=== PATIENT | female | born 1975 | race Caucasian/White ===

== ENCOUNTER 2021-11-27 10:02 | Outpatient (REF) | payer MEDICAID, SELFPAY ==
[2021-11-27 10:46] LABS: Binax Internal Control QC Valid; Binax Lot number: 9864; Binax Now Covid-19 Ag Negative (Negative)
== END 2021-11-27 10:03 | disposition home or self-care (01) ==
LOC: HO.LAB 10:02
PROVIDERS: Visit Provider Internal Medicine
DX: Z20.822 Contact with and (suspected) exposure to COVID-19 (principal)
CPT/HCPCS: C9803

== ENCOUNTER 2022-04-19 11:27 | Outpatient (REF) | payer MEDICAID, SELFPAY ==
[2022-04-19 12:17] LABS: COVID-19 Test Negative (Negative)
== END 2022-04-19 11:28 | disposition home or self-care (01) ==
LOC: HO.LAB 11:27
PROVIDERS: Visit Provider Internal Medicine
DX: Z20.822 Contact with and (suspected) exposure to COVID-19 (principal)
CPT/HCPCS: 87635; C9803

== ENCOUNTER → 2022-08-12 22:33 | Outpatient (REF) | payer MEDICAID, SELFPAY | LOC: HO.SL 22:33 | PROVIDERS: Visit Provider Nurse Practitioner Primary Care | DX: G47.33 Obstructive sleep apnea (adult) (pediatric) (principal) | CPT/HCPCS: 95810 ==

== ENCOUNTER 2023-05-07 08:15 | Outpatient (REF) | payer MEDICAID, SELFPAY ==
--- NOTE | ~2023-05-07 | MM_ITS ---
EXAMINATION: MM SCREENING DIGITAL BREAST TOMOSYNTHESIS, BILATERAL CLINICAL INFORMATION: Screening. Asymptomatic. Age 47. No prior mammography. No known family history breast cancer. The lifetime risk of breast cancer based on the Tyrer-Cuzick Model is 7%. COMPARISON: None (current study represents initial baseline exam). TECHNIQUE: Digital breast tomosynthesis is performed in both the craniocaudal and mediolateral oblique views along with computer-aided detection (CAD). Synthesized 2D images are generated from the tomosynthesis. Additional bilateral CC and additional bilateral MLO views are provided. FINDINGS: There are scattered areas of fibroglandular density (ACR BI-RADS breast composition Category b). Breast tissue composition borders on predominantly fatty. Background stromal markings are normal. No architectural abnormality. There are no significant masses, abnormal calcifications, or other abnormalities. The axilla and skin contours are unremarkable. MM/MM tomosynthesis screening BI IMPRESSION: No mammographic evidence of malignancy. ASSESSMENT: BI-RADS 1: Negative RECOMMENDATION: Routine annual mammography screening. This patient's information was entered into a reminder system with a target due date for their next mammogram.
== END 2023-05-07 08:16 | disposition home or self-care (01) ==
LOC: HO.MAMMO 08:15
PROVIDERS: PCP Nurse Practitioner Primary Care; Visit Provider Nurse Practitioner Primary Care
DX: Z12.31 Encounter for screening mammogram for malignant neoplasm of breast (principal)
CPT/HCPCS: 77063; 77067

== ENCOUNTER 2024-02-16 15:33 | Outpatient (REF) | payer MEDICAID, SELFPAY ==
[2024-02-19 07:48] LABS: TS Negative Control Passed; TS Panel A 0; TS Panel B 0; TS Positive Control Passed; TSpotTB Negative (Negative)
== END 2024-02-16 15:34 | disposition home or self-care (01) ==
LOC: HO.HHCL 15:33
PROVIDERS: Visit Provider Nurse Practitioner Primary Care
DX: Z11.1 Encounter for screening for respiratory tuberculosis (principal)
CPT/HCPCS: 36415; 86481

== ENCOUNTER 2024-03-01 15:28 | Emergency (ER) | payer MEDICAID, SELFPAY ==
--- NOTE | ~2024-03-01 | CT_ITS ---
EXAMINATION: CT ABDOMEN AND PELVIS WITHOUT CONTRAST CLINICAL INFORMATION: Right-sided flank pain COMPARISON: CT abdomen pelvis 06/30/2011 TECHNIQUE: Multidetector volumetric imaging was performed from the superior aspect of the liver through the pubic symphysis. Sagittal and coronal reformatted images were obtained on the technologist's workstation. This CT examination was performed using dose optimization techniques as appropriate, variously including the following: *Automated exposure control *Adjustment of mA and/or kV according to patient size (this includes techniques or standardized protocols for targeted exams where dose is matched to indication/reason for exam; i.e. extremities or head) *Use of iterative reconstruction technique DLP: 986 mGy-cm FINDINGS: LUNG BASES: The visualized lung bases are unremarkable. LIVER, GALLBLADDER, AND BILIARY TREE: The liver is enlarged measuring 21.2 cm in cephalocaudad dimension with decreased attenuation consistent with hepatic steatosis. No focal hepatic lesion or biliary ductal dilatation is present. The gallbladder is unremarkable with no evidence of radiopaque gallstones, gallbladder wall thickening, or obvious pericholecystic inflammatory changes. PANCREAS: Unremarkable. SPLEEN: Spleen is enlarged at 13 cm in size. ADRENAL GLANDS: Unremarkable. KIDNEYS AND URETERS: The kidneys are normal in size, shape, and attenuation. No hydronephrosis, hydroureter, or calculi seen. No perinephric stranding. BLADDER: Unremarkable. GASTROINTESTINAL TRACT: The small and large bowel are unremarkable. The appendix is unremarkable. ABDOMINAL WALL: No significant hernia is appreciated. LYMPH NODES: No retroperitoneal lymphadenopathy VASCULAR: Unremarkable. PELVIC VISCERA: An anteverted uterus is present with a lobulation on the right consistent with a fibroid. This should be confirmed with pelvic ultrasound. OSSEOUS STRUCTURES: Mild degenerative changes are present throughout the spine. No bony destructive lesions CT/CT abdomen pelvis wo IV con IMPRESSION: 1. A cause for the patient's right-sided flank pain has not been found. 2. Incidental note made of an enlarged fatty liver, mild splenomegaly and probable uterine fibroid. Pelvic ultrasound is recommended for further evaluation. Fleischner guidelines were followed.
[2024-03-01 15:49] VITALS: BP 172/100; PULSE 95; RESP 18; TEMP 36.6; O2SAT 97; BMI 48.7
--- NOTE | 2024-03-01 15:49 | ED_ITS ---
HPI - General Adult General Chief complaint: Abdominal Pain Stated complaint: lower rt abd pain Time Seen by Provider: 03/01/24 20:34 Source: patient, RN notes reviewed and old records reviewed Mode of arrival: ambulatory Limitations: no limitations History of Present Illness HPI narrative: 48-year-old female presents for evaluation of right lower abdominal pain. She reports her symptoms started mild 3 days ago and got worse a few hours prior to arrival. She reports her pain radiates to right flank and down her right leg. The pain is worse with movement or palpation. Denies any nausea vomiting, diarrhea. Denies any burning with urination or urinary frequency. She has no fevers or chills She describes the pain as 10/10, stabbing in nature Reports a history of section but no other abdominal surgeries Related Data Previous Rx's ?Medication ?Instructions ?Recorded cefuroxime axetil 250 mg tablet 250 mg PO BID #10 tabs 03/01/24 Allergies Allergy/AdvReac Type Severity Reaction Status Date / Time No Known Allergies Allergy Verified 03/01/24 15:50 Review of Systems 2 Constitutional: Constitutional: Denies chills, Denies fever(s) and Denies frequent falls Eyes: Eyes: Denies blurry vision ENT: Denies sore throat Cardiovascular: Cardiovascular: Denies chest pain and Denies dyspnea Respiratory: Respiratory: Denies cough and Denies dyspnea Gastrointestinal: Gastrointestinal: Reports abdominal pain, Denies nausea and Denies vomiting Musculoskeletal: Musculoskeletal: Reports back pain, Denies arthralgias, Denies joint swelling and Reports radiating pain into limb Integumentary/Breasts: Skin/Breast: Denies rash Neurologic: Denies frequent falls PMFSH Social History Social History Advance Directives: No Advance Directives Information Provided: Yes Physical Exam ED Vital Signs: Vital Signs - 24 hr 03/01/24 15:49 03/01/24 20:04 Temperature 98 F 97.8 F Pulse Rate 95 82 Respiratory Rate 18 17 Blood Pressure 172/100 H 176/92 H Pulse Oximetry 97 97 Oxygen Delivery Method Room Air Room Air BMI result Body Mass Index 48.7 Const General: healthy appearing, comfortable, no acute distress, alert and awake Nutritional Appearance: well nourished Orientation/consciousness: patient oriented x3 HENMT Head: Yes normocephalic and Yes atraumatic Eyes Eyelids: Yes eyelids normal Conjunctivae: conjunctivae normal Sclerae: sclerae normal Corneas: corneas normal Pupils: Equal, round and reactive pupils present EOM: EOMs intact bilaterally Neck Neck: Yes full ROM Resp Effort & Inspection: normal respiratory effort, able to speak in complete sentences, no audible wheezes and not labored Auscultation: clear to auscultation bilaterally GI Inspection: No distended Palpation (GI): Soft to palpation, not firm, Tenderness to palpation present (GI) in the RLQ, Guarding due to palpation present (GI) in the RLQ and not rigid General: Yes CVA tenderness on the right Back/Spine/Pelvis Other: Tenderness in the right lumbar paraspinous muscle region. Positive straight leg raise on right Back: CVA tenderness Skin General skin exam: elasticity normal Neuro General: patient oriented x3 Cranial nerves: Yes Equal, round and reactive pupils present and Yes Bilaterally intact EOM present Cognition (Neuro): normal cognition Extrem Other: Moving all extremities well without any obvious deformities Course Course Course Narrative: This is an RME: Additional HPI, ROS, PE not included below will be deferred to primary provider. 48 yo f presents w/ 2 days of RUQ pain, diarrhea and nausea . Not improving. Ibuprofen helps only slightly. Tells me its not my hip Plan- labs, UA Medications Administered Generic Name Dose Route Start Last Admin Trade Name Freq PRN Reason Stop Dose Admin Sodium Chloride 1,000 mls @ 999 mls/hr 03/01/24 21:30 03/01/24 21:46 Ns IV 03/01/24 22:30 999 mls/hr .Q1H1M ZOHRA Administration Discontinued Medications Generic Name Dose Route Start Last Admin Trade Name Freq PRN Reason Stop Dose Admin Morphine Sulfate 4 mg 03/01/24 21:21 03/01/24 21:46 Morphine Sulfate 4 Mg/Ml Cartridge IVPUSH 03/01/24 21:22 4 mg ONCE ONE Administration Protocol Ondansetron HCl 4 mg 03/01/24 21:21 03/01/24 21:46 Ondansetron Hcl 4 Mg/2 Ml Vial IVPUSH 03/01/24 21:22 4 mg ONCE ONE Administration Medical Decision Making Medical Decision Making MDM Narrative: [age] old female presents for evaluation of severe abdominal pain. She reports her symptoms became dull a few days ago on worse today. Patient's hematology to see showed no abnormalities. Her chemistry show elevated glucose with no evidence of DKA. She has a mild transaminitis which she has had in the past. Patient's urine has 3+ bacteria as well as calcium oxalate crystals. Concern for obstructive uropathy. Patient is tender in the right lower abdomen but also in the right flank and right lower back. We had a CT scan of the abdomen pelvis to evaluate for obstructive uropathy. I have a lower suspicion for acute appendicitis as there is no white count, no fever. The patient has no GI symptoms. Differential Diagnosis Differential Diagnoses: The differential diagnosis associated with the presentation includes Obstructive uropathy Right flank pain UTI Uterine fibroids Ovarian cyst Muscle strain Lab Data MDM Lab Attestation statement: I reviewed the patient's lab results. See above 03/01/24 16:03 03/01/24 16:03 Labs: Lab Results 03/01/24 03/01/24 Range/Units 16:03 20:25 WBC 9.4 (4.8-10.8) X10*3/uL RBC 5.05 (4.20-5.50) X10*6/uL Hgb 14.6 (12.0-16.0) g/dl Hct 42.7 (37.0-47.0) % MCV 84.6 (80.0-98.0) fL MCH 28.9 (27.0-33.0) pg MCHC 34.2 (31.0-35.0) g/dl RDW 12.3 (11.0-16.0) % Plt Count 259 (160-400) X10*3/uL MPV 10.1 (9.4-12.3) fL Immature Gran % (Auto) 0.3 (0.0-0.4) % Neut % (Auto) 59.6 (45-73) % Lymph % (Auto) 31.7 (20-40) % [place] % (Auto) 5.0 (2-11) % Eos % (Auto) 2.4 (0-4) % Baso % (Auto) 1.0 (0-2) % Lymph # (Auto) 3.0 (1.2-4.9) X10*3/uL [place] # (Auto) 0.5 (0.1-1.2) X10*3/uL Eos # (Auto) 0.2 (0.0-0.4) X10*3/uL Baso # (Auto) 0.1 (0.0-0.2) X10*3/uL Abs Immat Gran (auto) 0.03 (0.00-0.03) X10*3/uL Absolute Neuts (auto) 5.6 (2.0-8.3) x10*3/uL Absolute Nucleated RBC 0.000 (0.0-0.012) X10*3/uL Nucleated RBC % (auto) 0.0 (0.0-0.2) /100WBC Sodium 138 (135-145) mmol/L Potassium 3.9 (3.3-5.1) mmol/L Chloride 101 (96-108) mmol/L Carbon Dioxide 26 (22-29) mmol/L Anion Gap 15 (12-20) BUN 11 (9-16) mg/dL Creatinine 0.83 (0.5-1.4) mg/dL Estim Creat Clear Calc 104.0 Estimated GFR > 60 Random Glucose 354 H* (60-115) mg/dL Calcium 9.7 (8.4-10.2) mg/dL Magnesium 1.8 (1.6-2.6) mg/dL Total Bilirubin 0.3 (0.0-1.0) mg/dL AST 44 H (5-31) U/L ALT 71 H (0-31) U/L Alkaline Phosphatase 158 H (39-117) U/L Total Protein 7.6 (6.5-8.0) g/dL Albumin 4.3 (3.5-5.0) g/dL Urine Color Dark Yellow Urine Appearance Cloudy Urine pH 5.5 (5.0-9.0) Ur Specific [place] >= 1.030 H (1.005-1.025) Urine Protein 30 (1+) H (Neg-Trace) mg/dL Urine Glucose (UA) >=1000 H (Negative) mg/dL Urine Ketones 15 (Negative) mg/dL Urine Blood Negative (Negative) Urine Nitrite Negative (Negative) Ur Leukocyte Esterase Negative (Negative) Urine RBC 0-2 (0-2) /HPF Urine WBC 11-20 (0-5) /HPF Ur Squamous Epith Cells >20 (0-2) /HPF Calcium Oxalate Crystal Present Urine Bacteria 3+ (None Seen) Hyaline Casts 3-5 (0-2) /LPF Urine Yeast Present Independent Interpretation I performed an independent interpretation of an: CT Scan Interpretation: Agree with Radiology interpretation, no obvious cause of the patient's pain, no significant constipation. No obvious inflammatory changes Radiology Impression Discussion of test interpretation with radiology: I have reviewed the radiologist's reading. Radiologist Impression: IMPRESSION: 1. A cause for the patient's right-sided flank pain has not been found. 2. Incidental note made of an enlarged fatty liver, mild splenomegaly and probable uterine fibroid. Pelvic ultrasound is recommended for further evaluation. Discharge Plan Discharge Clinical Impression: Abdominal pain, Urinary tract infection, Acute hyperglycemia Patient Disposition: Home, Self-Care Instructions: Urinary Tract Infection in Women (ED) Additional Instructions: Your workup in the ER today was reassuring. Use ibuprofen or Tylenol as needed for pain. Use cefuroxime twice daily for 5 days to treat UTI Your CT scan did not show any concerning findings, your blood work showed elevated glucose Prescriptions: New cefuroxime axetil 250 mg tablet 250 mg PO BID Qty: 10 0RF Stand Alone Forms: Work/School Release Print Language: Hungarian
[2024-03-01 16:08] LABS: MANUAL DIFF FLAG NO
[2024-03-01 16:11] LABS: Basophils Absolute Auto 0.1 X10*3/uL (0.0-0.2); Eosinophils Absolute Auto 0.2 X10*3/uL (0.0-0.4); Eosinophils Percent Auto 2.4 % (0-4); Hematocrit 42.7 % (37.0-47.0); Hemoglobin 14.6 g/dl (12.0-16.0); Imm Gran Abs Auto 0.03 X10*3/uL (0.00-0.03); Imm Gran Pct Auto 0.3 % (0.0-0.4); Lymphocytes Percent Auto 31.7 % (20-40); Mean Corpuscular HGB Conc 34.2 g/dl (31.0-35.0); Mean Corpuscular Hemoglobin 28.9 pg (27.0-33.0); Mean Corpuscular Volume 84.6 fL (80.0-98.0); Mean Platelet Volume 10.1 fL (9.4-12.3); Monocytes Absolute Auto 0.5 X10*3/uL (0.1-1.2); Neutrophils Absolute Auto 5.6 x10*3/uL (2.0-8.3); Neutrophils Percent Auto 59.6 % (45-73); Platelet Count 259 X10*3/uL (160-400); Red Blood Count 5.05 X10*6/uL (4.20-5.50); Red Cell Distribution Width 12.3 % (11.0-16.0); White Blood Count 9.4 X10*3/uL (4.8-10.8)
[2024-03-01 16:32] LABS: Alanine Aminotransferase 71 U/L (0-31); Albumin Level 4.3 g/dL (3.5-5.0); Alkaline Phosphatase 158 U/L (39-117); Anion Gap 15 (12-20); Aspartate Amino Transferase 44 U/L (5-31); Bilirubin Total 0.3 mg/dL (0.0-1.0); Blood Urea Nitrogen 11 mg/dL (9-16); Calcium 9.7 mg/dL (8.4-10.2); Carbon Dioxide 26 mmol/L (22-29); Chloride 101 mmol/L (96-108); Estimated Glomerular Filt Rate > 60; Glucose Random 354 mg/dL (60-115); Magnesium 1.8 mg/dL (1.6-2.6); Potassium 3.9 mmol/L (3.3-5.1); Sodium 138 mmol/L (135-145); Total Protein 7.6 g/dL (6.5-8.0)
[2024-03-01 20:04] VITALS: BP 176/92; PULSE 82; RESP 17; TEMP 36.6; O2SAT 97
[2024-03-01 20:34] LABS: Appearance Urine Cloudy; Color Urine Dark Yellow; Glucose Urine UA >=1000 mg/dL (Negative); Leukocyte Esterase Urine Negative (Negative); Nitrite Urine Negative (Negative); PH 5.5 (5.0-9.0); Specific Gravity - Urine >= 1.030 (1.005-1.025); UMIC TRIGGER UACC YES; Urine Blood Negative (Negative); Urine Ketones 15 mg/dL (Negative); Urine Protein 30 (1+) mg/dL (Neg-Trace)
[2024-03-01 20:56] LABS: Bacteria Urine 3+ (None Seen); Calcium Oxalate Crystals Urine Present; RBC Urine 0-2 /HPF (0-2); Squamous Epithelial Cell Urine >20 /HPF (0-2)
[2024-03-01 20:58] LABS: UACC Culture Trigger YES
[2024-03-01] MEDS: Morphine Sulfate 4 MG/ML CARTRIDGE IVPUSH (21:46)
[2024-03-01] MEDS: 0.9 % Sodium Chloride 1,000 ML 999 ML IV (21:46)
[2024-03-01] MEDS: ondansetron HCL 4 MG/2 ML VIAL IVPUSH (21:46)
[2024-03-01 22:33] VITALS: BP 116/64; PULSE 74; RESP 19; TEMP 36.5; O2SAT 93
[2024-03-01] MEDS: Acetaminophen 325 MG TABLET 650 MG PO (22:56)
[2024-03-01] MEDS: Ibuprofen 600 MG TABLET PO (22:56)
[2024-03-01] MEDS: cefuroxime axetiL 250 MG TABLET PO (22:59)
== END 2024-03-01 23:16 | disposition home or self-care (01) ==
PROVIDERS: Physician Assistant; Emergency Provider Emergency Medicine; PCP Nurse Practitioner Primary Care
DX: R10.31 Right lower quadrant pain (principal); N39.0 Urinary tract infection, site not specified; R73.9 Hyperglycemia, unspecified
CPT/HCPCS: 36415; 74176; 80053; 81001; 83735; 85025; 87086; 96374; 96375; 99283; 99284; J2270; J2405

== ENCOUNTER 2025-01-10 07:23 | Emergency (ER) | payer MEDICAID, SELFPAY ==
--- NOTE | 2025-01-10 | ECG_ITS ---
Test Reason : dizziness Blood Pressure : */* mmHG Vent. Rate : 84 BPM Atrial Rate : 84 BPM P-R Int : 130 ms QRS Dur : 84 ms QT Int : 380 ms P-R-T Axes : 37 6 48 degrees QTcB Int : 449 ms Normal sinus rhythm Normal ECG When compared with ECG of 20-Jul-2020 18:00, No significant change was found Referred By: Generic ED Physician Electronically Signed By: Taye Cruz
[2025-01-10 07:25] VITALS: BP 144/79; PULSE 82; RESP 16; TEMP 36.6; O2SAT 100; BMI 49.1
[2025-01-10 07:50] LABS: Glucose, Whole Blood 460 mg/dL (60-115)
[2025-01-10 07:50] LABS: MANUAL DIFF FLAG NO
[2025-01-10 07:52] LABS: Basophils Absolute Auto 0.1 X10*3/uL (0.0-0.2); Basophils Percent Auto 0.9 % (0-2); Eosinophils Absolute Auto 0.2 X10*3/uL (0.0-0.4); Hematocrit 41.2 % (37.0-47.0); Hemoglobin 13.7 g/dl (12.0-16.0); Imm Gran Abs Auto 0.01 X10*3/uL (0.00-0.03); Imm Gran Pct Auto 0.1 % (0.0-0.4); Lymphocytes Absolute Auto 1.6 X10*3/uL (1.2-4.9); Lymphocytes Percent Auto 24.3 % (20-40); Mean Corpuscular HGB Conc 33.3 g/dl (31.0-35.0); Mean Corpuscular Hemoglobin 28.1 pg (27.0-33.0); Mean Corpuscular Volume 84.6 fL (80.0-98.0); Mean Platelet Volume 9.9 fL (9.4-12.3); Monocytes Absolute Auto 0.4 X10*3/uL (0.1-1.2); Monocytes Percent Auto 5.5 % (2-11); Neutrophils Absolute Auto 4.4 x10*3/uL (2.0-8.3); Neutrophils Percent Auto 66.2 % (45-73); Platelet Count 250 X10*3/uL (160-400); Red Blood Count 4.87 X10*6/uL (4.20-5.50); Red Cell Distribution Width 12.8 % (11.0-16.0); White Blood Count 6.7 X10*3/uL (4.8-10.8)
--- NOTE | 2025-01-10 08:04 | ED.GENADULT ---
HPI - General Adult General Chief complaint: Dizziness Stated complaint: dizzy, vomiting Time Seen by Provider: 01/10/25 07:55 Source: patient Mode of arrival: ambulatory Limitations: no limitations History of Present Illness HPI narrative: This is 49 years old the patient with history of diabetes presented to the emergency department complaining of nausea vomiting body aches, she woke up this morning with nausea she vomited fell also dizzy described the dizziness as lightheadedness Onset (ago): hour(s) (3) Radiation: non-radiation Severity: moderate Relieving factors: none Exacerbating factors: none Related Data Previous Rx's ?Medication ?Instructions ?Recorded cefuroxime axetil 250 mg tablet 250 mg PO BID #10 tabs 03/01/24 Allergies Allergy/AdvReac Type Severity Reaction Status Date / Time No Known Allergies Allergy Verified 01/10/25 07:30 Review of Systems Cardiovascular: Cardiovascular: Reports no additional cardiovascular complaints Respiratory: Respiratory: Reports no additional respiratory complaints Gastrointestinal: Gastrointestinal: Reports nausea and Reports vomiting PMFSH Past Medical History [facility] Narrative: Type 2 diabetes, obesity Social History Social History Alcohol intake: current Alcohol intake frequency: holidays/special occasions only Smoked in Last 30 Days: No Use of substances other than those prescribed or required for medical reasons: No Advance Directives: No Advance Directives Information Provided: Yes Patient : No Physical Exam ED Vital Signs: Vital Signs - 24 hr 01/10/25 07:25 01/10/25 08:39 01/10/25 11:03 Temperature 97.8 F 97.7 F 97.6 F Pulse Rate 82 84 80 Respiratory Rate 16 16 18 Blood Pressure 144/79 H 148/73 H 127/72 Pulse Oximetry 100 95 95 Oxygen Delivery Method Room Air Room Air 01/10/25 13:30 Temperature 98.6 F Pulse Rate 77 Respiratory Rate 16 Blood Pressure 130/73 Pulse Oximetry 95 Oxygen Delivery Method Room Air BMI result Body Mass Index 49.1 Not acute distress looks well Const General: cooperative Nutritional Appearance: well nourished Orientation/consciousness: patient oriented x3 Limitations: no limitations HENMT Head: Yes normal to inspection General nose exam: Normal external nose present Face and sinus: Yes normal facial exam Mouth: Normal oral and palatal mucosa present Neck Neck: Yes normal visual inspection Chest Chest palpation & inspection: normal inspection of the chest Cardio Jugular venous distension: no JVD Rate: regular rate Rhythm: regular rhythm GI Inspection: Yes normal to inspection Palpation (GI): Soft to palpation, not firm, nontender and no guarding Auscultation: normal bowel sounds Skin General skin exam: no rashes or lesions noted and elasticity normal Rashes: no rashes Neuro General: patient oriented x3 and CN's II-XI intact bilaterally Course Reevaluation(s) Reevaluation #1: Patient was re-evaluated aided at this time she is doing much better blood sugar is down no evidence of DKA anion gap normal ,bicarb normal tolerating p.o. well. This point she can be safely discharged home. I consulted registered nurse hh case manager they will arrange follow-up with the primary care physician Time: 14:13 Medications Administered Discontinued Medications Generic Name Dose Route Start Last Admin Trade Name Freq PRN Reason Stop Dose Admin Sodium Chloride 1,000 mls @ 999 mls/hr 01/10/25 08:15 01/10/25 11:59 Ns IVCONT 01/10/25 09:15 Infused .Q1H1M ZOHRA Infusion Sodium Chloride 1,000 mls @ 999 mls/hr 01/10/25 08:15 01/10/25 12:00 Ns IVCONT 01/10/25 09:15 Infused .Q1H1M ZOHRA Infusion Insulin Human Lispro 10 unit 01/10/25 08:12 01/10/25 08:44 Insulin Lispro 100 Unit/Ml 3 Ml Vial SUBCUT 01/10/25 08:13 10 unit ONCE ONE Administration Insulin Human Lispro 10 unit 01/10/25 12:04 01/10/25 12:16 Insulin Lispro 100 Unit/Ml 3 Ml Vial SUBCUT 01/10/25 12:05 10 unit ONCE ONE Administration Ondansetron HCl 4 mg 01/10/25 08:03 01/10/25 08:42 Ondansetron Hcl 4 Mg/2 Ml Vial IVPUSH 01/10/25 08:04 4 mg ONCE ONE Administration Medical Decision Making Medical Decision Making [facility] Narrative: Patient presented with a complaint of nausea vomiting since if 5 a.m. she is hyperglycemic in the emergency department we will provide IV fluids we will check labs Differential Diagnosis Differential Diagnoses: The differential diagnosis associated with the presentation includes Viral syndrome/dehydration/DKA Admission/Observation Consideration of admission/observation: Escalation of care including admission/observation considered Lab Data MDM Lab Attestation statement: I reviewed the patient's lab results. 01/10/25 07:45 01/10/25 07:45 Labs: Lab Results 01/10/25 01/10/25 01/10/25 Range/Units 07:44 07:45 08:33 WBC 6.7 (4.8-10.8) X10*3/uL RBC 4.87 (4.20-5.50) X10*6/uL Hgb 13.7 (12.0-16.0) g/dl Hct 41.2 (37.0-47.0) % MCV 84.6 (80.0-98.0) fL MCH 28.1 (27.0-33.0) pg MCHC 33.3 (31.0-35.0) g/dl RDW 12.8 (11.0-16.0) % Plt Count 250 (160-400) X10*3/uL MPV 9.9 (9.4-12.3) fL Immature Gran % (Auto) 0.1 (0.0-0.4) % Neut % (Auto) 66.2 (45-73) % Lymph % (Auto) 24.3 (20-40) % [place] % (Auto) 5.5 (2-11) % Eos % (Auto) 3.0 (0-4) % Baso % (Auto) 0.9 (0-2) % Lymph # (Auto) 1.6 (1.2-4.9) X10*3/uL [place] # (Auto) 0.4 (0.1-1.2) X10*3/uL Eos # (Auto) 0.2 (0.0-0.4) X10*3/uL Baso # (Auto) 0.1 (0.0-0.2) X10*3/uL Abs Immat Gran (auto) 0.01 (0.00-0.03) X10*3/uL Absolute Neuts (auto) 4.4 (2.0-8.3) x10*3/uL Absolute Nucleated RBC 0.000 (0.0-0.012) X10*3/uL Nucleated RBC % (auto) 0.0 (0.0-0.2) /100WBC Sodium 136 (135-145) mmol/L Potassium 4.5 (3.3-5.1) mmol/L Chloride 100 (96-108) mmol/L Carbon Dioxide 29 (22-29) mmol/L Anion Gap 12 (12-20) BUN 12 (9-16) mg/dL Creatinine 0.86 (0.5-1.4) mg/dL Estim Creat Clear Calc 92.6 Estimated GFR > 60 POC Glucose 460 H* 458 H* (60-115) mg/dL Random Glucose 466 H* (60-115) mg/dL Calcium 9.4 (8.4-10.2) mg/dL Total Bilirubin 0.3 (0.0-1.0) mg/dL AST 52 H (5-31) U/L ALT 74 H (0-31) U/L Alkaline Phosphatase 123 H (39-117) U/L Total Protein 7.8 (6.5-8.0) g/dL Albumin 4.3 (3.5-5.0) g/dL Urine Color Urine Appearance Urine pH (5.0-9.0) Ur Specific [place] (1.005-1.025) Urine Protein (Neg-Trace) mg/dL Urine Glucose (UA) (Negative) mg/dL Urine Ketones (Negative) mg/dL Urine Blood (Negative) Urine Nitrite (Negative) Ur Leukocyte Esterase (Negative) Urine RBC (0-2) /HPF Urine WBC (0-5) /HPF Ur Squamous Epith Cells (0-2) /HPF Urine Bacteria (None Seen) Hyaline Casts (0-2) /LPF Influenza Type A (PCR) NEGATIVE (Negative) Influenza Type B (PCR) NEGATIVE (Negative) RSV RNA Qual (PCR) NEGATIVE (Negative) SARS-CoV-2 RNA (RT-PCR) NEGATIVE (Negative) 01/10/25 01/10/25 01/10/25 Range/Units 10:38 11:40 13:28 WBC (4.8-10.8) X10*3/uL RBC (4.20-5.50) X10*6/uL Hgb (12.0-16.0) g/dl Hct (37.0-47.0) % MCV (80.0-98.0) fL MCH (27.0-33.0) pg MCHC (31.0-35.0) g/dl RDW (11.0-16.0) % Plt Count (160-400) X10*3/uL MPV (9.4-12.3) fL Immature Gran % (Auto) (0.0-0.4) % Neut % (Auto) (45-73) % Lymph % (Auto) (20-40) % [place] % (Auto) (2-11) % Eos % (Auto) (0-4) % Baso % (Auto) (0-2) % Lymph # (Auto) (1.2-4.9) X10*3/uL [place] # (Auto) (0.1-1.2) X10*3/uL Eos # (Auto) (0.0-0.4) X10*3/uL Baso # (Auto) (0.0-0.2) X10*3/uL Abs Immat Gran (auto) (0.00-0.03) X10*3/uL Absolute Neuts (auto) (2.0-8.3) x10*3/uL Absolute Nucleated RBC (0.0-0.012) X10*3/uL Nucleated RBC % (auto) (0.0-0.2) /100WBC Sodium (135-145) mmol/L Potassium (3.3-5.1) mmol/L Chloride (96-108) mmol/L Carbon Dioxide (22-29) mmol/L Anion Gap (12-20) BUN (9-16) mg/dL Creatinine (0.5-1.4) mg/dL Estim Creat Clear Calc Estimated GFR POC Glucose 422 H* 348 H 254 H (60-115) mg/dL Random Glucose (60-115) mg/dL Calcium (8.4-10.2) mg/dL Total Bilirubin (0.0-1.0) mg/dL AST (5-31) U/L ALT (0-31) U/L Alkaline Phosphatase (39-117) U/L Total Protein (6.5-8.0) g/dL Albumin (3.5-5.0) g/dL Urine Color Urine Appearance Urine pH (5.0-9.0) Ur Specific [place] (1.005-1.025) Urine Protein (Neg-Trace) mg/dL Urine Glucose (UA) (Negative) mg/dL Urine Ketones (Negative) mg/dL Urine Blood (Negative) Urine Nitrite (Negative) Ur Leukocyte Esterase (Negative) Urine RBC (0-2) /HPF Urine WBC (0-5) /HPF Ur Squamous Epith Cells (0-2) /HPF Urine Bacteria (None Seen) Hyaline Casts (0-2) /LPF Influenza Type A (PCR) (Negative) Influenza Type B (PCR) (Negative) RSV RNA Qual (PCR) (Negative) SARS-CoV-2 RNA (RT-PCR) (Negative) 01/10/25 Range/Units 13:33 WBC (4.8-10.8) X10*3/uL RBC (4.20-5.50) X10*6/uL Hgb (12.0-16.0) g/dl Hct (37.0-47.0) % MCV (80.0-98.0) fL MCH (27.0-33.0) pg MCHC (31.0-35.0) g/dl RDW (11.0-16.0) % Plt Count (160-400) X10*3/uL MPV (9.4-12.3) fL Immature Gran % (Auto) (0.0-0.4) % Neut % (Auto) (45-73) % Lymph % (Auto) (20-40) % [place] % (Auto) (2-11) % Eos % (Auto) (0-4) % Baso % (Auto) (0-2) % Lymph # (Auto) (1.2-4.9) X10*3/uL [place] # (Auto) (0.1-1.2) X10*3/uL Eos # (Auto) (0.0-0.4) X10*3/uL Baso # (Auto) (0.0-0.2) X10*3/uL Abs Immat Gran (auto) (0.00-0.03) X10*3/uL Absolute Neuts (auto) (2.0-8.3) x10*3/uL Absolute Nucleated RBC (0.0-0.012) X10*3/uL Nucleated RBC % (auto) (0.0-0.2) /100WBC Sodium (135-145) mmol/L Potassium (3.3-5.1) mmol/L Chloride (96-108) mmol/L Carbon Dioxide (22-29) mmol/L Anion Gap (12-20) BUN (9-16) mg/dL Creatinine (0.5-1.4) mg/dL Estim Creat Clear Calc Estimated GFR POC Glucose (60-115) mg/dL Random Glucose (60-115) mg/dL Calcium (8.4-10.2) mg/dL Total Bilirubin (0.0-1.0) mg/dL AST (5-31) U/L ALT (0-31) U/L Alkaline Phosphatase (39-117) U/L Total Protein (6.5-8.0) g/dL Albumin (3.5-5.0) g/dL Urine Color Yellow Urine Appearance Clear Urine pH >= 9.0 (5.0-9.0) Ur Specific [place] >= 1.030 H (1.005-1.025) Urine Protein 30 (1+) H (Neg-Trace) mg/dL Urine Glucose (UA) 500 H (Negative) mg/dL Urine Ketones Negative (Negative) mg/dL Urine Blood Negative (Negative) Urine Nitrite Negative (Negative) Ur Leukocyte Esterase Negative (Negative) Urine RBC 0-2 (0-2) /HPF Urine WBC 6-10 H (0-5) /HPF Ur Squamous Epith Cells 6-10 (0-2) /HPF Urine Bacteria Trace (None Seen) Hyaline Casts 0-2 (0-2) /LPF Influenza Type A (PCR) (Negative) Influenza Type B (PCR) (Negative) RSV RNA Qual (PCR) (Negative) SARS-CoV-2 RNA (RT-PCR) (Negative) External Record Review External record reviewed: Inpatient record Discharge Plan Discharge Clinical Impression: Hyperglycemia Patient Disposition: Home, Self-Care Instructions: Diabetic Hyperglycemia (ED) Additional Instructions: Follow-up with your primary care physician, call today and make an appointment unit to see him probably tomorrow of the latest on Tuesday. Return to emergency room if you worse Prescriptions: No Action cefuroxime axetil 250 mg tablet 250 mg PO BID Qty: 10 0RF Referrals: Sharmin Issa NP [Primary Care Provider] - 1 day Print Language: Nauruan
[2025-01-10 08:13] LABS: Alanine Aminotransferase 74 U/L (0-31); Albumin Level 4.3 g/dL (3.5-5.0); Alkaline Phosphatase 123 U/L (39-117); Anion Gap 12 (12-20); Aspartate Amino Transferase 52 U/L (5-31); Bilirubin Total 0.3 mg/dL (0.0-1.0); Blood Urea Nitrogen 12 mg/dL (9-16); Calcium 9.4 mg/dL (8.4-10.2); Carbon Dioxide 29 mmol/L (22-29); Chloride 100 mmol/L (96-108); Creatinine Clr Calc Pharmacy 92.6; Estimated Glomerular Filt Rate > 60; Glucose Random 466 mg/dL (60-115); Potassium 4.5 mmol/L (3.3-5.1); Sodium 136 mmol/L (135-145); Total Protein 7.8 g/dL (6.5-8.0)
[2025-01-10] MEDS: 0.9 % Sodium Chloride 1,000 ML 999 ML IVCONT ×2 (08:34)
[2025-01-10 08:39] VITALS: BP 148/73; PULSE 84; RESP 16; TEMP 36.5; O2SAT 95
[2025-01-10 08:39] LABS: Glucose, Whole Blood 458 mg/dL (60-115)
[2025-01-10] MEDS: ondansetron HCL 4 MG/2 ML VIAL IVPUSH (08:42)
[2025-01-10] MEDS: Insulin Lispro 100 UNIT/ML 3 ML VIAL 10 UNIT SUBCUT ×2 (08:44→12:16)
--- OUTSIDE RECORDS SUMMARY | 2025-01-10 08:48 | XMS_ITS | Encounter Summary ---
Author Organization [employer] Address [address] 7[address] [place] [address] Care Team Providers Care Environmental Services Floor Tech Name Role Phone Sharmin Issa Primary Care Provider [phone] Reason for Visit * Reason Onset Date Comments Appointment Request 10/12/2023 Encounter Details Date Type Department Care Team ([facility] st Contact Info) Description 10/12/2023 Telephone [facility] MEDICINE [address] [place] [address] Sharmin Issa ANP [address] [place] [address] Appointment Request Social History Tobacco Use Types Packs/Day Years Used Date Smoking Tobacco: Never Smokeless Tobacco: Never Alcohol Use Standard Drinks/Week Comments Not Currently 0 (1 standard drink = 0.6 oz pur e alcohol) Housing Stability Answer Date Recorded What is your housing situation today? I have merced morales 09/12/[address] you li ve. Do you have problems with any of the following? None of the above 09/12/2023 Food Insecurity Answer Date Recorded Within the past 12 months, y ou worried that your food would run out before you got money to buy more: Never True 09/12/2023 Within the past 12 months,th e food you bought just didn't last and you didn't have enough money to get more: Never True Transportation Answer Date Recorded In the past 12 months, has l ack of transportation kept you from medical appts, meetings, work or from getting things needed for daily living? No 09/12/2023 Utilities Answer Date Recorded In the past 12 months, has t he electric, gas, oil or water company threatened to shut off services in your home? No 09/12/2023 Depression Answer Date Recorded Patient Health Questionnaire-2 Score 0 03/25/2023 Comments Unknown Sex and Gender Information Value Date Recorded Sex Assigned at Female 05/31/2024 6:28 PM EDT Legal Sex Female 6:04 PM EDT Gender Identity Female 05/31/2024 6:28 PM EDT Sexual Orientation Choose not to disclose 2023 6:28 PM EDT documented as of this encounter Miscellaneous Notes * Telephone Encounter - Xenia Smith - 10/12/2023 2:31 PM EST Tc from pt requesting a f/u appt with PCP, senior mortgage underwriter ask pt if any concerns at the moment pt states no. documented in this encounter Plan of Treatment Not on file documented as of this encounter Visit Diagnoses Not on filedocumented in this encounter Care Teams Environmental Services Floor Tech Relationship Specialty Start Date End Date Sharmin Issa ANP [address] [place] [id number] PCP - General Family Medicine 07/03/21 documented as of this encounter
--- OUTSIDE RECORDS SUMMARY | 2025-01-10 08:48 | XMS_ITS | Encounter Summary ---
Author Organization [employer] Address [address] [facility] [address] 7t [place] [address] Care Team Providers Care Administrator Of Home Health Name Role Phone Sharmin Issa Primary Care Provider [phone] Reason for Referral * Consultation (Routine) - Closed Specialty Diagnoses / Procedures Referred By Contgissel t Referred To Contact Optometry Diagnoses Routine eye exam Type 2 diabetes mellitus with hyperlipidemia ([facility]/HCC) ([facility]) Essential hypertension Sharmin Issa ANP [address] [place] [address] Phone: tel: fax: [facility] OPTOMETRY [address] [place] [phone] Phone: tel: fax: Referral ID Status Reason Start Date Expiration Date V isits Requested Visits Authorized [id number] Closed Consult and Treat 01/26/2024 01/25/2025 1 1 Reason for Visit * Reason Onset Date Comments Referral 01/26/2024 Encounter Details Date Type Department Care Team ([facility] st Contact Info) Description 01/26/2024 Telephone [facility] MEDICINE [address] [place] [address] Sharmin Issa ANP [address] [place] [address] Referral Social History Tobacco Use Types Packs/Day Years [...] Patient Health Questionnaire-2 Score 0 03/25/2023 Comments No Sex and Gender Information Value Date Recorded Sex Assigned at Female 05/31/2024 6:28 PM EDT Legal Sex Female 6:04 PM EDT Gender Identity Female 05/31/2024 6:28 PM EDT Sexual Orientation Choose not to disclose 2023 6:28 PM EDT documented as of this encounter Miscellaneous Notes * Telephone Encounter - Xenia Smith - 01/26/2024 10:45 AM EDT Tc from pt requesting a referral for [facility], stated was a recommendation from Dr Issa documented in this encounter Plan of Treatment Scheduled Referrals Name Type Priority Associated Diagnoses Orde r Schedule Referral to [facility] Eye Care Outpatient Referral Routine Routine eye exam Type 2 diabetes mellitus with hyperlipidemia (CMS/HCC) Essential hypertension Expected: 01/26/2024 (Approximate), Expires: 01/25/2025 documented as of this encounter Visit Diagnoses Diagnosis Routine eye exam Examination of eyes and vision Type 2 diabetes mellitus with hyperlipidemia (CMS/HCC) ([facility]) Essential hypertension Unspecified essential hypertension documented in this encounter Care Teams Administrator Of Home Health Relationship Specialty Start Date End Date Sharmin Issa ANP [address] [place] [address] PCP - General Family Medicine 07/03/21 documented as of this encounter
--- OUTSIDE RECORDS SUMMARY | 2025-01-10 08:48 | XMS_ITS | Encounter Summary ---
Author Organization [employer] Address [address] 7[address] [place] [address] Care Team Providers Care Stationary Engineer Name Role Phone Sharmin Issa Primary Care Provider [phone] Reason for Visit * Reason Onset Date Comments Med Refill 07/04/2024 Encounter Details Date Type Department Care Team ([facility] st Contact Info) Description 07/04/2024 Telephone [facility] MEDICINE [address] [place] [address] Sharmin Issa ANP [address] [place], [place] [phone] Med Refill Social History Tobacco Use Types Packs/Day Years Used Date Smoking Tobacco: Never Smokeless Tobacco: Never Alcohol Use Standard Drinks/Week Comments Not Currently 0 (1 standard drink = 0.6 oz pur e alcohol) Depression Answer Date Recorded Patient Health Questionnaire-9 Score 6 04/05/2024 Patient Health Questionnaire-9 Score 6 04/05/2024 Last PHQ-9: Questionnaire Data Not on file 0 04/05/2024 Housing Stability Answer Date Recorded What is your housing situation today? I have merced morales 05/31/[address] you li ve. Do you have problems with any of the following? None of the above 05/31/2024 Food Insecurity Answer Date Recorded Within the past 12 months, y ou worried that your food would run out before you got money to buy more: Never True 05/31/2024 Within the past 12 months,th e food you bought just didn't last and you didn't have enough money to get more: Never True Transportation Answer Date Recorded In the past 12 months, has l ack of transportation kept you from medical appts, meetings, work or from getting things needed for daily living? No 05/31/2024 Utilities Answer Date Recorded In the past 12 months, has t he electric, gas, oil or water company threatened to shut off services in your home? No 05/31/2024 Depression Answer Date Recorded Patient Health Questionnaire-2 Score 0 04/05/2024 Comments No Sex and Gender Information Value Date Recorded Sex Assigned at Female 05/31/2024 6:28 PM EDT Legal Sex Female 6:04 PM EDT Gender Identity Female 05/31/2024 6:28 PM EDT Sexual Orientation Choose not to disclose 2023 6:28 PM EDT documented as of this encounter Miscellaneous Notes * Telephone Encounter - Marichuy Ellsworth LPN - 07/04/2024 2:22 PM EDT Medication was sent to [facility] # [id number] on 05/30/24 90 day supply. * Telephone Encounter - Raffy Tripp - 07/04/2024 2:05 PM EDT TC from pt requesting medication refill. Medications needing refill: metFORMIN (Glucophage) 1000 MG tablet To be sent to: [facility] #[id number] documented in this encounter Plan of Treatment Not on file documented as of this encounter Visit Diagnoses Not on filedocumented in this encounter Additional Health Concerns Assessment Noted Time PHQ-9 Depression Total Score: 6 04/05/20 24 1:07 PM EDT documented as of this encounter Care Teams Stationary Engineer Relationship Specialty Start Date End Date Sharmin Issa ANP [address] [place] [phone] PCP - General Family Medicine 07/03/21 documented as of this encounter
--- OUTSIDE RECORDS SUMMARY | 2025-01-10 08:48 | XMS_ITS | Encounter Summary ---
Author Organization [employer] Address [address] 7[address] [place] [address] Care Team Providers Care Supervisor Type Photography Name Role Phone Sharmin Issa Primary Care Provider [phone] Reason for Visit * Reason Comments Med Refill Encounter Details Date Type Department Care Team ([facility] st Contact Info) Description 07/04/2024 Refill [facility] CHC MED & PEDS [address] [place] [address] Sharmin Issa ANP [address] [place] [address] Hypertension associated with diabetes (CMS/HCC) (CMS/HCC) Social History Tobacco Use Types Packs/Day Years [...] PM EDT documented as of this encounter Plan of Treatment Not on file documented as of this encounter Visit Diagnoses Diagnosis Hypertension associated with diabetes (CMS/HCC) (CMS/HCC) Unspecified essential hypertension documented in this encounter Additional Health Concerns Assessment Noted Time PHQ-9 Depression Total Score: 6 04/05/20 24 1:07 PM EDT documented as of this encounter Care Teams Supervisor Type Photography Relationship Specialty Start Date End Date Sharmin Issa ANP [address] [place] [id number] PCP - General Family Medicine 07/03/21 documented as of this encounter
--- OUTSIDE RECORDS SUMMARY | 2025-01-10 08:48 | XMS_ITS | Encounter Summary ---
Author Organization [employer] Address [address] [facility] [address] [place] [address] Care Team Providers Care Adhesive Bonding Machine Operator Name Role Phone Sharmin Issa Primary Care Provider [phone] Reason for Visit * Reason Comments Med Refill Encounter Details Date Type Department Care Team ([facility] st Contact Info) Description 10/12/2023 Refill [facility] CH[facility] MED & PEDS [address] [place] [address] Sharmin Issa ANP [address] [facility] [place] [address] Social History Tobacco Use Types Packs/Day Years [...] on filedocumented in this encounter Care Teams Adhesive Bonding Machine Operator Relationship Specialty Start Date End Date Sharmin Issa ANP [address] [place] [id number] PCP - General Family Medicine 07/03/21 documented as of this encounter
--- OUTSIDE RECORDS SUMMARY | 2025-01-10 08:48 | XMS_ITS | Encounter Summary ---
Author Organization [employer] Address [address] [place] [address] Care Team Providers Care Piggery Worker Name Role Phone Sharmin Issa MALKA Primary Care Provider [phone] Reason for Visit * Reason Comments Med Refill Encounter Details Date Type Department Care Team ([facility] st Contact Info) Description 07/04/2024 Refill [facility] CHC MED & PEDS [address] [place] [address] Akua Benoit MD [address] [place] [address] Hypertension associated with diabetes (CMS/HCC) ([facility]/HCC) Social History Tobacco Use Types Packs/Day Years [...] documented as of this encounter Care Teams Piggery Worker Relationship Specialty Start Date End Date Sharmin Issa ANP [address] [place] [address] PCP - General Family Medicine 07/03/21 documented as of this encounter
--- OUTSIDE RECORDS SUMMARY | 2025-01-10 08:49 | XMS_ITS | Encounter Summary ---
Author Organization [employer] Address [address] [place] [address] Care Team Providers Care Manager Income Tax Name Role Phone Sharmin Issa Primary Care Provider [phone] Reason for Visit * Reason Comments Med Refill Encounter Details Date Type Department Care Team ([facility] st Contact Info) Description 12/19/2024 Refill [facility] CHC MED & PEDS [address] [place] [address] Sharmin Issa ANP [address] [facility] [place] [address] Uncomplicated asthma, unspecified asthma severity, unspecified whether persistent Social History Tobacco Use Types Packs/Day Years [...] as of this encounter Visit Diagnoses Diagnosis Uncomplicated asthma, unspecified asthma severity, unspecified whether persistent documented in this encounter Additional Health Concerns Assessment Noted Time PHQ-9 Depression Total Score: 6 04/05/20 24 1:07 PM EDT documented as of this encounter Care Teams Manager Income Tax Relationship Specialty Start Date End Date Sharmin Issa ANP [address] [place] [id number] PCP - General Family Medicine 07/03/21 documented as of this encounter
--- OUTSIDE RECORDS SUMMARY | 2025-01-10 08:49 | XMS_ITS | Encounter Summary ---
Author Organization [employer] Address [address] [place] [address] Care Team Providers Care Reed Maker Name Role Phone Sharmin Issa Primary Care Provider [phone] Reason for Visit * Reason Comments Med Refill Encounter Details Date Type Department Care Team ([facility] st Contact Info) Description 12/31/2024 Refill [facility] MEDICINE [address] [place] [address] Sharmin Issa ANP [address] [place] [address] Hypertension associated with diabetes (CMS/HCC) (CMS/HCC) Social [...] Diagnoses Diagnosis Hypertension associated with diabetes (CMS/HCC) ([facility]) Unspecified essential hypertension documented in this encounter Additional Health Concerns Assessment Noted Time PHQ-9 Depression Total Score: 6 04/05/20 24 1:07 PM EDT documented as of this encounter Care Teams Reed Maker Relationship Specialty Start Date End Date Sharmin Issa ANP [address] [place] [id number] PCP - General Family Medicine 07/03/21 documented as of this encounter
--- OUTSIDE RECORDS SUMMARY | 2025-01-10 08:49 | XMS_ITS | Clinical Summary ---
Author Organization [employer] Address [address] [place] [address] Care Team Providers Care Milling Machine Operator Gear Name Role Phone Tennille Crespo MALKA Primary Care Provider [phone] Allergies No known active allergies Medications glucose-vitamin C 4-6 GM-MG oral gel Take 4 tablets by oral route if blood glucose is under 60. Wait 15 min, recheck blood glucose, if under 70 take 4 tabs again. 021 Active Continuous Blood Gluc Sap Fico Architect (FreeStyle Rohini 2 Andrews) deviceIndications :Type 2 diabetes mellitus with hyperlipidemia (CMS/HCC) ([facility]) 1 each 5 (five) times a day. 1 each 024 Active Continuous Blood Gluc Sensor (FreeStyle Rohini 2 Sensor) miscIndications:T ype 2 diabetes mellitus with hyperlipidemia (CMS/HCC) (CMS/[facility]) 1 each every 14 (fourteen) days. 6 each 3 024 Active Additional Information Patient not taking.Reported on 04/05/2024 atorvastatin (Lipitor) 10 MG tablet TAKE 1 TABLET BY MOUTH EVERY DAY 90 tablet 024 Active Ventolin HFA 108 (90 Base) MCG/ACT inhalerIndication s:Moderate persistent asthma without complication INHALE 2 PUFFS BY MOUTH EVERY 4 HOURS 36 g 2 024 Active Advair Diskus 500-50 MCG/ACT aerosol powder INHALE 1 PUFF BY MOUTH EVERY 12 HOURS 60 each 1 024 Active cetirizine (ZyrTEC) 10 MG tabletIndications :Nasal congestion TAKE 1 TABLET BY MOUTH ONCE EVERY MORNING NEEDED FOR ALLERGIES 90 tablet 1 024 Active lisinopril-hydroC HLOROthiazide 20-12.5 MG tabletIndications :Essential hypertension TAKE 1 TABLET BY MOUTH EVERY MORNING 90 tablet 1 024 Active semaglutide (Rybelsus) 14 MG tabletIndications :Type 2 diabetes mellitus with hyperlipidemia (CMS/HCC) ([facility]/HCC) Take 1 tablet (14 mg) by mouth before breakfast. 90 tablet 3 024 2024 Active montelukast (Singulair) 10 MG tabletIndications :Uncomplicated asthma, unspecified asthma severity, unspecified whether persistent TAKE 1 TABLET BY MOUTH EVERY EVENING 90 tablet 1 025 Active cholecalciferol VITAMIN D (Vitamin D-3) 50 MCG (1999 UT) capsule TAKE 1 CAPSULE(50 MCG) BY MOUTH IN THE MORNING 90 capsule 1 025 Active amLODIPine (Norvasc) 10 MG tablet TAKE 1 TABLET(10 MG) BY MOUTH IN THE MORNING 90 tablet 1 025 Active metFORMIN (Glucophage) 1000 MG tabletIndications :Hypertension associated with diabetes (CMS/HCC) ([facility]) TAKE 1 TABLET BY MOUTH TWICE DAILY WITH THE MORNING AND EVENING MEAL 180 tablet 1 025 Active cholecalciferol VITAMIN D (Vitamin D-3) 50 MCG (1999 UT) capsule TAKE 1 CAPSULE(50 MCG) BY MOUTH IN THE MORNING 90 capsule 1 024 2024 Discontinued montelukast (Singulair) 10 MG tabletIndications :Uncomplicated asthma, unspecified asthma severity, unspecified whether persistent TAKE 1 TABLET BY MOUTH EVERY EVENING 90 tablet 1 024 2024 Discontinued amLODIPine (Norvasc) 10 MG tablet TAKE 1 TABLET(10 MG) BY MOUTH IN THE MORNING 90 tablet 1 024 2024 Discontinued metFORMIN (Glucophage) 1000 MG tabletIndications :Hypertension associated with diabetes (CMS/HCC) ([facility]) TAKE 1 TABLET BY MOUTH TWICE DAILY WITH THE MORNING AND EVENING MEAL 180 tablet 1 024 2024 Discontinued Active Problems Problem Noted Date Diagnosed Date Screening for colorectal cancer 04/06/2024 Assessment & Plan (04/06/2024 1:16 PM EDT): Send cologaurd again. I gave pt information of [employer] to call and set up for delivery Screening mammogram for breast cancer 04/06/2024 Encounter for preventive health examination 03/15 Assessment & Plan (04/06/2024 1:16 PM EDT): Discussed with patient re increase fresh fruit and vegetable intake. Counseled re moderate exercise as tolerated, up to 20min/d Patient feels safe at home. PAP smear up to date, next one due 2025 Mammogram up to date, next one due 2023 Eye exam overdue, refer to [facility] clinic CRC screen order cologaurd again, pt will call them and set up w/ delivery instructions Labs up to date, fu w/ PCP Vaccinations agreed to have PCV20, declined covid booster. At advised to have covid booster at earliest convenience Dental visit overdue, I gave her information about local dental clinics to make an appointment JAYLEN Tinea pedis of both feet 04/06/2024 Assessment & Plan (04/06/2024 1:20 PM EDT): Keep area clean and dry, advised about tight control of DM Use clotrimazole cream on affected areas Reconsult PRN Essential hypertension 02/13/2023 Moderate persistent asthma without complication 02/13/2023 Type 2 diabetes mellitus with hyperlipidemia (CM S/HCC) 02/13/2023 Overview (04/05/2024): Metformin 1000g BID Rybelsus 14mg Statin: Atorvastatin CEM/ARB: lisinopril-hydrochlorothiazide ASA: no Assessment & Plan (04/06/2024 1:17 PM EDT): Seen yesterday by PCP, fu POC Resolved Problems Problem Noted Date Diagnosed Date Resolved Date Obstructive sleep apnea syndrome 02/13/2023 03/25/2023 Encounters Date Type Department Care Team Description 12/31/2024 Refill [facility] [address] [place] [address] Tennille Crespo ANP Hypertension associated with diabetes ([facility]) ([facility]) 12/19/2024 Refill [facility] [address] [address] Tennille Crespo ANP Uncomplicated asthma, unspecified asthma severity, unspecified whether persistent from Last 3 Months Immunizations Name Administration Dates Next Due Influenza injectable quadriv alent IIV4 with preservative 09/27/2019 Influenza injectable quadrivalent preservative f ree 09/18/2021 Pneumococcal Conjugate PCV 20 04/06/2024 Pneumococcal Polysaccharide PPSV23 09/27/2019, Tdap 09/27/2019 Social History Tobacco Use Types Packs/Day Years Used Date Smoking Tobacco: Never Smokeless Tobacco: Never Tobacco Cessation:Counseling Given: Not Answered Alcohol Use Standard Drinks/Week Comments Not Currently 0 (1 standard drink = 0.6 oz pur e alcohol) Depression Answer Date Recorded Patient Health Questionnaire-9 Score 6 04/05/2024 Patient Health Questionnaire-9 Score 6 04/05/2024 Last PHQ-9: Questionnaire Data Not on file 0 04/05/2024 Housing Stability Answer Date Recorded What is your housing situation today? I have [employer] [place] 05/31/[address] you [...] not to disclose 2023 6:28 PM EDT Last Filed Vital Signs Vital Sign Reading Time Taken Comments Blood Pressure 132/75 04/06/2024 9:39 AM EDT Pulse 79 04/06/2024 9:39 AM EDT Temperature 36.6 ??C (97.9 ??F) 04/06/2024 9:39 AM ED T Respiratory Rate 18 04/05/2024 1:06 PM EDT Oxygen Saturation 96% 04/06/2024 9:39 AM EDT Inhaled Oxygen Concentration - - Weight 121 kg (267 lb) 04/06/2024 9:39 AM EDT Height 157.5 cm (5' 2 ) 04/06/2024 9:39 AM EDT Body Mass Index 48.83 04/06/2024 9:39 AM EDT Plan of Treatment Health Maintenance Due Date Last Done Comments CT Colonography 1973 Colonoscopy 1973 Colorectal Cancer Screening 1975 FIT DNA/Cologuard 1973 FIT 1973 FOBT 1973 Sigmoidoscopy 1973 Alcohol/Substance Use Screening 1985 Family Planning (PISQ) 1988 Hepatitis B Vaccines (1 of 3 - 19+ 3-dose series) 1992 Diabetes: Urine Protein Screening 01/18/2023 01/18/2022, 01/28/2021 Zoster Vaccines (1 of 2) 2023 Lipid Panel 02/19/2024 02/18/2023, 02/12, 01/28/2021 Diabetes: Hemoglobin A1C 07/06/2024 024, 01/05/2024, 11/24/2023, Additional history exists COVID-19 Vaccine ( season) 2024 07/01/2022, 01/14/2022, 12/24/2021 Influenza Vaccine (#1) 2024 09/18/2021, 2018 Pap Smear 09/18/2024 09/18/2021 SDOH Screening 03/29/2025 03/29/2024 Depression Screening 04/05/2025 04/05/2024, 04/05/20 Diabetes: Foot Exam 04/06/2025 04/06/2024, 04/06/2024, 04/06/2024, Additional history exists Mammogram 05/07/2025 05/07/2023 Tobacco Screening 08/24/2025 08/24/2024 Eye Exam 08/16/2026 08/16/2024, 01/2024, 08/16/2024, Additional history exists Cervical Cancer Screening 09/18/2026 HPV/Cotest 09/18/2026 09/18/2021 DTaP/Tdap/Td Vaccines (2 - Td or Tdap) 09/27/2029 09/27/2019 RSV Patients and Patients Aged 60 years or older (1 - 1-dose 75+ series) 2048 HIV Screening Completed 02/18/2023, 01/18/2022 Hepatitis C Screening Completed 02/18/2023 , 01/18/2022, 01/28/2021 Pneumococcal Vaccine: 50+ Years Completed 04/06/2024, 09/27/2019, 02/25/2017 HIB Vaccines Aged Out No longer eligi ble based on patient's age to complete this topic HPV Vaccines Aged Out No longer eligi ble based on patient's age to complete this topic Hepatitis A Vaccines Aged Out No long er eligible based on patient's age to complete this topic IPV Vaccines Aged Out No longer eligi ble based on patient's age to complete this topic Meningococcal Vaccine Aged Out No anders sudheer eligible based on patient's age to complete this topic RSV under 20 months Aged Out No longe r eligible based on patient's age to complete this topic Rotavirus Vaccines Aged Out No longer eligible based on patient's age to complete this topic Procedures Procedure Name Priority Date/Time Associated Diagnosis Comments GLUCOSE, WHOLE BLOOD Routine 01/10/2025 8:33 AM EST COMPREHENSIVE METABOLIC PANEL Routine 01/10/2025 7:45 AM EST CBC WITH AUTO DIFFERENTIAL Routine 01/10/2025 7:45 AM EST GLUCOSE, WHOLE BLOOD Routine 01/10/2025 7:44 AM EST POCT GLYCATED HEMOGLOBIN, TOTAL Routine 04/05/2024 1:22 PM EDT Type 2 diabetes mellitus with hyperlipidemia (CMS/HCC) (CMS/HCC) BI MAMMOGRAM SCREENING TOMOSYNTHESIS BILATERAL Routine 05/07/2023 8:37 AM EDT HEPATITIS C AB W/REFL TO HCV RNA, QN, PCR Routine 02/18/2023 8:22 AM EDT Routine screening for STI (sexually transmitted infection) HIV 1/2 ANTIGEN/ANTIBODY, FOURTH GENERATION W/RFL Routine 02/18/2023 8:22 AM EDT Routine screening for STI (sexually transmitted infection) LIPID PANEL, STANDARD Routine 02/18/2023 8:22 AM EDT Healthcare maintenance Hypertension associated with diabetes (CMS/HCC) ALBUMIN, RANDOM URINE W/CREATININE Routine 01/18/2022 9:17 AM EST HPV MRNA E6/E7 Routine 09/18/2021 12:00 AM EDT THINPREP PAP Routine 09/18/2021 12:00 AM EDT from Last 3 Months or Most Recently Relevant to Health Maintenance Results * (ABNORMAL) Glucose, Whole Blood (01/10/2025 8:33 AM EST) Only the most recent of2 resultswithin the time period is included. Glucose, Whole Blood 458(HH) 60 - 115 mg/dL [facility] Comment:METER #: [id number] 01/10/2025 8:33 AM EST 01/10/2025 8:39 AM EST us Generic External Data Provider LAB BLOOD ORDERAB LES Final Result [facility] [address] [place] [phone] * CBC auto differential (01/10/2025 7:45 AM EST) White Blood Count 6.7 4.8 - 10.8 X10*3/uL [facility] Red Blood Count 4.87 4.20 - 5.50 X10*6/uL [facility] Hemoglobin 13.7 12.0 - 16.0 g/dl [facility] Hematocrit 41.2 37.0 - 47.0 % [facility] Mean Corpuscular Volume 84.6 80.0 - 98.0 fL [facility] Mean Corpuscular Hemoglobin 28.1 27.0 - 33.0 pg [facility] Mean Corpuscular HGB Conc 33.3 31.0 - 35.0 g/dl [facility] Red Cell Distribution Width 12.8 11.0 - 16.0 % [facility] Platelet Count 250 160 - 400 X10*3/uL [facility] Mean Platelet Volume 9.9 9.4 - 12.3 fL [facility] Neutrophils Percent Auto 66.2 45 - 73 % [facility] Imm Gran Pct Auto 0.1 0.0 - 0.4 % [facility] Lymphocytes Percent Auto 24.3 20 - 40 % [facility] Monocytes Percent Auto 5.5 2 - 11 % [facility] Eosinophils Percent Auto 3.0 0 - 4 % [facility] Basophils Percent Auto 0.9 0 - 2 % [facility] NRBC Pct Auto 0.0 0.0 - 0.2 /100WBC [facility] Neutrophils Absolute Auto 4.4 2.0 - 8.3 x10*3/uL [facility] Imm Gran Abs Auto 0.01 0.00 - 0.03 X10*3/uL [facility] Lymphocytes Absolute Auto 1.6 1.2 - 4.9 X10*3/uL [facility] Monocytes Absolute Auto 0.4 0.1 - 1.2 X10*3/uL [facility] Eosinophils Absolute Auto 0.2 0.0 - 0.4 X10*3/uL [facility] Basophils Absolute Auto 0.1 0.0 - 0.2 X10*3/uL [facility] NRBC Abs Auto 0.000 0.0 - 0.012 X10*3/uL [facility] 01/10/2025 7:45 AM EST 01/10/2025 7:49 AM EST us Generic External Data Provider LAB BLOOD ORDERAB LES Final Result [facility] [address] [place] [phone] * (ABNORMAL) Comprehensive Metabolic Panel (01/10/2025 7:45 AM EST) Sodium 136 135 - 145 mmol/L [facility] Potassium 4.5 3.3 - 5.1 mmol/L [facility] Chloride 100 96 - 108 mmol/L [facility] Carbon Dioxide 29 22 - 29 mmol/L [facility] Anion Gap 12 12 - 20 [facility] Urea Nitrogen (BUN) 12 9 - 16 mg/dL [facility] Creatinine, Serum 0.86 0.5 - 1.4 mg/dL [facility] Creatinine Clr Calc Pharmacy 92.6 [facility] Comment:Provided height and weight: 154.94 cm,117.8 kg.eGFR (calculated from the MDRD study equation) and eCrCl(calculated from the Cockcroft-Gault equation) are based ondifferent parameters and may not yield comparable results.If eCrCl result is absurd, please check patient'sheight/weight. Estimated Glomerular Filt Rate >60 [facility] Comment:Chronic Kidney Disea se: Estimated GFR < 60 mL/min/1.74z3Xnoizn Kidney Disease: Estimated GFR < 15 mL/min/1.73m2 Glucose 466(HH) 60 - 115 mg/dL [facility] Comment:Critical value for G LUCOSE Results called to and read backby: KIA Person calling: NATALIA Date: 01/10/25Time:0812 Calcium 9.4 8.4 - 10.2 mg/dL [facility] Bilirubin, Total 0.3 0.0 - 1.0 mg/dL [facility] Aspartate Amino Transferase 52(H) 5 - 31 U/L [facility] Alanine Aminotransferase 74(H) 0 - 31 U/L [facility] Total Protein 7.8 6.5 - 8.0 g/dL [facility] Albumin Level 4.3 3.5 - 5.0 g/dL [facility] Alkaline Phosphatase 123(H) 39 - 117 U/L [facility] 01/10/2025 7:45 AM EST 01/10/2025 7:49 AM EST Generic External Data Provider LAB BLOOD ORDERAB LES Final Result Performing Organization Address City/State/[facility] Co de Phone Number [facility] [address] [place] [phone] * (ABNORMAL) POCT HGB A1C (04/05/2024 1:22 PM EDT) Hemoglobin A1C 12.4(A) 4.0 - 6.0 % QC Media Lot # [id number] Lot# Expiration Date Blood 04/05/2024 1:22 PM EDT us Tennille Crespo ANP POINT OF CARE TEST ENTER/EDIT OR DERABLES Final Result * BI Mammogram Screening Tomosynthesis Bilateral (05/07/2023 8:37 AM EDT) Anatomical Region Laterality Modality Breast Bilateral Mammography 05/07/2023 8:37 AM EDT Narrative 05/09/2023 12:12 PM EDT ? [facility] ? [address] ?[place] [address] ? Mammography Report ? Signed ? Patient: Haseeb,Mónica Aysha ?MR#: [id number] ?? [id number] ? : 1975 ?Acct:[id number] ? Age/Sex: 47 / F ?ADM Date: /24/23 ? Loc: HO.MAMMO ? Attending Dr: Tennille Crespo OIL PROSPECTING OBSERVER ? Ordering Physician: TENNILLE CRESPO NP ?Results: 1Negative ? Date of Service: 05/07/23 ?Follow Up: 1 Year From Orig ?? inal Mammogram ? Procedure(s): MM tomosynthesis screening BI ?? Accession Number(s): [id number] ? cc: TENNILLE CRESPO NP ? EXAMINATION: ?? MM SCREENING DIGITAL BREAST TOMOSYNTHESIS, BILATERAL ? CLINICAL INFORMATION: ? Screening. Asymptomatic. Age 47. No prior mammography. ? No known family history breast cancer. ??The lifetime risk of breast ?? cancer based on the Tyrer-Cuzick Model is 7%. ? COMPARISON: ?? None (current study represents initial baseline exam). ? TECHNIQUE: ?? Digital breast tomosynthesis is performed in both the craniocaudal and ?? mediolateral oblique views along with computer-aided detection (CAD). ?? Synthesized 2D images are generated from the tomosynthesis. ??Additional ?? bilateral CC and additional bilateral MLO views are provided. ? FINDINGS: ?? There are scattered areas of fibroglandular density (ACR BI-RADS breast ?? composition Category b). ? Breast tissue composition borders on predominantly fatty. Background ?? stromal markings are normal. No architectural abnormality. There are no ?? significant masses, abnormal calcifications, or other abnormalities. ? The axilla and skin contours are unremarkable. ? MM/MM tomosynthesis screening BI ?? IMPRESSION: ?? No mammographic evidence of malignancy. ? ASSESSMENT: ? BI-RADS 1: Negative ? RECOMMENDATION: ?? Routine annual mammography screening. ? This patient's information was entered into a reminder system with a ?? target due date for their next mammogram. ? Dictated By: ?Dawson Martin MD ? Signed By: ?<Electronically signed by Dawson Martin MD in OV> ?05/09/ 1209 ? DD/ 0837 ? TD/TT: ? Attendant Arcade: DURAN ? Procedure Note Donotuseinterpreter, Image - [facility] [address] [place] [address] Mammography Report Signed Patient: Mónica MembrenoMR#: [id number] : 1975Acct:[id number] Age/Sex: 47 / FADM Date: 05/07/23 Loc: HO.MAMMO Attending Dr: Tennille Crespo NP Ordering Physician: TENNILLE CRESPOesults: 1Negative Date of Service: 05/07/23Follow Up: 1 Year From Orig inal Mammogram Procedure(s): MM tomosynthesis screening BI Accession Number(s): [id number] cc: TENNILLE CRESPO NP EXAMINATION: MM SCREENING DIGITAL BREAST TOMOSYNTHESIS, BILATERAL CLINICAL INFORMATION: Screening. Asymptomatic. Age 47. No prior mammography. No known family history breast cancer. The lifetime risk of breast cancer based on the Tyrer-Cuzick Model is 7%. COMPARISON: None (current study represents initial baseline exam). TECHNIQUE: Digital breast tomosynthesis is performed in both the craniocaudal and mediolateral oblique views along with computer-aided detection (CAD). Synthesized 2D images are generated from the tomosynthesis. Additional bilateral CC and additional bilateral MLO views are provided. FINDINGS: There are scattered areas of fibroglandular density (ACR BI-RADS breast composition Category b). Breast tissue composition borders on predominantly fatty. Background stromal markings are normal. No architectural abnormality. There are no significant masses, abnormal calcifications, or other abnormalities. The axilla and skin contours are unremarkable. MM/MM tomosynthesis screening BI IMPRESSION: No mammographic evidence of malignancy. ASSESSMENT: BI-RADS 1: Negative RECOMMENDATION: Routine annual mammography screening. This patient's information was entered into a reminder system with a target due date for their next mammogram. Dictated By: Dawson Martin MD Signed By: <Electronically signed by Dawson Martin MD in OV> 05/09/23 1209 DD/ 0837 TD/TT: Attendant Arcade: [facility] External Provider IMG BI PROCEDURES Edited Result - Final * Hepatitis C Antibody with Reflex to HCV, RNA, Quantitative, Real-Time PCR (02/18/2023 8:22 AM EDT) Hepatitis C Antibody NON-REACT CECI NON-REACT CECI [facility] Index 0.04 <1.00 [facility] Comment: HCV antibody was non-reactive. There is no laboratory evidence of HCV infection. In most cases, no further action is required. However, if recent HCV exposure is suspected, a test for HCV RNA (test code 69372) is suggested. For additional information please refer to http://education.[employer]/faq/MJZ08v5 (This link is being provided for informational/ educational purposes only.) Blood Venous blood specimen / Unknown 02/18/2023 8:22 AM EDT 02/18/2023 8:23 AM EDT Narrative [facility] - 02/21/2023 10:16 AM EDT FASTING:YES FASTING: YES [facility] LAB BLOOD ORDERABLES Final Resul t [facility] [address] [facility], [place] [address] [facility] [address] [place] [phone] * HIV-1/2 Antigen and Antibodies, Fourth Generation, with Reflexes (02/18/2023 8:22 AM EDT) HIV Antigen/Antibody, 4th Generation NON-REAC TIVE NON-REAC TIVE [facility] Comment: HIV-1 antigen and HIV-1/HIV-2 antibodies were not detected. There is no laboratory evidence of HIV infection. PLEASE NOTE: This information has been disclosed to you from records whose confidentiality may be protected by state law. ??If your state requires such protection, then the state law prohibits you from making any further disclosure of the information without the specific written consent of the person to whom it pertains, or as otherwise permitted by law. A general authorization for the release of medical or other information is NOT sufficient for this purpose. ?? For additional information please refer to http://education.[employer]/faq/UOO083 (This link is being provided for informational/ educational purposes only.) The performance of this assay has not been clinically validated in patients less than 2 years old. Blood Venous blood specimen / Unknown 02/18/2023 8:22 AM EDT 02/18/2023 8:23 AM EDT Narrative [facility] - 02/21/2023 10:16 AM EDT FASTING:YES FASTING: YES [facility] LAB BLOOD ORDERABLES Final Resul t [facility] [address], [place] [address] [facility] [address] [place] [phone] * (ABNORMAL) Lipid Panel, Standard (02/18/2023 8:22 AM EDT) Pathologist [facility] Cholesterol, Total 173 <200 mg/dL [facility] HDL Cholesterol 41(L) > OR = 50 mg/dL [facility] Triglycerides 204(H) <150 mg/dL [facility] Comment: If a non-fasting specimen was collected, consider repeat triglyceride testing on a fasting specimen if clinically indicated. Neal et al. J. of Clin. Lipidol. 2015;9:129-169. LDL Cholesterol 100(H) mg/dL (calc) [facility] Comment: Reference range: <100 Desirable range <100 mg/dL for primary prevention; ?? <70 mg/dL for patients with CHD or diabetic patients with > or = 2 CHD risk factors. LDL-C is now calculated using the Clark calculation, which is a validated novel method providing better accuracy than the Friedewald equation in the estimation of LDL-C. Abilio SS et al. KHUSHI. 2013;310(19): 2498-0361 (http://education.[employer]/faq/RGO187) Chol/HDLC Ratio 4.2 <5.0 (calc) [facility]azz Non-HDL Cholesterol 132(H) <130 mg/dL (calc) [facility] Comment: For patients with diabetes plus 1 major ASCVD risk factor, treating to a non-HDL-C goal of <100 mg/dL (LDL-C of <70 mg/dL) is considered a therapeutic option. Blood Venous blood specimen / Unknown 02/18/2023 8:22 AM EDT 02/18/2023 8:23 AM EDT Narrative [facility] - 02/21/2023 10:16 AM EDT FASTING:YES FASTING: YES Tennille Crespo [facility] LAB BLOOD ORDERABLES Final Resul t [facility] [address], [place] [address] [facility] [address] [place] [address] * (ABNORMAL) ALBUMIN, RANDOM URINE W/CREATININE (01/18/2022 9:17 AM EST) Microalbumin Urine 3.9 See Note: mg/dL [facility] Comment: Reference Range: ?? Reference Range Not established Microalb/Creat Ratio 46(H) <30 mcg/mg [facility] Comment: ?? The ADA defines abnormalities in albumin excretion as follows: ?? Albuminuria Category ?Result (mcg/mg creatinine) ?? Normal to Mildly increased ?? <30 Moderately increased ? 30-299 ?? Severely increased ? > OR = 300 ?? The ADA recommends that at least two of three specimens collected within a 3-6 month period be abnormal before considering a patient to be within a diagnostic category. Creatinine, Urine 85 20 - 275 mg/dL [facility] 01/18/2022 9:17 AM EST us Tennille Crespo ANP LAB URINE ORDERABLES Final Resul t Performing Organization Address [facility] de Phone Number [facility] [address] [place] [address], * THINPREP PAP (09/18/2021 12:00 AM EDT) Clinical Information: None given [facility] COMMENT SEE COMMENT [facility] Comment: EXPLANATORY NOTE: ? The Pap is a screening test for cervical cancer. It is ?? not a diagnostic test and is subject to false negative ?? and false positive results. It is most reliable when a ?? satisfactory sample, regularly obtained, is submitted ?? with relevant clinical findings and history, and when ?? the Pap result is evaluated along with historic and ?? current clinical information. ?? Stagecraft Professor : SEE COMMENT [facility] Comment: TRACY NOLAND(ASCP) CT screening location: [address] ??[id number] Infection Shift in vaginal rolando suggestive of bacterial vaginosis. [facility] Interpretation/R esult: Negative for intraepithelial lesion or malignancy. [facility] LMP: NONE GIVEN [facility] Prev. BX: NONE [facility]IVEN [facility] Prev. PAP: NONE [facility]IVEN [facility] SOURCE: None given [facility] Statement Of Adequacy: SEE COMMENT [facility] Comment: Satisfactory for evaluation. Endocervical/transformation zone component absent. Age and/or menstrual status not provided 09/18/2021 us Tennille Crespo ANP LAB PATHOLOGY ORDERABLES Final R esult Performing Organization Address [facility] Co de Phone Number [facility] [address] [place], [place] [address] * HPV mRNA E6/E7 (09/18/2021 12:00 AM EDT) HPV nRNA E6/E7 Not Detected Not Detected [facility] Comment: Methodology: Brim Plater-Mediated Amplification This assay detects E6/E7 viral messenger RNA (mRNA) from 14 high-risk HPV types (16,18,31,33,35,39,45,51,52,56,58,59,66,68). ? The analytical performance characteristics of this assay have been determined by [employer]. The modifications have not been cleared or approved by the FDA. This assay has been validated pursuant to the CLIA regulations and is used for clinical purposes. ?? For additional information, please refer to http://education.[employer]/faq/UQF200a6 (This link if provided for information/ educational purposes only.) 09/18/2021 [facility] LAB BLOOD ORDERABLES Final Resul t [facility] [address] from Last 3 Months or Most Recently Relevant to Health Maintenance Insurance [facility] C3 HSN FULL Care Teams Milling Machine Operator Gear Relationship Specialty Start Date End Date Tennille Crespo ANP [address] [place] [id number] PCP - General Family Medicine 07/03/21
--- OUTSIDE RECORDS SUMMARY | 2025-01-10 08:49 | XMS_ITS | Encounter Summary ---
Author Organization [employer] Address [address] [place] [address] Care Team Providers Care Hatchery Attendant Name Role Phone Luis Manuel Sharmin ACE Primary Care Provider [phone] Reason for Visit * Reason Comments Med Refill Encounter Details Date Type Department Care Team ([facility] st Contact Info) Description 04/11/2023 Refill [facility] [address] [place] [address] [facility] [address] [place] [address] Social History Tobacco Use Types Packs/Day Years Used Date Smoking Tobacco: Never Smokeless Tobacco: Never Alcohol Use Standard Drinks/Week Comments Not Currently 0 (1 standard drink = 0.6 oz pur e alcohol) Depression Answer Date Recorded Patient Health Questionnaire-2 Score 0 03/25/2023 Comments Unknown Sex and Gender Information Value Date Recorded Sex Assigned at Female 05/31/2024 6:28 PM EDT Legal Sex Female 6:04 PM EDT Gender Identity Female 05/31/2024 6:28 PM EDT Sexual Orientation Choose not to disclose 2023 6:28 PM EDT COVID-19 Exposure Response Date Recorded In the last 10 days, have yo u been in contact with someone who was confirmed or suspected to have Coronavirus/COVID-19? No / Unsure 03/25/2023 9:08 AM EDT documented as of this encounter Plan of Treatment Not on file documented as of this encounter Visit Diagnoses Not on filedocumented in this encounter Care Teams Hatchery Attendant Relationship Specialty Start Date End Date Sharmin Issa ANP [address] [place] [id number] PCP - General Family Medicine 07/03/21 documented as of this encounter
[2025-01-10 09:13] LABS: Influenza A PCR NEGATIVE (Negative); Influenza B PCR NEGATIVE (Negative); Resp Syncy Virus RNA Qual PCR NEGATIVE (Negative); SARS COV2 PCR INHOUSE NEGATIVE (Negative)
[2025-01-10 10:42] LABS: Glucose, Whole Blood 422 mg/dL (60-115)
[2025-01-10 11:03] VITALS: BP 127/72; PULSE 80; RESP 18; TEMP 36.4; O2SAT 95
[2025-01-10 11:46] LABS: Glucose, Whole Blood 348 mg/dL (60-115)
[2025-01-10 13:30] VITALS: BP 130/73; PULSE 77; RESP 16; TEMP 37; O2SAT 95
[2025-01-10 13:32] LABS: Glucose, Whole Blood 254 mg/dL (60-115)
[2025-01-10 13:42] LABS: Appearance Urine Clear; Color Urine Yellow; Glucose Urine UA 500 mg/dL (Negative); Leukocyte Esterase Urine Negative (Negative); Nitrite Urine Negative (Negative); PH >= 9.0 (5.0-9.0); Specific Gravity - Urine >= 1.030 (1.005-1.025); UMIC TRIGGER UACC YES; Urine Blood Negative (Negative); Urine Ketones Negative (Negative); Urine Protein 30 (1+) mg/dL (Neg-Trace)
[2025-01-10 13:48] LABS: Bacteria Urine Trace (None Seen); Hyaline Casts Urine 0-2 /LPF (0-2); RBC Urine 0-2 /HPF (0-2); UACC Culture Trigger YES
--- NOTE | 2025-01-10 14:13 | MHC.CM.PN ---
CM consult: MD would like pt to have a follow up with PCP due to uncontrolled blood sugar. 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 This CM met with pt to discuss, she has spoken to her MD's office, they are arranging an appointment for her and will call her back with the details.
[2025-01-10 14:24] VITALS: BP 130/73; PULSE 77; RESP 16; TEMP 37; O2SAT 95
== END 2025-01-10 14:26 | disposition home or self-care (01) ==
PROVIDERS: Emergency Provider Emergency Medicine; PCP Nurse Practitioner Primary Care
DX: E11.65 Type 2 diabetes mellitus with hyperglycemia (principal); R42 Dizziness and giddiness; R11.2 Nausea with vomiting, unspecified; Z03.818 Encounter for observation for suspected exposure to other biological agents ruled out
CPT/HCPCS: 0241U; 80053; 81001; 82947; 85025; 87086; 93005; 96361; 96374; 99285; J2405

== ENCOUNTER → 2025-01-10 07:35 | Outpatient (BNV) | payer MEDICAID, SELFPAY | PROVIDERS: Emergency Provider Emergency Medicine; PCP Nurse Practitioner Primary Care; Visit Provider Internal Medicine Cardiovascular Disease | DX: R42 Dizziness and giddiness (principal) | CPT/HCPCS: 93010 ==

== ENCOUNTER 2025-06-28 14:44 | Outpatient (REF) | payer OTHER, SELFPAY ==
--- NOTE | ~2025-06-28 | MM_ITS ---
EXAMINATION: MM SCREENING DIGITAL BREAST TOMOSYNTHESIS, BILATERAL CLINICAL INFORMATION: Screening. Asymptomatic. COMPARISON: May 07, 2023 TECHNIQUE: Digital breast tomosynthesis is performed in both the craniocaudal and mediolateral oblique views along with computer-aided detection (CAD). FINDINGS: BREAST COMPOSITION: There are scattered areas of fibroglandular density (ACR BI-RADS breast composition Category b). BILATERAL BREASTS: No significant masses, suspicious calcifications or other abnormalities are seen in either breast. MM/MM tomosynthesis screening BI IMPRESSION: BILATERAL BREASTS: Negative, no mammographic evidence of malignancy. Normal interval follow-up is recommended in 12 months. ASSESSMENT: BI-RADS 1 - Negative RECOMMENDATION: Routine annual mammography screening. FOLLOW-UP: 1 year F/U This examination should not preclude the clinical evaluation of a suspicious palpable abnormality. This patient's information was entered into a reminder system with a target due date for their next mammogram. Electronically signed by: Blas Mancera MD 07/02/2025 03:41 PM EDT
--- OUTSIDE RECORDS SUMMARY | 2025-06-28 14:46 | XMS_ITS | Encounter Summary ---
Author Organization [employer] Address [address] [place] [address] Care Team Providers Care Wood Finisher Apprentice Name Role Phone Sharmin Issa MALKA Primary Care Provider [phone] Edwige Garcia RN Unavailable [phone] Reason for Visit * Reason Onset Date Comments error in waitlist 02/25/2025 Encounter Details Date Type Department Care Team ([facility] st Contact Info) Description 02/25/2025 Telephone [facility] [address] [place], [place] [phone] Viktor Urban DDS [address] [place], [place] [phone] error in waitlist Social History Tobacco Use Types Packs/Day Years [...] encounter Miscellaneous Notes * Telephone Encounter - Jie Oliva - 02/25/2025 11:01 AM EDT Patient was on wait list from 01/2024. Mistakenly deleted waitlist when scheduling emergency appt. Wait listed her again from 02/05/2024 date however it will show as waitlist added today. assistant front desk manager informed. documented in this encounter Plan of Treatment Upcoming Encounters Date Type Department Care Team (Late st Contact Info) Description 08/02/2025 2:15 PM EDT Office Visit [facility] [address] [place] [address] Sharmin Issa ANP [address] [place] [address] documented as of this encounter Visit Diagnoses Not on filedocumented in this encounter Additional Health Concerns Assessment Noted Time PHQ-9 Depression Total Score: 6 04/05/20 24 1:07 PM EDT documented as of this encounter Care Teams Wood Finisher Apprentice Relationship Specialty Start Date End Date Sharmin Issa ANP [address] [place] [address] PCP - General Family Medicine 07/03/21 Edwige Garcia RN [address] [place] [address] Outside Plant Supervisor Family Medicine 03/12/25 documented as of this encounter
--- OUTSIDE RECORDS SUMMARY | 2025-06-28 14:46 | XMS_ITS | Clinical Summary ---
Author Organization [facility] Address [address] [facility] [address] [place] [phone] Phone Care Team Providers Care Document Management Analyst Name Role Phone Myra Gonzalez MD Primary Care Provider [phone] Allergies No known active allergies Medications LISINOPRIL ORAL Acti ve amLODIPine (NORVASC) 5 MG tablet Take 1 tablet (5 mg total) by mouth daily. 30 tablet 07/30/2018 Active Social History Tobacco Use Types Packs/Day Years Used Date Smoking Tobacco: Never Smokeless Tobacco: Never Alcohol Use Standard Drinks/Week Comments No 0 (1 standard drink = 0.6 oz pur e alcohol) Education Answer Date Recorded Are you interested in more education? Not on vy e 03/11/2023 Are you concerned about learning? Not on file 03/11/2023 No 03/11/2023 No 03/11/2023 Digital Access Answer Date Recorded No 04/09/2023 No 04/09/2023 No 04/09/2023 Reliable internet access at home? Not on file 04/09/2023 Device with a working camera? Not on file Comments Unknown Sex and Gender Information Value Date Recorded Sex Assigned at Female 07/30/2018 8:18 AM EDT Legal Sex Female 8:06 AM EDT Gender Identity Female 07/30/2018 8:18 AM EDT Sexual Orientation Straight 07/30/2018 8: 18 AM EDT Last Filed Vital Signs Vital Sign Reading Time Taken Comments Blood Pressure 167/95 12/21/2018 4:28 PM EST Pulse 82 12/21/2018 4:28 PM EST Temperature 37.2 C (98.9 F) 12/21/2018 4:28 PM EST Respiratory Rate 20 12/21/2018 4:28 PM EST Oxygen Saturation 98% 12/21/2018 4:28 PM EST Inhaled Oxygen Concentration - - Weight 124.7 kg (275 lb) 12/21/2018 4:28 PM EST Height 160 cm (5' 3 ) 07/30/2018 8:19 AM EDT Body Mass Index 48.71 07/30/2018 8:19 AM EDT Plan of Treatment Health Maintenance Due Date Last Done Comments LIPID PANEL 1973 DEPRESSION SCREENING 1985 HEPATITIS C SCREENING 1991 HIV ONE-TIME SCREENING (18-6 5 YEARS) 1991 PAP SMEAR 1994 SMOKING STATUS SCREENING (On ce After 26 Yrs) 1999 MAMMOGRAM 2013 COLOGUARD 2018 COLONOSCOPY 2018 COLORECTAL CANCER SCREENING 2018 FIT TEST 2018 FOBT 2018 SIGMOIDOSCOPY 2018 VIRTUAL COLONOSCOPY 2018 CREATININE LEVEL 07/30/2019 07/30/2018 POTASSIUM LEVEL 07/30/2019 07/30/2018 PNEUMOCOCCAL VACCINES (50+ years) (2 of 2 - PCV) 2023 09/27/2019, 02/25/2017 ZOSTER VACCINES (1 of 2) 2023 COVID-19 VACCINE (3 - 2023-2 5 season) 2024 01/14/2022, 12/24/2021 Adult Td,Tdap Booster 09/27/2029 09/27/2019 HEPATITIS A VACCINES Aged Out No long er eligible based on patient's age to complete this topic HIB VACCINES Aged Out No longer eligi ble based on patient's age to complete this topic MENINGOCOCCAL VACCINES (ACWY) Aged Out No longer eligible based on patient's age to complete this topic MENINGOCOCCAL VACCINES (B) Aged Out N o longer eligible based on patient's age to complete this topic Medical Devices Not on file Procedures Procedure Name Priority Date/Time Associated Diagnosis Comments BASIC METABOLIC PANEL STAT 07/30/2018 8:38 AM EDT from Last 3 Months or Most Recently Relevant to Health Maintenance Results * (ABNORMAL) Basic metabolic panel (07/30/2018 8:38 AM EDT) SODIUM 138 133 - 146 mmol/L [facility] CHLORIDE 96 96 - 108 mmol/L [facility] POTASSIUM 3.6 3.3 - 5.1 mmol/L [facility] CO2 29 21 - 35 mmol/L [facility] BUN 7 6 - 19 mg/dL [facility] CREATININE 0.60 0.5 - 1.5 mg/dL [facility] GLUCOSE 275(H) 70 - 99 mg/dL [facility] CALCIUM 8.7 8.4 - 10.3 mg/dL [facility] EGFR 111 >59 mL/min/1.7 3m2 [facility] Comment:If patient is black, multiply result by 1.159. Estimated glomerular filtration rate calculated using the CKD-EPI equation. ANION GAP 17 10 - 20 mmol/L [facility] Blood 07/30/2018 8:38 AM EDT 07/30/2018 8:45 AM EDT us Chrissy Dalton PA-C LAB BLOOD ORDERABLES Shira patel Result [facility] [address] [place] [address] from Last 3 Months or Most Recently Relevant to Health Maintenance [facility] [place] [facility] Care Teams Document Management Analyst Relationship Specialty Start Date End Date Myra Gonzalez MD [address] [place] [address] PCP - General Internal Medicine 07/30/18 Additional Source Comments The information contained in this document represents components of the legal health record. It is not the complete legal health record.[facility]
== END 2025-06-28 14:45 | disposition home or self-care (01) ==
LOC: HO.MAMMO 14:44
PROVIDERS: PCP Nurse Practitioner Primary Care; Visit Provider Nurse Practitioner Primary Care
DX: Z12.31 Encounter for screening mammogram for malignant neoplasm of breast (principal)
CPT/HCPCS: 77063; 77067

== ENCOUNTER → 2025-06-28 15:15 | Outpatient (BNV) | payer OTHER, SELFPAY | PROVIDERS: PCP Nurse Practitioner Primary Care; Visit Provider Radiology Body Imaging | DX: Z12.31 Encounter for screening mammogram for malignant neoplasm of breast (principal) | CPT/HCPCS: 77063; 77067 ==

== ENCOUNTER 2025-11-04 16:24 | Observation (INO) | payer OTHER, SELFPAY ==
--- OUTSIDE RECORDS SUMMARY | 2025-10-31 14:00 | XMS_ITS | Encounter Summary ---
Author Organization [facility] Address [address] [place] [address] [address] [address] Care Team Providers Care Blow Mold Operator Name Role Phone Sharmin Issa Primary Care Provider [phone] Edwige Garcia RN Unavailable Reason for Referral * Consultation (Routine) - Authorized Specialty Diagnoses / Procedures Referred By Rhea hernandez Referred To Contact Pharmacy Diagnoses Uncontrolled type 2 diabetes mellitus with hyperglycemia (HCC) Sharmin Issa ANP [address] [place] [address] Phone: tel: fax: Referral ID Status Reason Start Date Expiration Date Visits Requested Visits Authorized [id number] Authorized Consult and Treat 10/31/2025 10/31/2026 6 6 * Medications - Closed Specialty Diagnoses / Procedures Referred By Rhea hernandez Referred To Contact Diagnoses Uncontrolled type 2 diabetes mellitus with hyperglycemia (HCC) Sharmin Issa ANP [address] [place] [address] Phone: tel: fax: Referral ID Status Reason Start Date Expiration Date Visits Re quested Visits Authorized [id number] Closed 1 1 * Medications - Closed Specialty Diagnoses / Procedures Referred By Rhea hernandez Referred To Contact Diagnoses Uncontrolled type 2 diabetes mellitus with hyperglycemia (HCC) Sharmin Issa ANP [address] [place] [address] Phone: tel: fax: Referral ID Status Reason Start Date Expiration Date Visits Re quested Visits Authorized [id number] Closed 1 1 * Imaging (Routine) - Authorized Specialty Diagnoses / Procedures Referred By Contac t Referred To Contact Radiology Diagnoses Uterine leiomyoma, unspecified location Procedures US Pelvis Transvaginal Sharmin Issa ANP [address] [place] [address] Phone: tel: fax: [address] [address] Phone: tel: fax: Referral ID Status Reason Start Date Expiration Date V isits Requested Visits Authorized [id number] Authorized 10/31/2025 10/31/2026 1 1 * Imaging (Routine) - Authorized Specialty Diagnoses / Procedures Referred By Contac t Referred To Contact Radiology Diagnoses Uterine leiomyoma, unspecified location Procedures Us Pelvis complete Sharmin Issa ANP [address] [place] [address] Phone: tel: fax: [address] [phone] Phone: tel: fax: Referral ID Status Reason Start Date Expiration Date V isits Requested Visits Authorized [id number] Authorized 10/31/2025 10/31/2026 1 1 Encounter Details Date Type Department Care Team (Latest Contact Info) Description 10/31/2025 2:00 PM EST Office Visit [facility] [address] [place] [address] Sharmin Issa ANP [address] [place] [address] Uncontrolled type 2 diabetes mellitus with hyperglycemia (HCC) (Primary Dx); Essential hypertension; Type 2 diabetes mellitus with hyperlipidemia (HCC); Obstructive sleep apnea syndrome; Uterine leiomyoma, unspecified location Social History Tobacco Use Types Packs/Day Years Used Date Smoking Tobacco: Never Smokeless Tobacco: Never Alcohol Use Standard Drinks/Week Comments Not Currently 0 (1 standard drink = 0.6 oz pur e alcohol) Depression Answer Date Recorded Patient Health Questionnaire-9 Score 0 05/10/2025 Patient Health Questionnaire-9 Score 0 05/10/2025 Last PHQ-9: Questionnaire Data Not on file 0 05/10/2025 Housing Stability Answer Date Recorded What is your housing situation today? I have merced morales 05/10/[address] you li ve. Do you have problems with any of the following? None of the above 05/10/2025 Food Insecurity Answer Date Recorded Within the past 12 months, y ou worried that your food would run out before you got money to buy more: Never True 05/10/2025 Within the past 12 months,th e food you bought just didn't last and you didn't have enough money to get more: Never True Transportation Answer Date Recorded In the past 12 months, has l ack of transportation kept you from medical appts, meetings, work or from getting things needed for daily living? No 05/10/2025 Utilities Answer Date Recorded In the past 12 months, has t he electric, gas, oil or water company threatened to shut off services in your home? No 05/10/2025 Depression Answer Date Recorded Patient Health Questionnaire-2 Score 0 05/10/2025 Internet Access Answer Date Recorded Internet Access Q1 Yes 05/10/2025 Internet Access Q2 Not on file 05/10/2025 Comments No Sex and Gender Information Value Date Recorded Sex Assigned at Female 05/31/2024 6:28 PM EDT Legal Sex Female 6:04 PM EDT Gender Identity Female 05/31/2024 6:28 PM EDT Sexual Orientation Choose not to disclose 2023 6:28 PM EDT documented as of this encounter Last Filed Vital Signs Vital Sign Reading Time Taken Comments Blood Pressure 158/84 10/31/2025 1:57 PM EST Pulse 80 10/31/2025 1:57 PM EST Temperature 36.5 C (97.7 F) 10/31/2025 1:57 PM EST Respiratory Rate 20 10/31/2025 1:57 PM EST Oxygen Saturation 96% 10/31/2025 1:57 PM EST Inhaled Oxygen Concentration - - Weight 128 kg (282 lb) 10/31/2025 1:57 PM EST Height 157.5 cm (5' 2 ) 10/31/2025 1:57 PM EST Body Mass Index 51.58 10/31/2025 1:57 PM EST documented in this encounter Progress Notes * MALKA Brewer - 10/31/2025 2:00 PM EST SUBJECTIVE: Mónica Moran is a 49 y.o. year old female who presents for chronic disease management. Denies recent illness, injury, or hospitalization. PMH has a past medical history of Asthma, Diabetes mellitus (HCC), Fatty (change of) liver, not elsewhere classified, Fatty (change of) liver, not elsewhere classified, Hypertension, Obstructive sleep apnea syndrome (02/13/2023), and Swollen ankles. Acute Concerns: Hypertension BP above goal here (goal < 120/80) A1c remains elevated despite taking ozempic 1mg weekly as recommended, metformin, and tresiba. Has not refilled CGM. Medication fill history suggests non-adherence to amlodipine. Amlodipine 10 mg Tresiba Metformin 1000 mg CGM filled 03/2025 Lisinopril HCTZ up-to-date Ozempic appears up-to-date Diabetes Mellitus - Reports high stress impacting diabetes management - Gap in medication refills between June and September 2025 due to insurance changes and prescription delays - Under-dosed Tresiba during periods without insurance and while awaiting prior authorization - Describes weird sensation all over body when under-dosing or missing doses - Prefers fewer injections, dislikes daily injections - States compliance with Ozempic weekly and Tresiba daily when available - Had continuous glucose monitor previously, reports device occasionally falling off before scheduled replacement - Expresses preference for continuous glucose monitor over finger sticks Menopause and Hormonal Symptoms - No menstrual period for over one year - Reports longstanding facial hair growth - History of irregular periods - Family history of irregular periods - Inquires about hormone testing and possible PCOS - did have abdominal and pelvic CT 02/2024 that showed probable uterine fibroid - Reports being told of urine crystals, concerned about possible kidney stones - No kidney stones found on CT at that time. Will check TV and pelvic US. Misc - Recent increased stress due to multiple deaths among people cared for and family members Non-smoker Lab Results Component Value Date HGBA1C 8.2 (A) 10/31/2025 HGBA1C 8.0 (A) 08/02/2025 HGBA1C 7.7 (A) 05/10/2025 HGBA1C 11.4 (A) 01/16/2025 Social History Social History Narrative Not on file Problem List[1] Surgical History[2] Family History[3] Review of Systems Constitutional: Negative for chills and fever. HENT: Negative for sore throat. Respiratory: Negative for cough and shortness of breath. Cardiovascular: Negative for chest pain. Gastrointestinal: Negative for constipation and diarrhea. Endocrine: Negative for polydipsia, polyphagia and polyuria. Genitourinary: Negative for dysuria. Skin: Negative for rash. Psychiatric/Behavioral: Stress OBJECTIVE: Vitals: 10/31/25 1357 BP: (!) 158/84 BP Location: Right arm Patient Position: Sitting BP Cuff Size: Large adult Pulse: 80 Resp: 20 Temp: 97.7 ??F (36.5 ??C) TempSrc: Temporal SpO2: 96% Weight: 282 lb (128 kg) Height: 5' 2 (1.575 m) Physical Exam Constitutional: General: She is not in acute distress. Appearance: Normal appearance. She is obese. She is not ill-appearing. HENT: Head: Normocephalic and atraumatic. Eyes: General: No scleral icterus. Extraocular Movements: Extraocular movements intact. Pupils: Pupils are equal, round, and reactive to light. Cardiovascular: Rate and Rhythm: Normal rate and regular rhythm. Pulmonary: Effort: Pulmonary effort is normal. No accessory muscle usage or respiratory distress. Neurological: Mental Status: She is alert and oriented to person, place, and time. Psychiatric: Mood and Affect: Mood normal. Behavior: Behavior normal. ASSESSMENT/PLAN Diagnoses and all orders for this visit: Uncontrolled type 2 diabetes mellitus with hyperglycemia (HCC) (Primary) A1c remains above goal < 7 despite reported med compliance. Recommend regimen intensification with switch from semaglutide to tirzepatide. Pt also has h/o JANICE and would benefit from additional wt loss should this occur. She would cont to benefit from CGM. Recommended to refill. Cont metformin 1g BID Tresiba 14 units daily START Mounjaro 5mg CDTM referral Foot exam at follow-up - Continuous Glucose Sensor (FreeStyle Rohini 3 Plus Sensor) misc; 1 each every 15 days. Apply 1 every 15 days as directed for CGM - Tirzepatide 5 MG/0.5ML solution auto-injector; Inject 5 mg under the skin 1 (one) time per week. Essential hypertension BP above goal </= 120/80. Re-start amlodipine 10mg. Cont lisinopril-HCTZ as Rx'd Continue to encourage low salt diet, regular exercise, home BP monitoring, compliance with medications. Call clinic if BP is frequently >150/90 Go to ED/call 911 if > 170/100 and having sx such as JEWELL, visual changes, chest pain, SOB Last renal function: Lab Results Component Value Date GLUCOSE 254 (H) 01/10/2025 NA 136 01/10/2025 K 4.5 01/10/2025 CO2 29 01/10/2025 CL 100 01/10/2025 BUN 12 01/10/2025 CREATININE 0.86 01/10/2025 EGFR >60 01/10/2025 Lab Results Component Value Date MICROALBCREA 46 (H) 01/18/2022 No results found for: MICROALBCREU - amLODIPine (Norvasc) 10 MG tablet; Take 1 tablet (10 mg) by mouth in the morning. Type 2 diabetes mellitus with hyperlipidemia (HCC) - POCT Glucose - POCT Hgb A1c Obstructive sleep apnea syndrome As above Uterine leiomyoma, unspecified location Evaluation with US - Us Pelvis complete; Future - US Pelvis Transvaginal; Future This note was drafted using Ambient (AI) technology. The patient/patient's guardian has been informed and has consented to the use of this technology: Yes Based on our discussion, I have outlined the following instructions for you: - Try to get insurance approval for Mounjaro and switch to it if approved. If it is not approved, will recommend max out semaglutide however this pt would benefit from more potent agent. - Refill your Tresiba prescription. - Refill your continuous glucose monitor and use adhesive stickers to help it stay on better. - Use the pharmacy at the clinic for all your prescriptions. - Refill your amlodipine prescription at your current dose. - Check your blood pressure at home regularly. - Meet with pharmacist Alvina for help with your diabetes and medications. - A pelvic and transvaginal ultrasound will be ordered for you for further evaluation. Next appointment(s): - Appointment with Alvina clinical pharmacist (room across the garcia) - Hospital to schedule abdominal and transvaginal ultrasound Follow Up: 3 mo, sooner w/ CDTM Medications Ordered Prior to Encounter[4] Namibian Translation: Patient is bilingual and declines translation services [1] Patient Active Problem List Diagnosis Essential hypertension Moderate persistent asthma without complication Type 2 diabetes mellitus with hyperlipidemia (HCC) Screening for colorectal cancer Screening mammogram for breast cancer Encounter for preventive health examination Tinea pedis of both feet Uncontrolled type 2 diabetes mellitus with hyperglycemia (HCC) [2] History reviewed. No pertinent surgical history. [3] No family history on file. [4] Current Outpatient Medications on File Prior to Visit Medication Sig Dispense Refill atorvastatin (Lipitor) 10 MG tablet TAKE 1 TABLET BY MOUTH at bedtime 90 tablet 3 Blood Glucose Monitoring Suppl (Blood Glucose Monitor System) w/Device kit 1 each 3 times daily. 1 kit 0 cetirizine (ZyrTEC) 10 MG tablet TAKE 1 TABLET BY MOUTH ONCE EVERY MORNING NEEDED FOR ALLERGIES 90 tablet 1 cholecalciferol VITAMIN D (Vitamin D-3) 50 MCG (2000 UT) capsule TAKE 1 CAPSULE(50 MCG) BY MOUTH INTHE MORNING 90 capsule 1 Continuous Glucose Rope Laying Machine Operator (FreeStyle Rohini 3 [place]) device 1 each Once per day. Use as directed for CGM 1 each 0 Fluticasone-Salmeterol (Advair Diskus) 500-50 MCG/ACT aerosol powder Inhale 1 Inhalation 2 times daily. 180 each 3 glucose blood (FreeStyle Precision Laith Test) test strip Use to test blood sugar 4 times daily in case of CGM failure or extremes of BG 100 each 11 glucose blood test strip Use as needed TID 100 each 12 glucose-vitamin C 4-6 GM-MG oral gel Take 4 tablets by oral route if blood glucose is under 60. Wait 15 min, recheck blood glucose, if under 70 take 4 tabs again. Lancet Devices (Lancing Device) misc Use with lancets 1 each 0 Lancets Ultra Thin 30G misc Use 1 each TID and more as needed 100 each 11 lisinopril-hydroCHLOROthiazide 20-12.5 MG tablet TAKE 1 TABLET BY MOUTH EVERY MORNING 90 tablet 1 metFORMIN (Glucophage) 1000 MG tablet TAKE 1 TABLET BY MOUTH TWICE DAILY WITH THE MORNING AND EVENING MEAL 180 tablet 1 montelukast (Singulair) 10 MG tablet TAKE 1 TABLET BY MOUTH EVERY EVENING 90 tablet 1 pen needle 33G x 4 mm misc Use as instructed 100 each 12 Tresiba FlexTouch 100 UNIT/ML injection INJECT 14 UNITS SUBCUTANEOUSLY DAILY 15 mL 11 Ventolin HFA 108 (90 Base) MCG/ACT inhaler INHALE 2 PUFFS BY MOUTH EVERY 6 HOURS NEEDED FOR WHEEZING 18 g 1 [DISCONTINUED] amLODIPine (Norvasc) 10 MG tablet TAKE 1 TABLET(10 MG) BY MOUTH IN THE MORNING 90 tablet 1 [DISCONTINUED] Continuous Glucose Sensor (FreeStyle Rohini 3 Plus Sensor) misc 1 each every 15 days.Apply 1 every 15 days as directed for CGM 2 each 11 [DISCONTINUED] semaglutide (Ozempic) 2 MG/1.5ML solution pen-injector Inject 1 mg under the skin 1 (one) time per week. 2 each 12 No current facility-administered medications on file prior to visit. documented in this encounter Plan of Treatment Upcoming Encounters Date Type Department Care Team (Late st Contact Info) Description 11/22/2025 4:00 PM EST Medication Management [facility] [address] [place] [phone] Alvina Pickard, PharmD [address] [place] [phone] 01/28/2026 1:15 PM EDT Office Visit [facility] [address] [place] [phone] Sharmin Issa ANP [address] [place] [phone] Scheduled Orders Name Type Priority Associated Diagnoses Orde r Schedule Us Pelvis complete Imaging Routine Uterine leiomyoma, unspecified location Expected: 10/31/2025, Expires: 10/31/2026 US Pelvis Transvaginal Imaging Routine Uterine leiomyoma, unspecified location Expected: 10/31/2025, Expires: 10/31/2026 Scheduled Referrals Name Type Priority Associated Diagnoses Orde r Schedule Referral to Pharmacy CDTM Outpatient Referral Routine Uncontrolled type 2 diabetes mellitus with hyperglycemia (HCC) Ordered: 10/31/2025 documented as of this encounter Goals Goal Patient Goal Type Associated Problems Recent Progress Patient-Stated? Author Help patients manage their type 2 diabetes Care Plan Help patients manage their type 2 diabetes No Khalida Dawkins Weekly blood pressure task Care Plan Weekly blood pressure task No Khalida Dawkins Help patients manage their type 2 diabetes Care Plan Help patients manage their type 2 diabetes No Khalida Dawkins Patient has chronic kidney disease Care Plan Patient has chronic kidney disease No Khalida Dawkins Weekly blood pressure task Care Plan Weekly blood pressure task No Khalida Dawkins Patient has chronic kidney disease Care Plan Patient has chronic kidney disease No Khalida Dawkins Weekly blood pressure task Care Plan Weekly blood pressure task No Rajani Horner MA Weekly blood pressure task Care Plan Weekly blood pressure task No Rajani Horner [place] Patient has chronic kidney disease Care Plan Patient has chronic kidney disease No Rajani Horner [place] Patient has chronic kidney disease Care Plan Patient has chronic kidney disease No Rajani Horner MA Weekly blood pressure task Care Plan Weekly blood pressure task No Rajani Horner MA Weekly blood pressure task Care Plan Weekly blood pressure task No HornerRajani [place] Patient has chronic kidney disease Care Plan Patient has chronic kidney disease No Rajani Horner [place] Patient has chronic kidney disease Care Plan Patient has chronic kidney disease No Rajani Horner MA documented as of this encounter Procedures Procedure Name Priority Date/Time Associated Diagnosis Comments POCT GLYCATED HEMOGLOBIN, TOTAL Routine 10/31/2025 2:00 PM EST Type 2 diabetes mellitus with hyperlipidemia (HCC) POCT GLUCOSE ([id number]) Routine 10/31/2025 1:58 PM EST Type 2 diabetes mellitus with hyperlipidemia (HCC) documented in this encounter Results * (ABNORMAL) POCT Hgb A1c (10/31/2025 2:00 PM EST) Hemoglobin A1C 8.2(A) 4.0 - 5.7 % QC Media Lot # [id number] Lot# Expiration Date Blood 10/31/2025 2:00 PM EST Result Carlotta ACE POINT OF CARE TEST ENTER/EDIT OR DERABLES Final Result * POCT Glucose (10/31/2025 1:58 PM EST) Glucose Blood, POC 108 60 - 200 mg/dL QC Media Lot # [id number] Lot# Expiration Date Blood Capillary blood specimen / Unknown 10/31/2025 1:58 PM EST Result Carlotta ACE POINT OF CARE TEST ENTER/EDIT OR DERABLES Final Result documented in this encounter Visit Diagnoses Diagnosis Uncontrolled type 2 diabetes mellitus with hyperglycemia (HCC)- Primary Essential hypertension Unspecified essential hypertension Type 2 diabetes mellitus with hyperlipidemia (HCC) Obstructive sleep apnea syndrome Obstructive sleep apnea (adult) (pediatric) Uterine leiomyoma, unspecified location documented in this encounter Additional Health Concerns Active Problems Noted Date Diagnosed Date Help patients manage their type 2 diabetes 10/18 Weekly blood pressure task 10/18/2025 Help patients manage their type 2 diabetes 10/18 Patient has chronic kidney disease 10/18/2025 Weekly blood pressure task 10/18/2025 Patient has chronic kidney disease 10/18/2025 Weekly blood pressure task 10/29/2025 Weekly blood pressure task 10/29/2025 Patient has chronic kidney disease 10/29/2025 Patient has chronic kidney disease 10/29/2025 Weekly blood pressure task 10/29/2025 Weekly blood pressure task 10/29/2025 Patient has chronic kidney disease 10/29/2025 Patient has chronic kidney disease 10/29/2025 Assessment Noted Time PHQ-9 Depression Total Score: 0 05/10/20 25 4:10 PM EDT documented as of this encounter Care Teams Blow Mold Operator Relationship Specialty Start Date End Date Sharmin Issa ANP [address] [place] [phone] PCP - General Family Medicine 07/03/21 Edwige Garcia RN [address] [place] [address] Triple Valve Tester Family Medicine 03/12/25 documented as of this encounter
--- NOTE | ~2025-11-04 | MR_ITS ---
EXAMINATION: MR BRAIN WITHOUT CONTRAST CLINICAL INFORMATION: Diplopia COMPARISON: CT brain 11/04/2025 TECHNIQUE: MRI of the brain was obtained using routine sequences without contrast. FINDINGS: There is no restricted diffusion seen to suspect any acute ischemia. No magnetic susceptibility artifact visualized to suspect acute or chronic hemorrhagic products. Several punctate focal T2 FLAIR signal abnormalities seen in the deep white matter of bilateral frontal lobes without mass effect or edema. There best visualized on the sagittal T2 FLAIR sequences. No abnormality seen in the occipital lobes. The lateral ventricles are symmetrical in size and configuration without enlargement. There is normal flow-void signal in major cerebral vasculature. The cervical-medullary junction appears normal. The cervical medullary junction is normal. No abnormality seen in the posterior fossa. Is mild mucoperiosteal thickening and bilateral maxillary sinuses. The ethmoid, frontal and sphenoid sinuses and mastoid air cells are well-aerated. The calvarial bone marrow signal and the scalp soft tissues are normal. Bilateral optic globes, optic nerve and the periorbital soft tissues are normal. MR/MR head/brain wo con IMPRESSION: Bilateral chronic maxillary sinus inflammatory changes otherwise unremarkable MRI brain without contrast. Electronically signed by: Yovani Kumar MD 11/05/2025 11:31 AM EST
--- NOTE | ~2025-11-04 | CT_ITS ---
EXAMINATION: CTA NECK WITH CONTRAST (STROKE) CTA BRAIN WITH CONTRAST (STROKE) CLINICAL INFORMATION: Diplopia, TIA workup, recent hypertensive headache COMPARISON: CT head from yesterday and MRI brain from one hour ago TECHNIQUE: CTA of the head and neck was performed in the axial plane from the mediastinum to the skull vertex using 70 mL Omnipaque 350 intravenous contrast. Additional reformatted multiplanar images including maximum intensity projection MIP images are generated on the CT workstation. This CT examination was performed using dose optimization techniques as appropriate, variously including the following: *Automated exposure control *Adjustment of mA and/or kV according to patient size (this includes techniques or standardized protocols for targeted exams where dose is matched to indication/reason for exam; i.e. extremities or head) *Use of iterative reconstruction technique FINDINGS: NECK CTA: -AORTIC ARCH: Normal in caliber. Three-vessel branching pattern. -GREAT VESSEL ORIGINS: Widely patent. No stenosis. -RIGHT COMMON CAROTID ARTERY: Normal in course and caliber to the level of the bifurcation. -CERVICAL RIGHT INTERNAL CAROTID ARTERY: Normal opacification without focal stenosis or occlusion. -LEFT COMMON CAROTID ARTERY: Normal in course and caliber to the level of the bifurcation. -CERVICAL LEFT INTERNAL CAROTID ARTERY: Mild calcific atherosclerotic disease of the carotid bulb and proximal internal carotid artery without significant stenosis. -CERVICAL RIGHT VERTEBRAL ARTERY: Dominant. Normal in course and caliber into the skull base. -CERVICAL LEFT VERTEBRAL ARTERY: Small. Normal in course into the skull base. OTHER, SOFT TISSUES: -No lymphadenopathy or mass. No abnormal fluid collection or soft tissue swelling. -Normal thyroid. -Imaged superior mediastinal structures normal. -Imaged lung apices clear. CTA OF THE BRAIN: -INTRACRANIAL INTERNAL CAROTID ARTERIES: No focal stenosis or occlusion. Mild atherosclerotic desiccation in the carotid siphon. -RIGHT ANTERIOR CEREBRAL ARTERY: Normal A1 segment.. Normal arborization of the distal segments. -LEFT ANTERIOR CEREBRAL ARTERY: Normal A1 segment.. Normal arborization of the distal segments. -ANTERIOR COMMUNICATING ARTERY: Normal. -RIGHT MIDDLE CEREBRAL ARTERY: Normal M1 segment of the MCA without focal stenosis or occlusion. Normal bifurcation. Normal arborization of the distal segments. -LEFT MIDDLE CEREBRAL ARTERY: Normal M1 segment of the MCA without focal stenosis or occlusion. Normal bifurcation. Normal arborization of the distal segments. -RIGHT VERTEBRAL ARTERY V4: Normal in course and caliber. Normal PICA branch. -LEFT VERTEBRAL ARTERY V4: Small and very tapered distally. -BASILAR ARTERY: Normal without focal stenosis or occlusion. Normal appearance of the proximal superior cerebellar arteries. Normal basilar tip. -RIGHT POSTERIOR CEREBRAL ARTERY: Normal P1 segment. Normal opacification of the distal MIDDLE SCHOOL VOLLEYBALL [employer]ACH segments. -LEFT POSTERIOR CEREBRAL ARTERY: Normal P1 segment. Normal opacification of the distal MIDDLE SCHOOL V[employer]LEY[employer]ACH segments. -POSTERIOR COMMUNICATING ARTERIES: Not well demonstrated. Normal opacification of the superior sagittal, straight, transverse, and sigmoid sinuses. No venous thrombosis. No space-occupying hemorrhage or definite evolving infarct. CT/CT angio head neck STROKE IMPRESSION: CTA NECK: No hemodynamically significant stenosis CTA HEAD: No hemodynamically significant stenosis Electronically signed by: Jann Fang MD 11/05/2025 12:11 PM EST
--- NOTE | ~2025-11-04 | CT_ITS ---
CLINICAL HISTORY: htn headche CT head without contrast Comparison: None provided Findings: No intra-axial mass, midline shift, hydrocephalus, or acute hemorrhage. No significant atrophy-like change or white matter disease. There is no sinus or mastoid fluid. The orbits are unremarkable. There is no acute fracture. IMPRESSION: 1. No acute intracranial findings. This document has been electronically signed by: Trae Jolly MD on 11/04/2025 19:07:15
--- NOTE | ~2025-11-04 | US_ITS ---
CLINICAL HISTORY: Renal artery stenosis r o given HTN urgency US Renal with Doppler Comparison: None provided Findings: Right kidney normal size and echotexture, 13 cm length. No hydronephrosis. Normal color Doppler. Peak systolic velocity of 115 cm/sec in the upper pole, 50.6 cm/sec in the midpole, and 69.3 cm/sec in the lower pole. The renal vein is patent. The renal artery peak systolic velocity: 150 cm/sec proximally 190 cm/sec in the midportion (elevated and indicates <60% stenosis) 114 cm/sec in the distal portion. Left kidney normal size and echotexture, 12.7 cm length. No hydronephrosis. Normal color Doppler. Peak systolic velocity of 45.9 cm/sec in the upper pole, 41.0 cm/sec in the midpole, and 31.8 cm/sec in the lower pole. The renal vein is patent. The renal artery peak systolic velocity: 124 cm/sec in the proximal portion 126 cm/sec in the midportion 130 cm/sec distally. IMPRESSION: Minimally elevated peak systolic velocity of the mid right renal artery suggests less than 60% stenosis. The remainder of the peak systolic velocities are within normal limits. The resistive indices are within normal limits. This document has been electronically signed by: Ana Rosa Ty MD on 11/05/2025 20:05:33
--- OUTSIDE RECORDS SUMMARY | 2025-11-04 15:00 | XMS_ITS | Encounter Summary ---
Author Organization [employer] Address [address] [facility] [address] [place] [address] Care Team Providers Care Rn First Assistant Name Role Phone Sharmin Issa Primary Care Provider [phone] Edwige Garcia RN Unavailable [phone] Encounter Details Date Type Department Care Team (Latest Contact Info) Description 11/04/2025 3:00 PM EST Office Visit [facility] [address], [place] [id number] Negar Porter MD [address] [place], [place] [phone] Hypertension, unspecified type (Primary Dx); Uncontrolled type 2 diabetes mellitus with hyperglycemia (HCC); Diplopia Social History Tobacco Use Types Packs/Day Years [...] Sign Reading Time Taken Comments Blood Pressure 160/90 11/04/2025 3:16 PM EST Pulse 88 11/04/2025 3:16 PM EST Temperature 36 C (96.8 F) 11/04/2025 3:16 PM EST Respiratory Rate 22 11/04/2025 3:16 PM EST Oxygen Saturation 99% 11/04/2025 3:16 PM EST Inhaled Oxygen Concentration - - Weight 128 kg (282 lb) 11/04/2025 3:16 PM EST Height 157.5 cm (5' 2 ) 11/04/2025 3:16 PM EST Body Mass Index 51.58 11/04/2025 3:16 PM EST documented in this encounter Progress Notes * Negar Porter MD - 11/04/2025 3:00 PM EST Subjective Mónica Moran is a 49 y.o. female who has diabetes mellitus type 2, hypertension, obesity, and asthma, and patient presents for sick visit. Background: Problem List[1] Seen by PCP last week, on 10/31/2025. A1C 8.2%. BP 158/84. Plan to switch Semaglutide to Tirzepatide once she completes current semaglutide supply. Continue Tresiba at 14 units daily and metformin 1 g bid. 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 Continue current antihypertensives, lisinopril-hctz 20-12.5 mg daily and amlodipine 10 mg daily. Today: Triage note is documented as following: [facility] c/o headaches, dizziness, blurry and double vision. Bilateral hand edema Symptoms have been present for days. Symptoms are constant. Denies any chest pain or SOB. VS as follows (if applicable): Temp 97.1 by forehead thermometer HR 89 regular rate and rhythm Resp 18 none BP 182/100 left Arm; Device: Manual Cuff 180/88 right arm, Manual cuff Size: large O2 sat 98 % on room air Pain level: 0, Lung sounds (if applicable) Clear to auscultation bilaterally, Location: throughout During the visit: Reports experiencing dizziness, headaches, and blurry vision over the weekend, with symptoms persisting into the morning of this encounter. Noted that blood pressure was elevated during her scheduledappointment with PCP last week and remains high today. Has been experiencing intermittent headachesand dizziness, which have been accompanied by blurry vision. Last visited an eye doctor approximately a year ago. Mentions that she has not checked her blood sugar recently and does not have a glucometer or blood pressure machine at home. Reported that after a blood draw last week, she experienced pain, numbness, and inflammation at the site, which was unusual for her. Denies feeling swollen. Has recently changed her medication from Ozempic to Mounjaro and is currently using 14 units of Tresiba. Expressed concern about her symptoms, particularly the combination of headache, dizziness, and double vision, and noted that her diet has changed, with a reduction in salty foods. Denies chest pain. Review of Systems Constitutional: Positive for activity change. Negative for appetite change and fever. Eyes: Positive for visual disturbance. Respiratory: Negative for shortness of breath. Cardiovascular: Negative for chest pain and palpitations. Neurological: Positive for dizziness and headaches. Objective Vitals: 11/04/25 1516 BP: (!) 160/90 Pulse: 88 Resp: 22 Temp: 96.8 ??F (36 ??C) TempSrc: Temporal SpO2: 99% Weight: 282 lb (128 kg) Height: 5' 2 (1.575 m) Physical Exam Constitutional: General: She is not in acute distress. Appearance: Normal appearance. She is not ill-appearing. HENT: Head: Normocephalic and atraumatic. Mouth/Throat: Mouth: Mucous membranes are moist. Eyes: Extraocular Movements: Extraocular movements intact. Pupils: Pupils are equal, round, and reactive to light. Cardiovascular: Rate and Rhythm: Normal rate and regular rhythm. Heart sounds: No murmur heard. Pulmonary: Effort: Pulmonary effort is normal. No respiratory distress. Breath sounds: Normal breath sounds. No wheezing or rhonchi. Skin: General: Skin is warm. Neurological: Mental Status: She is alert. Mental status is at baseline. Cranial Nerves: No cranial nerve deficit. Motor: No weakness. Gait: Gait normal. Psychiatric: Mood and Affect: Mood normal. Results: Lab Results Component Value Date NA 136 01/10/2025 K 4.5 01/10/2025 CL 100 01/10/2025 CO2 29 01/10/2025 BUN 12 01/10/2025 CREATININE 0.86 01/10/2025 CRCLCALCPH 92.6 01/10/2025 EGFR >60 01/10/2025 GLUCOSE 100 11/04/2025 TOTALBILIRUB 0.3 01/10/2025 AST 52 (H) 01/10/2025 ALT 74 (H) 01/10/2025 TOTPROTEIN 7.8 01/10/2025 ALB 4.3 01/10/2025 ALP 123 (H) 01/10/2025 Lab Results Component Value Date TRIG 204 (H) 02/18/2023 Lab Results Component Value Date HGBA1C 8.2 (A) 10/31/2025 MICROALBUR 3.9 01/18/2022 CREATUR 85 01/18/2022 Lab Results Component Value Date WBC 8.5 11/04/2025 HGB 14.1 11/04/2025 HCT 42.4 11/04/2025 PLT 282 11/04/2025 MCV 84.3 11/04/2025 The 10-year ASCVD risk score (Maddie GALLARDO, et al., 2019) is: 6.4% Values used to calculate the score: Age: 49 years Clinically relevant sex: Female Is Non- : No Diabetic: Yes Tobacco smoker: No Systolic Blood Pressure: 160 mmHg Is BP treated: Yes HDL Cholesterol: 41 mg/dL Total Cholesterol: 173 mg/dL FIB-4 Calculation: 1.23 at 01/10/2025 7:45 AM Calculated from: SGOT/AST: 52 U/L at 01/10/2025 7:45 AM SGPT/ALT: 74 U/L at 01/10/2025 7:45 AM Platelets: 250 X10*3/uL at 01/10/2025 7:45 AM Hypertension, unspecified type: - Hypertension is currently not well controlled, with a blood pressure reading of 160/84. - Consider increasing lisinopril dosage from 1 tablet to 2 tablets daily. We discussed about getting her lab done prior to increasing her medication dose. However, patient was sent to emergency department for further evaluation due to hypertension and associated symptoms. Uncontrolled type 2 diabetes mellitus with hyperglycemia: - Diabetes is uncontrolled, with recent A1c of 8.2%. Normoglycemic today. - Continue current diabetes management with Tresiba, metformin, and Mounjaro (starting soon). Monitor blood glucose levels closely. Patient sent to emergency department for further evaluation due to associated symptoms. Headache, dizziness, and blurry vision: - Symptoms may be related to uncontrolled hypertension and diabetes. Differential diagnosis includes potential stroke. - Patient sent to emergency department for immediate evaluation to rule out stroke or other seriousconditions. Eye examination recommended due to blurry vision and diabetes. Assessment/Plan Problem List Items Addressed This Visit Uncontrolled type 2 diabetes mellitus with hyperglycemia (HCC) Other Visit Diagnoses Hypertension, unspecified type - Primary Diplopia Allergies[2] Current Outpatient Medications Medication Instructions amLODIPine (NORVASC) 10 mg, Oral, Every morning atorvastatin (Lipitor) 10 MG tablet TAKE 1 TABLET BY MOUTH at bedtime Blood Glucose Monitoring Suppl (Blood Glucose Monitor System) w/Device kit 1 each, Does not apply, 3 times daily cetirizine (ZyrTEC) 10 MG tablet TAKE 1 TABLET BY MOUTH ONCE EVERY MORNING NEEDED FOR ALLERGIES cholecalciferol VITAMIN D (Vitamin D-3) 50 MCG (2000 UT) capsule TAKE 1 CAPSULE(50 MCG) BY MOUTH INTHE MORNING Continuous Glucose Vp [employer] (FreeStyle Rohini 3 [place]) device 1 each, Does not apply, Daily, Use asdirected for CGM Continuous Glucose Sensor (FreeStyle Rohini 3 Plus Sensor) misc 1 each, Does not apply, Every 15 days, Apply 1 every 15 days as directed for CGM Fluticasone-Salmeterol (Advair Diskus) 500-50 MCG/ACT aerosol powder 1 Inhalation, Inhalation, 2 times daily glucose blood (FreeStyle Precision Laith Test) test strip Use to test blood sugar 4 times daily in case of CGM failure or extremes of BG glucose blood test strip Use as needed TID glucose-vitamin C 4-6 GM-MG oral gel Take 4 tablets by oral route if blood glucose is under 60. Wait 15 min, recheck blood glucose, if under 70 take 4 tabs again. Lancet Devices (Lancing Device) misc Use with lancets Lancets Ultra Thin 30G misc Use 1 each TID and more as needed lisinopril-hydroCHLOROthiazide 20-12.5 MG tablet 1 tablet, Oral, Every morning metFORMIN (Glucophage) 1000 MG tablet TAKE 1 TABLET BY MOUTH TWICE DAILY WITH THE MORNING AND EVENING MEAL montelukast (Singulair) 10 MG tablet TAKE 1 TABLET BY MOUTH EVERY EVENING pen needle 33G x 4 mm misc Use as instructed Tirzepatide 5 mg, Subcutaneous, Weekly Tresiba FlexTouch 100 UNIT/ML injection INJECT 14 UNITS SUBCUTANEOUSLY DAILY Ventolin HFA 108 (90 Base) MCG/ACT inhaler 2 puffs, Inhalation, Every 6 hours PRN Follow-up: with PCP or our pharmacist / RN in 2 weeks for BP check, or sooner if any problem arises. This note was drafted using Ambient (AI) technology. The patient/patient's guardian has been informed and has consented to the use of this technology [1] Patient Active Problem List Diagnosis Essential hypertension Moderate persistent asthma without complication Type 2 diabetes mellitus with hyperlipidemia (HCC) Screening for colorectal cancer Screening mammogram for breast cancer Encounter for preventive health examination Tinea pedis of both feet Uncontrolled type 2 diabetes mellitus with hyperglycemia (HCC) [2] No Known Allergies documented in this encounter Plan of Treatment Upcoming Encounters Date Type Department Care Team (Late st Contact Info) Description 11/22/2025 4:00 PM EST Medication Management [facility] [address] [place] [address] Alvina Pickard, PharmD [address] [place] [address] 01/28/2026 1:15 PM EDT Office Visit [facility] [address] [place] [address] Sharmin Issa ANP [address] [place] [address] documented as of this encounter Goals Goal [...] Care Plan Weekly blood pressure task No Naomi Hyatt Weekly blood pressure task Care Plan Weekly blood pressure task No Francisco Hyattlanda Patient has chronic kidney disease Care Plan Patient has chronic kidney disease No Francisco Hyattlanda Patient has chronic kidney disease Care Plan Patient has chronic kidney disease No Edmar Naomi Weekly blood pressure task Care Plan Weekly blood pressure task No Hyatt, Naomi Weekly blood pressure task Care Plan Weekly blood pressure task No Hyatt, Naomi Patient has chronic kidney disease Care Plan Patient has chronic kidney disease No Hyatt, Naomi Patient has chronic kidney disease Care Plan Patient has chronic kidney disease No Naomi Hyatt Weekly blood pressure task Care Plan Weekly blood pressure task No Marty Lang Weekly blood pressure task Care Plan Weekly blood pressure task No Marty Lang Patient has chronic kidney disease Care Plan Patient has chronic kidney disease No Rickey Marty Patient has chronic kidney disease Care Plan Patient has chronic kidney disease No Marty Lang Weekly blood pressure task Care Plan Weekly blood pressure task No Maddi Mendoza Weekly blood pressure task Care Plan Weekly blood pressure task No MendozaMaddi london Patient has chronic kidney disease Care Plan Patient has chronic kidney disease No Maddi Mendoza Patient has chronic kidney disease Care Plan Patient has chronic kidney disease No Maddi Mendoza Weekly blood pressure task Care Plan Weekly blood pressure task No Jennie Delarosa RN Weekly blood pressure task Care Plan Weekly blood pressure task No Jennie Delarosa RN Patient has chronic kidney disease Care Plan Patient has chronic kidney disease No Jennie Delarosa RN Patient has chronic kidney disease Care Plan Patient has chronic kidney disease No Jennie Delarosa RN Weekly blood pressure task Care Plan Weekly blood pressure task No Elsy Haque [place] Weekly blood pressure task Care Plan Weekly blood pressure task No Elsy Haque [place] Patient has chronic kidney disease Care Plan Patient has chronic kidney disease No Elsy Haque [place] Patient has chronic kidney disease Care Plan Patient has chronic kidney disease No Elsy Haque [place] documented as of this encounter Visit Diagnoses Diagnosis Hypertension, unspecified type- Primary Uncontrolled type 2 diabetes mellitus with hyperglycemia (HCC) Diplopia documented in this encounter Additional Health Concerns [...] kidney disease 10/29/2025 Weekly blood pressure task 11/01/2025 Weekly blood pressure task 11/01/2025 Patient has chronic kidney disease 11/01/2025 Patient has chronic kidney disease 11/01/2025 Weekly blood pressure task 11/01/2025 Weekly blood pressure task 11/01/2025 Patient has chronic kidney disease 11/01/2025 Patient has chronic kidney disease 11/01/2025 Weekly blood pressure task 11/04/2025 Weekly blood pressure task 11/04/2025 Patient has chronic kidney disease 11/04/2025 Patient has chronic kidney disease 11/04/2025 Weekly blood pressure task 11/04/2025 Weekly blood pressure task 11/04/2025 Patient has chronic kidney disease 11/04/2025 Patient has chronic kidney disease 11/04/2025 Weekly blood pressure task 11/04/2025 Weekly blood pressure task 11/04/2025 Patient has chronic kidney disease 11/04/2025 Patient has chronic kidney disease 11/04/2025 Weekly blood pressure task 11/04/2025 Weekly blood pressure task 11/04/2025 Patient has chronic kidney disease 11/04/2025 Patient has chronic kidney disease 11/04/2025 Assessment Noted Time PHQ-9 Depression Total Score: 0 05/10/20 4:10 PM EDT documented as of this encounter Care Teams Rn First Assistant Relationship Specialty Start Date End Date hSarmin Issa ANP [address] [place] [address] PCP - General Family Medicine 07/03/21 Edwige Garcia RN [address] [place] [address] Building Construction Superintendent Family Medicine 03/12/25 documented as of this encounter
[2025-11-04 16:28] VITALS: BP 237/113; PULSE 95; RESP 18; TEMP 36.6; O2SAT 98; BMI 49.9
--- NOTE | 2025-11-04 16:31 | ECG_ITS ---
Test Reason : HTN, dizziness, blurry vision Blood Pressure : */* mmHG Vent. Rate : 88 BPM Atrial Rate : 88 BPM P-R Int : 120 ms QRS Dur : 86 ms QT Int : 368 ms P-R-T Axes : 48 33 68 degrees QTcB Int : 445 ms Normal sinus rhythm Normal ECG When compared with ECG of 10-Jan-2025 07:35, No significant change was found Referred By: Jadiel Church Electronically Signed By: MARISELA HENSLEY MD
--- NOTE | 2025-11-04 16:32 | ED.GENADULT ---
HPI - General Adult General Chief complaint: Dizziness Stated complaint: Stroke symptoms Time Seen by Provider: 11/04/25 19:38 Source: patient, RN notes reviewed and old records reviewed Mode of arrival: ambulatory Limitations: no limitations History of Present Illness ED Provider: Davie HPI narrative: 49-year-old female with a past medical history significant for diabetes, hypertension, hyperlipidemia presents for evaluation of double vision. Patient reports that she has had a headache for at least the last 4 or 5 days. She reports having significantly elevated blood pressures last week when she saw her doctor She was ultimately started on amlodipine. She reports she has had a dull headache for 4 days that intensified yesterday afternoon. She reports since the headache worsened yesterday afternoon, over 24 hours ago she started to ?see double. ? She has some associated dizziness. Denies any trauma to the head or neck. She is not anticoagulated. She denies any weakness, difficulty with speech. She has not noticed any facial asymmetry Denies any previous history of stroke Related Data Home Medications ?Medication ?Instructions ?Recorded ?Confirmed albuterol sulfate 90 mcg/actuation 2 puff inhalation Q6H PRN 11/04/25 11/04/25 aerosol inhaler (Ventolin HFA) Shortness Of Breath Or Wheezing amlodipine 10 mg tablet 10 mg PO BEDTIME 11/04/25 11/04/25 atorvastatin 10 mg tablet 10 mg PO BEDTIME 11/04/25 11/04/25 cetirizine 10 mg tablet 10 mg PO BEDTIME allergies 11/04/25 11/04/25 cholecalciferol (vitamin D3) 25 25 mcg PO BEDTIME 11/04/25 11/04/25 mcg (1,000 unit) tablet (Vitamin D3) fluticasone 500 mcg-salmeterol 50 1 ea inhalation BID 11/04/25 11/04/25 mcg/dose blistr powdr for inhalation insulin degludec 100 unit/mL (3 14 unit subcut DAILY 11/04/25 11/04/25 mL) subcutaneous pen (Tresiba FlexTouch U-100 insulin) metformin 1,000 mg tablet 1,000 mg PO BID 11/04/25 11/04/25 montelukast 10 mg tablet 10 mg PO BEDTIME 11/04/25 11/04/25 semaglutide 1 mg/dose (4 mg/3 mL) 1 mg subcut TU@0900 11/04/25 11/04/25 subcutaneous pen injector (Ozempic) vitamin B complex 1 cap PO BEDTIME 11/04/25 11/04/25 Previous Rx's ?Medication ?Instructions ?Recorded hydrochlorothiazide 50 mg tablet 50 mg PO DAILY 60 days #60 tabs 11/06/25 lisinopril 20 mg tablet 20 mg PO DAILY 30 days #30 tabs 11/06/25 Allergies Allergy/AdvReac Type Severity Reaction Status Date / Time No Known Allergies Allergy Verified 11/04/25 16:31 Review of Systems Constitutional: Constitutional: Denies body ache(s), Denies chills, Denies fever(s), Denies frequent falls and Reports headache(s) Eyes: Eyes: Reports blurry vision, Reports diplopia and Denies eye pain ENT: Reports dizziness, Denies dry mouth and Reports headache(s) Cardiovascular: Cardiovascular: Denies chest pain and Denies dyspnea on exertion Respiratory: Respiratory: Denies cough and Denies dyspnea on exertion Gastrointestinal: Gastrointestinal: Denies abdominal pain and Denies nausea Musculoskeletal: Musculoskeletal: Denies back pain Integumentary/Breasts: Skin/Breast: Denies rash Neurologic: Reports dizziness, Denies frequent falls and Reports headache(s) Psychiatric: Psychiatric: Denies anxiety PMFSH Past Medical History Medical History Menopause Allergic rhinitis Asthma Fibroids Diabetes 1.5, managed as type 2 HLD (hyperlipidemia) HTN (hypertension) Obesity Social History Social History Household Members: Spouse Housing: House Do you presently have visiting nurse or other home services: No Alcohol intake: current Alcohol intake frequency: holidays/special occasions only Patient Tobacco Use Status: Former Tobacco user service: No Physical Exam ED Vital Signs: Vital Signs - 24 hr 11/04/25 16:28 11/04/25 16:45 11/04/25 19:43 Temperature 98 F 98.6 F 98.3 F Pulse Rate 95 91 89 Respiratory Rate 18 16 17 Blood Pressure 237/113 H 154/93 H 150/87 H Pulse Oximetry 98 96 94 Oxygen Delivery Method Room Air Room Air Room Air 11/04/25 20:00 Temperature Pulse Rate 84 Respiratory Rate 14 Blood Pressure 153/83 H Pulse Oximetry 96 Oxygen Delivery Method Room Air BMI result Body Mass Index 49.9 Const General: healthy appearing, comfortable, no acute distress, alert and awake Nutritional Appearance: well nourished Orientation/consciousness: patient oriented x3 HENMT Head: Yes normocephalic and Yes atraumatic Eyes Alignment and Position: alignment normal Periorbital: periorbital findings normal Eyelids: Yes eyelids normal Conjunctivae: conjunctivae normal Sclerae: sclerae normal Corneas: corneas normal Pupils: Equal, round and reactive pupils present EOM: EOMs intact bilaterally Direct Ophthalmoscopy: normal light reflex and no papilledema Neck Neck: Yes full ROM Resp Effort & Inspection: normal respiratory effort, able to speak in complete sentences and not labored Cardio Rate: regular rate Rhythm: regular rhythm GI Inspection: No distended Palpation (GI): Soft to palpation, not firm, nontender, no guarding and not rigid Skin General skin exam: no rashes or lesions noted and elasticity normal Neuro General: patient oriented x3 Cranial nerves: Yes CN's II-XII intact bilaterally, Yes Equal, round and reactive pupils present and Yes Bilaterally intact EOM present Cognition (Neuro): normal cognition Gait exam (Neuro): Normal gait present Extrem Other: Moving all extremities well without any obvious deformities NIH Stroke Scale Time: 20:48 Level of Consciousness: Alert Level of Consciousness Questions: Answers both questions correctly Level of Consciousness Commands: Performs both tasks correctly Best Gaze: Normal Visual: No visual loss Facial Palsy: Normal Motor Arm (Right): No drift Motor Arm (Left): No drift Motor Leg (Right): No drift Motor Leg (Left): No drift Limb Ataxia: Absent Sensory: Normal Best Language: No aphasia Dysarthia: Normal Extinction and Inattention: No abnormality Score: 0 Course Course Course Narrative: RME: 49 year female presents to ED for blurred double vision with headache worrisome today headache for 1 week complete BP agent since last night. Patient denies any slurred speech facial droop or paralysis of extremities. NIH score is 0. Patient is hypotensive. Patient brought back to the back Medications Administered Discontinued Medications Generic Name Dose Route Start Last Admin Trade Name Freq PRN Reason Stop Dose Admin Amlodipine Besylate 10 mg 11/05/25 00:15 11/05/25 21:52 Amlodipine Besylate 10 Mg Tablet PO 10 mg BEDTIME ZOHRA Administration Protocol Aspirin 325 mg 11/04/25 20:41 11/04/25 21:10 Aspirin 325 Mg Tablet PO 11/04/25 20:42 325 mg ONCE ONE Administration Atorvastatin Calcium 20 mg 11/05/25 21:00 11/05/25 21:52 Atorvastatin Calcium 20 Mg Tablet PO 20 mg BEDTIME ZOHRA Administration Enoxaparin Sodium 40 mg 11/05/25 09:00 11/06/25 08:14 Enoxaparin Sodium 40 Mg/0.4 Ml Syringe SUBCUT 40 mg Q24H ZOHRA Administration Fluticasone/Vilanterol 1 puff 11/05/25 09:00 11/06/25 08:02 Fluticasone/Vilanterol 200/25 Blst.W.Dev INHALE 1 puff DAILY ZOHRA Administration Hydrochlorothiazide 25 mg 11/05/25 09:00 11/05/25 09:23 Hydrochlorothiazide 25 Mg Tablet PO 25 mg DAILY ZOHRA Administration Protocol Hydrochlorothiazide 50 mg 11/06/25 09:00 11/06/25 08:13 Hydrochlorothiazide 50 Mg Tablet PO 50 mg DAILY ZOHRA Administration Protocol Insulin Glargine 10 unit 11/05/25 09:00 11/06/25 08:14 Insulin Glargine,Hum.Rec.Anlog 100 Unit/Ml 10 Ml Vial SUBCUT 10 unit DAILY ZOHRA Administration Insulin Human Lispro 0 unit 11/05/25 07:30 11/06/25 12:14 Insulin Lispro 100 Unit/Ml 3 Ml Vial SUBCUT 2 unit QIDACHS [facility] Administration Protocol Iohexol 100 ml 11/05/25 11:38 11/05/25 11:39 Iohexol 350 Mg/Ml 100 Ml Infus..Btl IV 11/05/25 11:39 70 ml ONCE ONE Administration Lisinopril 20 mg 11/05/25 09:00 11/06/25 08:13 Lisinopril 20 Mg Tablet PO 20 mg DAILY ZOHRA Administration Protocol Metformin HCl 1,000 mg 11/05/25 09:00 11/06/25 08:13 Metformin Hcl 1,000 Mg Tablet PO 1,000 mg BID ZOHRA Administration Montelukast Sodium 10 mg 11/05/25 21:00 11/05/25 21:52 Montelukast Sodium 10 Mg Tablet PO 10 mg BEDTIME ZOHRA Administration Multivitamins/Vitamin C 1 tab 11/05/25 21:00 11/05/25 21:53 Multivitamin Tablet PO 1 tab BEDTIME ZOHRA Administration Senna 17.2 mg 11/05/25 21:00 11/05/25 21:55 Sennosides 8.6 Mg Tablet PO Not Given BEDTIME ZOHRA Sodium Chloride 3 ml 11/05/25 00:00 11/06/25 08:26 0.9 % Sodium Chloride Flush 3 Ml Syringe IVFLUSH Not Given QSHIFT ZOHRA Vitamin D 25 mcg 11/05/25 21:00 11/05/25 21:53 Cholecalciferol (Vitamin D3) 25 Mcg Tablet PO 25 mcg BEDTIME ZOHRA Administration Medical Decision Making Medical Decision Making [facility] Narrative: 49-year-old female with a past medical history as above presents for evaluation of headache and diplopia. On exam she has an NIH stroke score of 0. However she has multiple risk factors for CVA in his complain of double vision currently. This seems to be primarily in his shoe with the left eye but I do not see any objective findings or abnormalities of the left eye. The patient had a CT scan ordered in triage that was unremarkable. She does not have any evidence of a large vessel occlusion. However I think she would benefit from an MRI. I ordered an MRI of the brain without contrast to evaluate for a CVA versus mass. Unfortunately MRIs unable to get the patient done tonight and therefore we will discuss with the hospitalist for admission and she can have an MRI tomorrow morning. I ordered a dose of aspirin for the patient Differential Diagnosis Differential Diagnoses: The differential diagnosis associated with the presentation includes CVA Diplopia Intracranial mass Acute headache Complex migraine Admission/Observation Consideration of admission/observation: Escalation of care including admission/observation considered Lab Data [facility] Lab Attestation statement: I reviewed the patient's lab results. No leukocytosis or anemia. Normal platelet count. No significant electrolyte abnormalities warranting intervention. 11/06/25 08:28 11/06/25 08:28 Labs: Lab Results 11/04/25 11/04/25 Range/Units 16:58 17:04 WBC 8.5 (4.8-10.8) X10*3/uL RBC 5.03 (4.20-5.50) X10*6/uL Hgb 14.1 (12.0-16.0) g/dl Hct 42.4 (37.0-47.0) % MCV 84.3 (80.0-98.0) fL MCH 28.0 (27.0-33.0) pg MCHC 33.3 (31.0-35.0) g/dl RDW 12.9 (11.0-16.0) % Plt Count 282 (160-400) X10*3/uL MPV 9.4 (9.4-12.3) fL Immature Gran % (Auto) 0.2 (0.0-0.4) % Neut % (Auto) 57.3 (45-73) % Lymph % (Auto) 32.7 (20-40) % Morrill % (Auto) 5.7 (2-11) % Eos % (Auto) 3.2 (0-4) % Baso % (Auto) 0.9 (0-2) % Lymph # (Auto) 2.8 (1.2-4.9) X10*3/uL Morrill # (Auto) 0.5 (0.1-1.2) X10*3/uL Eos # (Auto) 0.3 (0.0-0.4) X10*3/uL Baso # (Auto) 0.1 (0.0-0.2) X10*3/uL Abs Immat Gran (auto) 0.02 (0.00-0.03) X10*3/uL Absolute Neuts (auto) 4.9 (2.0-8.3) x10*3/uL Absolute Nucleated RBC 0.000 (0.0-0.012) X10*3/uL Nucleated RBC % (auto) 0.0 (0.0-0.2) /100WBC PT 12.4 (11.2-13.5) SEC INR 1.0 (0.9-1.1) APTT 29.7 (26.7-34.1) SEC Sodium 142 (135-145) mmol/L Potassium 4.0 (3.3-5.1) mmol/L Chloride 104 (96-108) mmol/L Carbon Dioxide 28 (22-29) mmol/L Anion Gap 14 (12-20) BUN 8 L (9-16) mg/dL Creatinine 0.64 (0.5-1.4) mg/dL Estim Creat Clear Calc 135.6 Estimated GFR > 60 POC Glucose 100 (60-115) mg/dL Random Glucose 117 H (60-115) mg/dL Calcium 9.7 (8.4-10.2) mg/dL Magnesium 1.9 (1.6-2.6) mg/dL Total Bilirubin 0.5 (0.0-1.0) mg/dL AST 29 (5-31) U/L ALT 31 (0-31) U/L Alkaline Phosphatase 99 (39-117) U/L Troponin I High Sens < 2.7 (<3.5-17.0) ng/L Total Protein 7.6 (6.5-8.0) g/dL Albumin 4.8 (3.5-5.0) g/dL TSH 0.94 (0.32-4.0) uIU/mL Independent Interpretation I performed an independent interpretation of an: EKG Interpretation: Normal sinus rhythm with a rate of [address] changes Radiology Impression Discussion of test interpretation with radiology: I have reviewed the radiologist's reading. Radiologist Impression: Findings: No intra-axial mass, midline shift, hydrocephalus, or acute hemorrhage. No significant atrophy-like change or white matter disease. There is no sinus or mastoid fluid. The orbits are unremarkable. There is no acute fracture. IMPRESSION: 1. No acute intracranial findings. This document has been electronically signed by: Trae Jolly MD on 11/04/2025 19:07:15 Discharge Plan Discharge Clinical Impression: Diplopia Patient Disposition: Admitted As Inpatient Interventions: Admission Worksheet (ED) Last Done: 11/05/25 08:06 Discharge Date/Time: 11/05/25 08:44
[2025-11-04 16:45] VITALS: BP 154/93; PULSE 91; RESP 16; TEMP 37; O2SAT 96
[2025-11-04 17:03] LABS: MANUAL DIFF FLAG NO
[2025-11-04 17:04] LABS: Hematocrit 42.4 % (37.0-47.0); Hemoglobin 14.1 g/dl (12.0-16.0); Imm Gran Abs Auto 0.02 X10*3/uL (0.00-0.03); Imm Gran Pct Auto 0.2 % (0.0-0.4); Lymphocytes Absolute Auto 2.8 X10*3/uL (1.2-4.9); Mean Corpuscular HGB Conc 33.3 g/dl (31.0-35.0); Mean Corpuscular Hemoglobin 28.0 pg (27.0-33.0); Mean Corpuscular Volume 84.3 fL (80.0-98.0); NRBC Abs Auto 0.000 X10*3/uL (0.0-0.012); NRBC Pct Auto 0.0 /100WBC (0.0-0.2); Platelet Count 282 X10*3/uL (160-400); Red Blood Count 5.03 X10*6/uL (4.20-5.50); White Blood Count 8.5 X10*3/uL (4.8-10.8)
[2025-11-04 17:09] LABS: Glucose, Whole Blood 100 mg/dL (60-115)
[2025-11-04 17:10] LABS: INTERNATIONAL NORM RATIO 1.0 (0.9-1.1); Prothrombin Time 12.4 SEC (11.2-13.5)
[2025-11-04 17:13] LABS: Partial Thromboplastin Time 29.7 SEC (26.7-34.1)
[2025-11-04 17:35] LABS: Alanine Aminotransferase 31 U/L (0-31); Albumin Level 4.8 g/dL (3.5-5.0); Alkaline Phosphatase 99 U/L (39-117); Anion Gap 14 (12-20); Aspartate Amino Transferase 29 U/L (5-31); Blood Urea Nitrogen 8 mg/dL (9-16); Calcium 9.7 mg/dL (8.4-10.2); Carbon Dioxide 28 mmol/L (22-29); Chloride 104 mmol/L (96-108); Creatinine Clr Calc Pharmacy 135.6; Estimated Glomerular Filt Rate > 60; Potassium 4.0 mmol/L (3.3-5.1); Sodium 142 mmol/L (135-145); Total Protein 7.6 g/dL (6.5-8.0)
[2025-11-04 17:45] LABS: Troponin-I High Sensitivity < 2.7 ng/L (<3.5-17.0)
--- OUTSIDE RECORDS SUMMARY | 2025-11-04 18:58 | XMS_ITS | Encounter Summary ---
Author Organization [email or web address] Address [address] [facility] 7[address] [place] [address] Care Team Providers Care Vp Home Health Name Role Phone Sharmin Issa Primary Care Provider [phone] Edwige Garcia RN Unavailable [phone] Reason for Visit * Reason Onset Date Comments Nurse Triage 02/08/2025 Encounter Details Date Type Department Care Team ([facility] st Contact Info) Description 02/08/2025 Telephone [facility] MEDICINE [address] [place], [place] [phone] Sharmin Issa ANP [address] [place], [place] [phone] Nurse Triage Social History Tobacco Use Types Packs/Day Years [...] encounter Miscellaneous Notes * Telephone Encounter - MALKA Brewer - 02/08/2025 4:02 PM EDT Spoke with patient. See TC or notes tab or addendum on office visit note. * Telephone Encounter - Lesley Escobar LPN - 02/08/2025 10:10 AM EDT Triage call returned to patient who reports concerns of alarms on Freestyle CGM as she got alarms of over 300 during the night. Patient intake meat and veggies but also confirmed jello intake not sugar free. Discussed Carb intake. Patient has not been to Diabetes Education classes and has not been seen by [employer] Al[employer] in the past. This morning fasting BG 267 with numbers running between 200-300 even after taking Rysbelus metformin and long acting insulin 10 units Tresiba. Delay with [facility] to obtain Ozempic continues. Patient resolved Yolto and is active today as checked by Triage. Call placed to [facility] prior to calling patient and they are pending a PA for Ozempic. RX provided following information: . PIN : [id number]. And also [employer]N [employer] if this is helpful . Patient encouraged to drink more water. Limit carb intake and continue to monitor. BG. Reviewed reading label for serving size and Carb amount even if listed as Sugar free. Disposition reviewed and Team tasked to follow with patient as she is wondering about increase of daily injected Tresiba. Reviewed with patient home care recommendations and reasons to call back. Pt verbalized understanding and agrees. Forwarded to PCP and team as FYI to follow up PRN Protocol Used: Diabetes - High Blood Sugar (Adult) Protocol-Based Disposition: Discuss with PCP and Callback by Nurse within 1 Hour Video visit not offered Positive Triage Question: * Blood glucose > 300 mg/dL (16.7 mmol/L) AND two or more times in a row * All higher-acuity triage questions were negative Care Advice Discussed: * Treatment - Liquids * Continue Insulin * Diabetes Pills * Measure and Record Your Blood Glucose * Reasons To Call Back - Vomiting lasting over 4 hours or unable to drink any fluids - Rapid breathing occurs - You have more questions - You become worse * Telephone Encounter - Josiane Daigle - 02/08/2025 9:41 AM EDT Symptom: High Blood Sugar - Caller Reports Outcome: Schedule a same-day appointment or talk to a nurse or provider today Reason: Caller denied all higher acuity questions The caller accepted this outcome. documented in this encounter Plan of Treatment Upcoming Encounters Date Type Department Care Team (Late st Contact Info) Description 11/22/2025 4:00 PM EST Medication Management [facility] MEDICINE [address] [place] [phone] Alvina Pickard, PharmD [address] [place] [address] 01/28/2026 1:15 PM EDT Office Visit [facility] MEDICINE [address] [place] [address] Sharmin Issa ANP [address] [place] [address] documented as of this encounter Visit Diagnoses Not on filedocumented in this encounter Additional Health Concerns Assessment Noted Time PHQ-9 Depression Total Score: 6 04/05/20 24 1:07 PM EDT documented as of this encounter Care Teams Vp Home Health Relationship Specialty Start Date End Date Sharmin Issa ANP [address] [place] [address] PCP - General Family Medicine 07/03/21 Edwige Garcia, YENNIFER [address] [place] [address] Building Energy Consultant Family Medicine 03/12/25 documented as of this encounter
--- OUTSIDE RECORDS SUMMARY | 2025-11-04 18:58 | XMS_ITS | Encounter Summary ---
Author Organization [employer] Address [address] [facility] [facility] [address] 7[address] [place] [address] Care Team Providers Care Flare Man Name Role Phone Sharmin Issa Primary Care Provider [phone] Edwige Garcia RN Unavailable [phone] Encounter Details Date Type Department Care Team ([facility] st Contact Info) Description 07/02/2025 Abstract [facility] MEDICINE [address] [place], [place] [phone] Kristine Santacruz [place] Social History Tobacco Use Types Packs/Day Years [...] as of this encounter Plan of Treatment Upcoming Encounters Date Type Department Care Team (Late st Contact Info) Description 11/22/2025 4:00 PM EST Medication Management [address] [address] Alvina Pickard, PharmD [address] [place] [address] 01/28/2026 1:15 PM EDT Office Visit [address] [address] Sharmin Issa ANP [address] [place] [address] documented as of this encounter Procedures Procedure Name Priority Date/Time Associated Diagnosis Comments MAMMOGRAPHY Routine 06/28/2025 documented in this encounter Results * Mammography (06/28/2025) Mammogram BIRADS 1 Normal, Abnormal, BIRADS 1 , BIRADS 2 Anatomical Region Laterality Modality Other us Historical Provider HEALTH MAINTENANCE Final Result documented in this encounter Visit Diagnoses Not on filedocumented in this encounter Additional Health Concerns Assessment Noted Time PHQ-9 Depression Total Score: 0 05/10/20 25 4:10 PM EDT documented as of this encounter Care Teams Flare Man Relationship Specialty Start Date End Date Sharmin Issa ANP [address] [place] [phone] PCP - General Family Medicine 07/03/21 Edwige Garcia RN [address] [place] [address] Tractor Expert Family Medicine 03/12/25 documented as of this encounter
--- OUTSIDE RECORDS SUMMARY | 2025-11-04 18:58 | XMS_ITS | Encounter Summary ---
Author Organization [email or web address] Address [address] [facility] 7t [place] [address] Care Team Providers Care Merchandising Director Name Role Phone Sharmin Issa Primary Care Provider [phone] Edwige Garcia RN Unavailable [phone] Reason for Visit * Reason Onset Date Comments Appointment Request 10/12/2023 Encounter Details Date Type Department Care Team ([facility] Contact Info) Description 10/12/2023 Telephone [facility] MEDICINE [address] [place], [place] [phone] Sharmin Issa ANP [address] [place], [place] [phone] Appointment Request Social History Tobacco Use Types [...] pt requesting a f/u appt with PCP, magnetic tape typewriter operator ask pt if any concerns at the moment pt states no. documented in this encounter Plan of Treatment Upcoming Encounters Date Type Department Care Team (Late st Contact Info) Description 11/22/2025 4:00 PM EST Medication Management [address] [address] Alvina Pickard, PharmD [address] [place] [address] 01/28/2026 1:15 PM EDT Office Visit [address] [address] Sharmin Issa ANP [address] [place] [address] documented as of this encounter Visit Diagnoses Not on filedocumented in this encounter Care Teams Merchandising Director Relationship Specialty Start Date End Date Sharmin Issa ANP [address] [place] [address] PCP - General Family Medicine 07/03/21 Edwige Garcia, RN [address] [place] [address] Book Sorter Family Medicine 03/12/25 documented as of this encounter
--- OUTSIDE RECORDS SUMMARY | 2025-11-04 18:58 | XMS_ITS | Encounter Summary ---
Author Organization [employer] Address [address] [facility] 7t [place] [address] Care Team Providers Care Compliance Reviewer Name Role Phone Luis Manuel Sharmin ACE Primary Care Provider [phone] Edwige Garcia RN Unavailable [phone] Reason for Visit * Reason Comments Med Refill Encounter Details Date Type Department Care Team (Late Contact Info) Description 04/11/2023 Refill [facility] [address] [place], [place] [phone] [facility] [address] [place], [place] [phone] Social History Tobacco Use Types Packs/Day Years [...] Encounters Date Type Department Care Team (Late Contact Info) Description 11/22/2025 4:00 PM EST Medication Management [facility] MEDICINE [address] [place], [place] [phone] Alvina Pickard PharmD [address] [place] [address] 01/28/2026 1:15 PM EDT Office Visit [facility] [address] [place] [phone] Sharmin Issa ANP [address] [place], [place] [phone] documented as of this encounter Visit Diagnoses Not on filedocumented in this encounter Care Teams Compliance Reviewer Relationship Specialty Start Date End Date Sharmin Issa ANP [address] [place] [phone] PCP - General Family Medicine 07/03/21 Edwige Garcia, RN [address] [place] [phone] Campus Supervisor Family Medicine 03/12/25 documented as of this encounter
--- OUTSIDE RECORDS SUMMARY | 2025-11-04 18:58 | XMS_ITS | Encounter Summary ---
Author Organization [employer] Address [address] [facility] 7t [place] [address] Care Team Providers Care Vascular Surgeon Name Role Phone Sharmin Issa Primary Care Provider Edwige Garcia RN Unavailable [phone] Reason for Visit * Reason Onset Date Comments FYI 01/18/2025 Encounter Details Date Type Department Care Team ([facility] Contact Info) Description 01/18/2025 Telephone [facility] MEDICINE [address] [place], [place] [phone] Sharmin Issa ANP [address] [place], [place] [phone] FYI Social History Tobacco Use Types Packs/Day Years [...] encounter Miscellaneous Notes * Telephone Encounter - Kerri Desir - 01/18/2025 3:48 PM EST Tc from pt stating insulin degludec (Tresiba FlexTouch) 100 UNIT/ML injection its out of stock at [facility]. Irrigation Supervisor advised pt check at another pharmacy. documented in this encounter Plan of Treatment Upcoming Encounters Date Type Department Care Team (Late st Contact Info) Description 11/22/2025 4:00 PM EST Medication Management [facility] MEDICINE [address] [place] [phone] Alvina Pickard, PharmD [address] [place] [phone] 01/28/2026 1:15 PM EDT Office Visit [facility] MEDICINE [address] [place] [address] Sharmin Issa ANP [address] [place] [address] documented as of this encounter Visit Diagnoses Not on filedocumented in this encounter Additional Health Concerns Assessment Noted Time PHQ-9 Depression Total Score: 6 04/05/20 24 1:07 PM EDT documented as of this encounter Care Teams Vascular Surgeon Relationship Specialty Start Date End Date Sharmin Issa ANP [address] [place] [address] PCP - General Family Medicine 07/03/21 Edwige Garcia RN [address] [place] [phone] Fine Patcher Family Medicine 03/12/25 documented as of this encounter
--- OUTSIDE RECORDS SUMMARY | 2025-11-04 18:58 | XMS_ITS | Encounter Summary ---
Author Organization [employer] Address [address] [facility] [address] 7t [place] [address] Care Team Providers Care Geodesy Teacher Name Role Phone Sharmin Issa Primary Care Provider Edwige Garcia RN Unavailable [phone] Reason for Visit * Reason Comments Med Refill Encounter Details Date Type Department Care Team ([facility] st Contact Info) Description 10/12/2023 Refill [facility] MED & PEDS [address] [place], [place] [phone] Sharmin Issa ANP [address] [place] [address] Social History Tobacco Use Types Packs/Day Years [...] Description 11/22/2025 4:00 PM EST Medication Management [facility] [address] [place] [phone] Alvina Pickard PharmD [address] [place] [address] 01/28/2026 1:15 PM EDT Office Visit [facility] [address] [place] [address] Sharmin Issa ANP [address] [place] [address] documented as of this encounter Visit Diagnoses Not on filedocumented in this encounter Care Teams Geodesy Teacher Relationship Specialty Start Date End Date Sharmin Issa ANP [address] [place] [address] PCP - General Family Medicine 07/03/21 Edwige Garcia, YENNIFER [address] [place] [address] Spray Painter Helper Family Medicine 03/12/25 documented as of this encounter
--- OUTSIDE RECORDS SUMMARY | 2025-11-04 18:58 | XMS_ITS | Encounter Summary ---
Author Organization [employer] Address 75 [facility] 7t [place] [address] Care Team Providers Care Plush Brusher Name Role Phone Sharmin Issa Primary Care Provider [phone] Edwige Garcia RN Unavailable [phone] Reason for Visit * Reason Onset Date Comments error in waitlist 02/25/2025 Encounter Details Date Type Department Care Team ([facility] Contact Info) Description 02/25/2025 Telephone [facility] ADULT DENTAL [address] [place], [place] [phone] Viktor Urban DDS [address] [place], [place] [phone] error in waitlist Social History Tobacco Use [...] it will show as waitlist added today. desk manager informed. documented in this encounter Plan of Treatment Upcoming Encounters Date Type Department Care Team (Late st Contact Info) Description 11/22/2025 4:00 PM EST Medication Management [facility] MED[facility] [address] [place] [address] Alvina Pickard, PharmD [address] [place] [address] 01/28/2026 1:15 PM EDT Office Visit [facility] [address] [place] [address] Sharmin Issa ANP [address] [place] [address] documented as of this encounter Visit Diagnoses Not on filedocumented in this encounter Additional Health Concerns Assessment Noted Time PHQ-9 Depression Total Score: 6 04/05/20 24 1:07 PM EDT documented as of this encounter Care Teams Plush Brusher Relationship Specialty Start Date End Date Sharmin Issa ANP 230 [place] [address] PCP - General Family Medicine 07/03/21 Edwige Garcia, YENNIFER [address] [place] [address] Generator Switchboard Operator Family Medicine 03/12/25 documented as of this encounter
--- OUTSIDE RECORDS SUMMARY | 2025-11-04 18:58 | XMS_ITS | Clinical Summary ---
Author Organization [facility] Address [address] [facility] [address] [place] [address] Phone Care Team Providers Care Gastroenterology Manager Name Role Phone Myra Gonzalez MD Primary Care Provider [phone] Allergies No known active allergies Medications LISINOPRIL [...] 02/25/2017 ZOSTER VACCINES (1 of 2) 2023 INFLUENZA VACCINE (#1) 2025 , 09/27/2019 COVID-19 VACCINE (3 - 2024-2 6 season) 2025 01/14/2022, 12/24/2021 Adult Td,Tdap Booster 09/27/2029 09/27/2019 RSV VACCINE (1 - 1-dose 75+ series) 2048 HEPATITIS A VACCINES Aged Out No long [...] Date/Time Associated Diagnosis Comments BASIC METABOLIC PANEL (BMP) STAT 07/30/2018 8:38 AM EDT from Last 3 Months or Most Recently Relevant to Health Maintenance Results * (ABNORMAL) Basic metabolic panel (07/30/2018 8:38 AM EDT) SODIUM 138 133 - 146 mmol/L [facility] CHLORIDE 96 96 - 108 mmol/L [facility] POTASSIUM 3.6 3.3 - 5.1 mmol/L [facility] CO2 29 21 - 35 mmol/L [facility] BUN 7 6 - 19 mg/dL [facility] CREATININE 0.60 0.5 - 1.5 mg/dL [facility] GLUCOSE 275(H) 70 - 99 mg/dL [facility] CALCIUM 8.7 8.4 - 10.3 mg/dL [facility] EGFR 111 >59 mL/min/1.7 3m2 [facility] Comment:If patient is black, multiply result by 1.159. Estimated glomerular filtration rate calculated using the CKD-EPI equation. ANION GAP 17 10 - 20 mmol/L [facility] Blood 07/30/2018 8:38 AM EDT 07/30/2018 8:45 AM EDT us Chrissy Dalton PA-C LAB BLOOD BKR ORDERABLES Final Result Performing Organization Address City/State/[facility] Co de Phone Number [facility] [address] [place] [address] from Last 3 Months or Most Recently Relevant to Health Maintenance Insurance [facility] [place] [facility] Care Teams Gastroenterology Manager Relationship Specialty Start Date End Date Myra Gonzalez MD [address] [place] [id number] PCP - General Internal Medicine 07/30/18 Additional Source Comments The information contained in this document represents components of the legal health record. It is not the complete legal health record.[facility]
--- OUTSIDE RECORDS SUMMARY | 2025-11-04 18:59 | XMS_ITS | Encounter Summary ---
Author Organization [employer] Address 75 [facility] 7t [place] [address] Care Team Providers Care Apartment Maintenance Supervisor Name Role Phone Sharmin Issa Primary Care Provider [phone] Edwige Garcia RN Unavailable [phone] Reason for Visit * Reason Onset Date Comments Appointment Request 11/04/2025 Encounter Details Date Type Department Care Team ([facility] Contact Info) Description 11/04/2025 Telephone [facility] [address] [place], [place] [phone] Sharmin Issa ANP 230 [place], [place] [phone] Appointment Request Social History Tobacco Use Types [...] encounter Miscellaneous Notes * Telephone Encounter - Maddi Mendoza - 11/04/2025 12:45 PM EST Called Patient no answer left vm. Advised to call back and schedule 15 min f/u with PCP for DM around 01/27/2026. If Patient calls back ok to schedule. documented in this encounter Plan of Treatment Upcoming Encounters Date Type Department Care Team (Late st Contact Info) Description 11/22/2025 4:00 PM EST Medication Management [facility] [address] [place] [address] Alvina Pickard, PharmD [address] [place] [address] 01/28/2026 1:15 PM EDT Office Visit [facility] [address] [place] [address] Sharmin Issa, ANP 230 [place] [address] documented as of this encounter Goals Goal [...] Care Plan Weekly blood pressure task No Rjaani Horner [place] Patient has chronic kidney disease [...] Weekly blood pressure task No Naomi Hyatt Patient has chronic kidney disease Care Plan Patient has chronic kidney disease No Naomi Hyatt Patient has chronic kidney disease Care Plan Patient has chronic kidney disease No Naomi Hyatt Weekly blood pressure task Care Plan Weekly blood pressure task No Naomi Hyatt Weekly blood pressure task Care Plan Weekly blood pressure task No Naomi Hyatt Patient has chronic kidney disease Care Plan Patient has chronic kidney disease No Naomi Hyatt Patient has chronic kidney disease Care Plan Patient has chronic kidney disease No Naomi Hyatt Weekly blood pressure task Care Plan Weekly blood pressure task No Marty Lang Weekly blood pressure task Care Plan Weekly blood pressure task No Marty Lang Patient has chronic kidney disease Care Plan Patient has chronic kidney disease No Marty Lang Patient has chronic kidney disease Care Plan Patient has chronic kidney disease No Marty Lang Weekly blood pressure task Care Plan Weekly blood pressure task No Maddi Mendoza Weekly blood pressure task Care Plan Weekly blood pressure task No Maddi Mendoza Patient has chronic kidney [...] filedocumented in this encounter Additional Health Concerns Active [...] documented as of this encounter Care Teams Apartment Maintenance Supervisor Relationship Specialty Start Date End Date Sharmin Issa ANP 230 [place] [address] PCP - General Family Medicine 07/03/21 Edwige Garcia RN 230 [place] [address] Hydrologic Modeler Family Medicine 03/12/25 documented as of this encounter
--- OUTSIDE RECORDS SUMMARY | 2025-11-04 18:59 | XMS_ITS | Encounter Summary ---
Author Organization [employer] Address 75 [facility] 7t [place] [address] Care Team Providers Care Specialty Transformer Assembler Name Role Phone Sharmin Issa Primary Care Provider [phone] Edwige Garcia RN Unavailable [phone] Encounter Details Date Type Department Care Team (Latest Contact Info) Description 11/04/2025 Travel Social History Tobacco Use Types Packs/Day Years [...] Description 11/22/2025 4:00 PM EST Medication Management [facility] [address] [place] [address] Alvina Pickard, PharmD 230 [place] [address] 01/28/2026 1:15 PM EDT Office Visit [facility] [address] [place] [address] Sharmin Issa, ANP [address] [place] [address] documented as of this encounter Goals Goal [...] Plan Patient has chronic kidney disease No Liliana Hyatta Patient has chronic kidney disease Care Plan Patient has chronic kidney disease No Liliana Hyatta Weekly blood pressure task Care Plan Weekly blood pressure task No HyattLiliana fielda Weekly blood pressure task Care Plan Weekly blood pressure task No Liliana Hyatta Patient has chronic kidney disease Care Plan Patient has chronic kidney disease No Naomi Haytt Patient has chronic kidney disease Care Plan [...] Plan Patient has chronic kidney disease No Garland, Elsy, [place] Patient has chronic kidney disease Care Plan Patient has chronic kidney disease Elsy Daniel [place] documented as of this encounter Visit [...] documented as of this encounter Care Teams Specialty Transformer Assembler Relationship Specialty Start Date End Date Sharmin Issa ANP [address] [place] [address] PCP - General Family Medicine 07/03/21 Edwige Garcia RN [address] [place] [address] Vascular Physician Family Medicine 03/12/25 documented as of this encounter
--- OUTSIDE RECORDS SUMMARY | 2025-11-04 18:59 | XMS_ITS | Encounter Summary ---
Author Organization [employer] Address [address] [facility] 7t [place] [address] Care Team Providers Care Cylinder Block Hole Reliner Name Role Phone Sharmin Issa Primary Care Provider [phone] Edwige Garcia RN Unavailable [phone] Encounter Details Date Type Department Care Team (Latest Contact Info) Description 10/31/2025 Travel Social History Tobacco Use Types Packs/Day [...] Description 11/22/2025 4:00 PM EST Medication Management [facility] [address] [place] [address] Alvina Pickard, PharmD [address] [place] [address] 01/28/2026 1:15 PM EDT Office Visit [facility] [address] [place] [address] Sharmin Issa, ANP [address] [place] [address] documented as of this encounter Goals Goal [...] Plan Weekly blood pressure task No Rajani Hornre [place] Patient has chronic kidney disease Care Plan Patient has chronic kidney disease No Rajani Horner MA Patient has chronic kidney disease Care Plan Patient has chronic kidney disease No Rajani Horner [place] documented as of this encounter Visit [...] documented as of this encounter Care Teams Cylinder Block Hole Reliner Relationship Specialty Start Date End Date Sharmin Issa ANP [address] [place] [address] PCP - General Family Medicine 07/03/21 Edwige Garcia RN 230 [place] [address] Channel Process Supervisor Family Medicine 03/12/25 documented as of this encounter
--- OUTSIDE RECORDS SUMMARY | 2025-11-04 18:59 | XMS_ITS | Encounter Summary ---
Author Organization [employer] Address 75 [facility] 7t [place] [address] Care Team Providers Care Area Manager Name Role Phone Sharmin Issa Primary Care Provider [phone] Edwige Garcia RN Unavailable [phone] Encounter Details Date Type Department Care Team (Latest Contact Info) Description 10/30/2025 Travel Social History Tobacco Use Types Packs/Day [...] Description 11/22/2025 4:00 PM EST Medication Management [facility] [address] [place] [address] Alvina Pickard, PharmD [address] [place] [address] 01/28/2026 1:15 PM EDT Office Visit [facility] [address] [place] [address] Sharmin Issa, ANP [address] [place] [address] documented as of this encounter Goals Goal [...] documented as of this encounter Care Teams Area Manager Relationship Specialty Start Date End Date Sharmin Issa ANP [address] [place] [address] PCP - General Family Medicine 07/03/21 Edwige Garcia RN [address] [place] [address] Code Enforcement Officer Family Medicine 03/12/25 documented as of this encounter
--- OUTSIDE RECORDS SUMMARY | 2025-11-04 18:59 | XMS_ITS | Encounter Summary ---
Author Organization [employer] Address 75 [facility] 7t [place] [address] Care Team Providers Care Corporate Logistics Manager Name Role Phone Sharmin Issa Primary Care Provider [phone] Edwige Garcia RN Unavailable [phone] Reason for Visit * Reason Onset Date Comments Med Refill 10/18/2025 Encounter Details Date Type Department Care Team ([facility] st Contact Info) Description 10/18/2025 Telephone [facility] MED & PEDS [address] [place], [place] [phone] Sharmin Issa ANP 230 [place], [place] [phone] Med Refill Social History Tobacco Use Types [...] encounter Miscellaneous Notes * Telephone Encounter - Mairchuy Ellsworth LPN - 10/18/2025 3:57 PM EST Medication pended to PCP. * Telephone Encounter - Khalida Fonseca - 10/18/2025 3:52 PM EST TC from pt requesting medication refill. Medications needing refill : insulin degludec (Tresiba FlexTouch) 100 UNIT/ML injection To be sent to: [id number] [place], [place] - [address] [facility] documented in this encounter Plan of Treatment Upcoming Encounters Date Type Department Care Team (Late st Contact Info) Description 11/22/2025 4:00 PM EST Medication Management [facility] [address] [place] [address] Alvina Pickard, PharmD 230 [place] [address] 01/28/2026 1:15 PM EDT Office Visit [facility] 230 [place] [address] Sharmin Issa ANP [address] [place] [address] documented as of this encounter Goals Goal [...] has chronic kidney disease No Khalida Dawkins documented as of this encounter Visit Diagnoses Not on filedocumented in this encounter Additional Health Concerns Active Problems Noted Date Diagnosed Date Help patients manage their type 2 diabetes 10/18 Weekly blood pressure task 10/18/2025 Help patients manage their type 2 diabetes 10/18 Patient has chronic kidney disease 10/18/2025 Weekly blood pressure task 10/18/2025 Patient has chronic kidney disease 10/18/2025 Assessment Noted Time PHQ-9 Depression Total Score: 0 05/10/20 25 4:10 PM EDT documented as of this encounter Care Teams Corporate Logistics Manager Relationship Specialty Start Date End Date Sharmin Issa ANP [address] [place] [address] PCP - General Family Medicine 07/03/21 Edwige Garcia, YENNIFER [address] [place] [address] School Crossing Guard Supervisor Family Medicine 03/12/25 documented as of this encounter
--- OUTSIDE RECORDS SUMMARY | 2025-11-04 18:59 | XMS_ITS | Encounter Summary ---
Author Organization [employer] Address [address] [facility] [address] 7[address] [place] [address] Care Team Providers Care Forensic Engineer Name Role Phone Sharmin Issa Primary Care Provider [phone] Edwige Garcia RN Unavailable [phone] Reason for Visit * Reason Comments Med Refill Encounter Details Date Type Department Care Team ([facility] st Contact Info) Description 07/04/2024 Refill [facility] MED & PEDS [address] [place], [place] [phone] Sharmin Issa ANP [address] [place] [address] Hypertension associated with diabetes (CMS/HCC) ([facility]/HCC) Social History Tobacco Use Types Packs/Day Years [...] Description 11/22/2025 4:00 PM EST Medication Management [address] [address] Alvina Pickard PharmD [address] [place] [address] 01/28/2026 1:15 PM EDT Office Visit [facility] [address] [place] [address] Sharmin Issa ANP [address] [place] [address] documented as of this encounter Visit Diagnoses Diagnosis Hypertension associated with diabetes (HCC) Unspecified essential hypertension documented in this encounter Additional Health Concerns Assessment Noted Time PHQ-9 Depression Total Score: 6 04/05/20 24 1:07 PM EDT documented as of this encounter Care Teams Forensic Engineer Relationship Specialty Start Date End Date Sharmin Issa ANP [address] [place] [address] PCP - General Family Medicine 07/03/21 Edwige Garcia, YENNIFER [address] [place] [address] French Translator Family Medicine 03/12/25 documented as of this encounter
--- OUTSIDE RECORDS SUMMARY | 2025-11-04 18:59 | XMS_ITS | Clinical Summary ---
Author Organization [employer] Address [address] [place] [address] Care Team Providers Care Outsole Rounder Name Role Phone Luis Manuel Tennille ACE Primary Care Provider [phone] Edwige Garcia RN Unavailable [phone] Allergies No known active allergies Medications glucose-vitamin C 4-6 GM-MG oral gel Take 4 tablets by oral route if blood glucose is under 60. Wait 15 min, recheck blood glucose, if under 70 take 4 tabs again. 021 Active montelukast (Singulair) 10 MG tabletIndication s:Uncomplicated asthma, unspecified asthma severity, unspecified whether persistent TAKE 1 TABLET BY MOUTH EVERY EVENING 90 tablet 1 025 Active atorvastatin (Lipitor) 10 MG tabletIndication s:Mixed hyperlipidemia TAKE 1 TABLET BY MOUTH at bedtime 90 tablet 3 025 Active Continuous Glucose Building Carpenter Helper (FreeStyle Rohini 3 Clio) deviceIndication s:Uncontrolled type 2 diabetes mellitus with hyperglycemia (HCC) 1 each Once per day. Use as directed for CGM 1 each 025 Active glucose blood (FreeStyle Precision Laith Test) test stripIndications :Uncontrolled type 2 diabetes mellitus with hyperglycemia (HCC) Use to test blood sugar 4 times daily in case of CGM failure or extremes of BG 100 each 11 025 2025 Active pen needle 33G x 4 mm miscIndications: Uncontrolled type 2 diabetes mellitus with hyperglycemia (HCC) Use as instructed 100 each 12 025 2025 Active Blood Glucose Monitoring Suppl (Blood Glucose Monitor System) w/Device kitIndications:U ncontrolled type 2 diabetes mellitus with hyperglycemia (HCC) 1 each 3 times daily. 1 kit 025 Active glucose blood test stripIndications :Uncontrolled type 2 diabetes mellitus with hyperglycemia (HCC) Use as needed TID 100 each 12 025 2025 Active Lancets Ultra Thin 30G miscIndications: Type 2 diabetes mellitus with hyperlipidemia (HCC) Use 1 each TID and more as needed 100 each 11 Active Lancet Devices (Lancing Device) miscIndications: Type 2 diabetes mellitus with hyperlipidemia (HCC) Use with lancets 1 each 025 Active Ventolin HFA 108 (90 Base) MCG/ACT inhalerIndicatio ns:Moderate persistent asthma without complication INHALE 2 PUFFS BY MOUTH EVERY 6 HOURS NEEDED FOR WHEEZING 18 g 1 025 Active lisinopril-hydro CHLOROthiazide 20-12.5 MG tabletIndication s:Essential hypertension TAKE 1 TABLET BY MOUTH EVERY MORNING 90 tablet 1 025 Active cetirizine (ZyrTEC) 10 MG tabletIndication s:Nasal congestion TAKE 1 TABLET BY MOUTH ONCE EVERY MORNING NEEDED FOR ALLERGIES 90 tablet 1 025 Active cholecalciferol VITAMIN D (Vitamin D-3) 50 MCG (2000 UT) capsule TAKE 1 CAPSULE(50 MCG) BY MOUTH IN THE MORNING 90 capsule 1 025 Active Fluticasone-Salm eterol (Advair Diskus) 500-50 MCG/ACT aerosol powderIndication s:Moderate persistent asthma without complication Inhale 1 Inhalation 2 times daily. 180 each 3 025 Active metFORMIN (Glucophage) 1000 MG tabletIndication s:Hypertension associated with diabetes (HCC) TAKE 1 TABLET BY MOUTH TWICE DAILY WITH THE MORNING AND EVENING MEAL 180 tablet 1 025 Active Tresiba FlexTouch 100 UNIT/ML injectionIndicat ions:Uncontrolle d type 2 diabetes mellitus with hyperglycemia (HCC) INJECT 14 UNITS SUBCUTANEOUSLY DAILY 15 mL 11 025 Active Continuous Glucose Sensor (FreeStyle Rohini 3 Plus Sensor) miscIndications: Uncontrolled type 2 diabetes mellitus with hyperglycemia (HCC) 1 each every 15 days. Apply 1 every 15 days as directed for CGM 2 each 11 025 Active amLODIPine (Norvasc) 10 MG tabletIndication s:Essential hypertension Take 1 tablet (10 mg) by mouth in the morning. 90 tablet 1 10/31/20 25 5:38 PM EST Active Tirzepatide 5 MG/0.5ML solution auto-injectorInd ications:Uncontr olled type 2 diabetes mellitus with hyperglycemia (HCC) Inject 5 mg under the skin 1 (one) time per week. 2 mL 2 Active amLODIPine (Norvasc) 10 MG tablet TAKE 1 TABLET(10 MG) BY MOUTH IN THE MORNING 90 tablet 1 025 2024 Discontinued(R eorder (will not trigger notification to Pharmacy)) Continuous Glucose Sensor (FreeStyle Rohini 3 Plus Sensor) miscIndications: Uncontrolled type 2 diabetes mellitus with hyperglycemia (HCC) 1 each every 15 days. Apply 1 every 15 days as directed for CGM 2 each 11 025 2024 Discontinued(R eorder (will not trigger notification to Pharmacy)) insulin degludec (Tresiba FlexTouch) 100 UNIT/ML injectionIndicat ions:Uncontrolle d type 2 diabetes mellitus with hyperglycemia (HCC) Inject 14 Units under the skin Once daily. 3 mL 11 025 2024 Discontinued semaglutide (Ozempic) 2 MG/1.5ML solution pen-injectorIndi cations:Type 2 diabetes mellitus with hyperlipidemia (HCC) Inject 1 mg under the skin 1 (one) time per week. 2 each 12 025 2024 Discontinued(D ose adjustment) Active Problems Problem Noted Date Diagnosed Date Uncontrolled type 2 diabetes mellitus with hyper glycemia 01/16/2025 Screening for colorectal cancer 04/06/2024 Assessment & Plan (04/06/2024 1:16 PM EDT): Send [facility] again. I gave pt information of [facility] to call and set up for delivery [...] 02/13/2023 Type 2 diabetes mellitus with hyperlipidemia 12/2022 Overview (04/05/2024): Metformin 1000g BID Rybelsus 14mg Statin: Atorvastatin CEM/ARB: lisinopril-hydrochlorothiazide ASA: no Assessment & Plan (04/06/2024 1:17 PM EDT): Seen yesterday by PCP, fu POC Resolved Problems Problem Noted Date Diagnosed Date Resolved Date Obstructive sleep apnea syndrome 02/13/2023 03/25/2023 Encounters Date Type Department Care Team Description 11/04/2025 3:00 PM EST Office Visit [facility] [address] [place] [phone] Negar Porter MD Hypertension, unspecified type (Primary Dx); Uncontrolled type 2 diabetes mellitus with hyperglycemia (HCC); Diplopia 11/04/2025 Telephone [facility] [address] [place] [address] [phone] Tennille Crespo ANP Nurse Triage 11/04/2025 Travel 11/04/[address] [phone] Tennille Crespo ANP Appointment Request 11/04/[address] [phone] Tennille Crespo ANP Nurse Triage 11/01/2025 Telephone [facility] [address] [place] [phone] Tennille Crespo ANP Prior Authorization 11/01/[address] [phone] Tennille Crespo ANP 10/31/2025 2:00 PM EST Office Visit [address] [phone] Tennille Crespo ANP Uncontrolled type 2 diabetes mellitus with hyperglycemia (HCC) (Primary Dx); Essential hypertension; Type 2 diabetes mellitus with hyperlipidemia (HCC); Obstructive sleep apnea syndrome; Uterine leiomyoma, unspecified location 10/31/2025 Travel 10/30/2025 Travel 10/29/2025 Telephone [facility] [address] [place] [phone] Rajani Horner [place] 10/18/2025 Telephone [facility] [address] [place] [address] Tennille Crespo ANP Med Refill 10/18/[address] [phone] Tennille Crespo ANP Uncontrolled type 2 diabetes mellitus with hyperglycemia (HCC) 08/15/[address] [address] Tennille Crespo ANP october recall from Last 3 Months Immunizations Immunization Administration Dates Next Due Influenza injectable quadriv [...] Mass Index 51.58 11/04/2025 3:16 PM EST Plan of Treatment Upcoming Encounters Date Type Department Care Team (Late st Contact Info) Description 11/22/2025 4:00 PM EST Medication Management [facility] [address] [place] [phone] Alvina Pickard, PharmD [address] [place] [address] 01/28/2026 1:15 PM EDT Office Visit [facility] [address] [place] [phone] Tennille Crespo, ANP [address] [place], [place] [phone] Health Maintenance Due Date Last Done Comments CT Colonography 1975 Colonoscopy 1975 Colorectal Cancer Screening 1975 Dental Oral Exam 1973 Dental Prophylaxis 1973 Dental X-Ray: Full Mouth 1973 FIT DNA/Cologuard 1973 FIT 1973 FOBT 1975 Sigmoidoscopy 1975 Family Planning (PISQ) 1988 Hepatitis B Vaccines (1 of 3 - 19+ 3-dose series) 1992 Diabetes: Urine Protein Screening 01/18/2023 01/18/2022, 01/18/2022, 01/28/2021 RSV Patients and Patients Aged 60 years or older (1 - Risk 50-74 years 1-dose series) 2023 Zoster Vaccines (1 of 2) 2023 Lipid Panel 02/19/2024 02/18/2023, 02/12, 01/28/2021 Diabetes: Foot Exam 04/06/2025 04/06/2024, 04/06/2024, 04/06/2024, Additional history exists COVID-19 Vaccine (2024- season) 2025 07/01/2022, 01/14/2022, 12/24/2021 Influenza Vaccine (#1) 2025 , 09/27/2019, 12/01/2012 Alcohol/Substance Use Screening 01/16/2026 01/16/2025 Diabetes: Hemoglobin A1C 01/29/202610/31/ 025, 08/02/2025, 05/10/2025, Additional history exists Dental X-Ray: Bitewings 02/26/2026 02/25/2025 Depression Screening 05/10/2026 05/10/2025, 05/10/20 25 SDOH Screening 05/10/2026 05/10/2025 Eye Exam 08/16/2026 08/16/2024, 1001/2024, 08/16/2024, Additional history exists Cervical Cancer Screening 09/18/2026 HPV/Cotest 09/18/2026 09/18/2021 Pap Smear 09/18/2026 09/18/2021 Disability Screening 10/30/2026 10/30/2025 Tobacco Screening 11/04/2026 11/04/2025 Mammogram 07/02/2027 07/02/2025, 06/14, 06/28/2025, Additional history exists DTaP/Tdap/Td Vaccines (2 - Td or Tdap) 09/27/2029 09/27/2019 HIV Screening Completed 02/18/2023, 01/18/2022 Hepatitis C [...] patient's age to complete this topic Meningococcal B Vaccine Aged Out No l onger eligible based on patient's age to complete this topic Meningococcal Vaccine Aged Out No anders sudheer eligible based on patient's age to complete this topic RSV under 20 months Aged Out No longe r eligible based on patient's age to complete this topic Rotavirus Vaccines Aged Out No longer eligible based on patient's age to complete this topic Goals Goal Patient Goal Type Associated Problems [...] Plan Patient has chronic kidney disease No MendozaMaddi london Patient has chronic kidney disease Care Plan Patient has chronic kidney disease No Maddi Mendoza Weekly blood pressure task Care Plan Weekly blood pressure task No Jennie Delarosa RN Weekly blood pressure task Care Plan Weekly blood pressure task No Jennie Delarosa RN Patient has chronic kidney disease Care Plan Patient has chronic kidney disease No Jenine Delarosa RN Patient has chronic kidney disease [...] chronic kidney disease No Elsy Haque MA Procedures Procedure Name Priority Date/Time Associated Diagnosis Comments GLUCOSE, WHOLE BLOOD Routine 11/04/2025 5:04 PM EST HIGH SENSITIVITY TROPONIN I Routine 11/04/2025 4:58 PM EST COMPREHENSIVE METABOLIC PANEL Routine 11/04/2025 4:58 PM EST APTT Routine 11/04/2025 4:58 PM EST PROTHROMBIN TIME-INR Routine 11/04/2025 4:58 PM EST CBC WITH AUTO DIFFERENTIAL Routine 11/04/2025 4:58 PM EST POCT GLYCATED HEMOGLOBIN, TOTAL Routine 10/31/2025 2:00 PM EST Type 2 diabetes mellitus with hyperlipidemia (HCC) POCT GLUCOSE (CPT-89655) Routine 10/31/2025 1:58 PM EST Type 2 diabetes mellitus with hyperlipidemia (HCC) BI MAMMOGRAM SCREENING TOMOSYNTHESIS BILATERAL Routine 06/28/2025 3:15 PM EDT BITEWING - SINGLE RADIOGRAPHIC IMAGE Routine 02/25/2025 1:00 PM EDT HEPATITIS C AB W/REFL TO HCV [...] Recently Relevant to Health Maintenance Results * Glucose, Whole Blood (11/04/2025 5:04 PM EST) [facility] Glucose, Whole Blood 100 60 - 115 mg/dL [facility] Comment:METER #: [id number] 11/04/2025 5:04 PM EST 11/04/2025 5:08 PM EST us Generic External Data Provider LAB BLOOD ORDERAB LES Final Result [facility] [address] [place] [phone] * High Sensitivity Troponin I (11/04/2025 4:58 PM EST) [facility] TROPONIN I HIGH SENSITIVITY <2.7 <3.5 - 17.0 ng/L [facility] Comment:The Garner high sens itivity Troponin-I results should beused in conjunction with other diagnostic information suchas ECG, clinical observations and information, and patientsymptoms to aid in the diagnosis of MD. 11/04/2025 4:58 PM EST 11/04/2025 5:02 PM EST us Generic External Data Provider LAB BLOOD ORDERAB LES Final Result [facility] [address] [place] [phone] * CBC auto differential (11/04/2025 4:58 PM EST) White Blood Count 8.5 4.8 - 10.8 X10*3/uL [facility] Red Blood Count 5.03 4.20 - 5.50 X10*6/uL [facility] Hemoglobin 14.1 12.0 - 16.0 g/dl [facility] Hematocrit 42.4 37.0 - 47.0 % [facility] Mean Corpuscular Volume 84.3 80.0 - 98.0 fL [facility] Mean Corpuscular Hemoglobin 28.0 27.0 - 33.0 pg [facility] Mean Corpuscular HGB Conc 33.3 31.0 - 35.0 g/dl [facility] Red Cell Distribution Width 12.9 11.0 - 16.0 % [facility] Platelet Count 282 160 - 400 X10*3/uL [facility] Mean Platelet Volume 9.4 9.4 - 12.3 fL [facility] Neutrophils Percent Auto 57.3 45 - 73 % [facility] Imm Gran Pct Auto 0.2 0.0 - 0.4 % [facility] Lymphocytes Percent Auto 32.7 20 - 40 % [facility] Monocytes Percent Auto 5.7 2 - 11 % [facility] Eosinophils Percent Auto 3.2 0 - 4 % [facility] Basophils Percent Auto 0.9 0 - 2 % [facility] NRBC Pct Auto 0.0 0.0 - 0.2 /100WBC [facility] Neutrophils Absolute Auto 4.9 2.0 - 8.3 x10*3/uL [facility] Imm Gran Abs Auto 0.02 0.00 - 0.03 X10*3/uL [facility] Lymphocytes Absolute Auto 2.8 1.2 - 4.9 X10*3/uL [facility] Monocytes Absolute Auto 0.5 0.1 - 1.2 X10*3/uL [facility] Eosinophils Absolute Auto 0.3 0.0 - 0.4 X10*3/uL [facility] Basophils Absolute Auto 0.1 0.0 - 0.2 X10*3/uL [facility] NRBC Abs Auto 0.000 0.0 - 0.012 X10*3/uL [facility] 11/04/2025 4:58 PM EST 11/04/2025 5:02 PM EST us Generic External Data Provider LAB BLOOD ORDERAB LES Final Result Performing Organization Address [facility]/ZIP Co de Phone Number [facility] [address] [place] [phone] * Partial Thromboplastin Time, Activated (APTT) (11/04/2025 4:58 PM EST) Partial Thromboplastin Time 29.7 26.7 - 34.1 SEC [facility] 11/04/2025 4:58 PM EST 11/04/2025 5:02 PM EST Generic External Data Provider LAB BLOOD ORDERAB LES Final Result Performing Organization Address [facility] Co de Phone Number [facility] [address] [place] [phone] * Prothrombin Time-INR (11/04/2025 4:58 PM EST) Prothrombin Time 12.4 11.2 - 13.5 SEC [facility] INTERNATIONAL NORM RATIO 1.0 0.9 - 1.1 [facility] Comment:INTERNATIONAL NORMAL IZED RATIO (INR) REFERENCE RANGES Reference RangeFor patients not on anticoagulant therapy: 0.9 - 1.1INR ranges for oral anticoagulanttherapy:For prevention and treatment of venous thrombosis and pulmonary embolism: 2.0 - 3.0For acute myocardial infarction with aspirin therapy: 2.0 - 3.0For acute myocardial infarction without aspirin therapy: 3.0 - 4.0For patients with mechanical prosthetic heart valves: 2.5 - 3.5 11/04/2025 4:58 PM EST 11/04/2025 5:02 PM EST us Generic External Data Provider LAB BLOOD ORDERAB LES Final Result [facility] [address] [place], [place] [phone] * (ABNORMAL) Comprehensive Metabolic Panel (11/04/2025 4:58 PM EST) Sodium 142 135 - 145 mmol/L [facility] Potassium 4.0 3.3 - 5.1 mmol/L [facility] Chloride 104 96 - 108 mmol/L [facility] Carbon Dioxide 28 22 - 29 mmol/L [facility] Anion Gap 14 12 - 20 [facility] Urea Nitrogen (BUN) 8(L) 9 - 16 mg/dL [facility] Creatinine, Serum 0.64 0.5 - 1.4 mg/dL [facility] Creatinine Clr Calc Pharmacy 135.6 [facility] Comment:Provided height and weight: 160.02 cm,127.913 kg.eGFR (calculated from the MDRD study equation) and eCrCl(calculated from the Cockcroft-Gault equation) are based ondifferent parameters and may not yield comparable results.If eCrCl result is absurd, please check patient'sheight/weight. Estimated Glomerular Filt Rate >60 [facility] Comment:Chronic Kidney Disea se: Estimated GFR < 60 mL/min/1.86b2Rfkyef Kidney Disease: Estimated GFR < 15 mL/min/1.73m2 Glucose 117(H) 60 - 115 mg/dL [facility] Calcium 9.7 8.4 - 10.2 mg/dL [facility] Bilirubin, Total 0.5 0.0 - 1.0 mg/dL [facility] Aspartate Amino Transferase 29 5 - 31 U/L [facility] Alanine Aminotransferase 31 0 - 31 U/L [facility] Total Protein 7.6 6.5 - 8.0 g/dL [facility] Albumin Level 4.8 3.5 - 5.0 g/dL [facility] Alkaline Phosphatase 99 39 - 117 U/L [facility] 11/04/2025 4:58 PM EST 11/04/2025 5:02 PM EST Generic External Data Provider LAB BLOOD ORDERAB LES Final Result [facility] [address] [place] [phone] * (ABNORMAL) POCT Hgb A1c (10/31/2025 2:00 PM EST) Hemoglobin A1C 8.2(A) 4.0 - 5.7 % QC Media Lot # [id number] Lot# Expiration Date 3, Blood 10/31/2025 2:00 PM EST Tennille ACE POINT OF CARE TEST ENTER/EDIT OR DERABLES Final Result * POCT Glucose (10/31/2025 1:58 PM EST) Glucose Blood, POC 108 60 - 200 mg/dL QC Media Lot # [id number] Lot# Expiration Date ,669,450 Blood Capillary blood specimen / Unknown 10/31/2025 1:58 PM EST Tennille Crespo ANP POINT OF CARE TEST ENTER/EDIT OR DERABLES Final Result * BI Mammogram Screening Tomosynthesis Bilateral (06/28/2025 3:15 PM EDT) Anatomical Region Laterality Modality Breast Bilateral Mammography 06/28/2025 3:15 PM EDT Narrative 07/02/2025 3:43 PM EDT [address] [place] [address] Mammography Report Signed Patient: Mónica Membreno MR#: [id number] : 1975 Acct:[id number] Age/Sex: 49 / F ADM Date: 06/28/25 Loc: HO.MAMMO Attending Dr: Tennille Crespo NP Ordering Physician: TENNILLE CRESPO NP Results: 1Negative Date of Service: 06/28/25 Follow Up: 1 Year From Orig inal Mammogram Procedure(s): MM tomosynthesis screening BI Accession Number(s): [id number] cc: TENNILLE CRESPO NP EXAMINATION: MM SCREENING DIGITAL BREAST TOMOSYNTHESIS, BILATERAL CLINICAL INFORMATION: Screening. Asymptomatic. COMPARISON: May 07, 2023 TECHNIQUE: Digital breast tomosynthesis is performed in both the craniocaudal and mediolateral oblique views along with computer-aided detection (CAD). FINDINGS: BREAST COMPOSITION: There are scattered areas of fibroglandular density (ACR BI-RADS breast composition Category b). BILATERAL BREASTS: No significant masses, suspicious calcifications or other abnormalities are seen in either breast. MM/MM tomosynthesis screening BI IMPRESSION: BILATERAL BREASTS: Negative, no mammographic evidence of malignancy. Normal interval follow-up is recommended in 12 months. ASSESSMENT: BI-RADS 1 - Negative RECOMMENDATION: Routine annual mammography screening. FOLLOW-UP: 1 year F/U This examination should not preclude the clinical evaluation of a suspicious palpable abnormality. This patient's information was entered into a reminder system with a target due date for their next mammogram. Electronically signed by: Blas Mancera MD 07/02/2025 03:41 PM EDT Dictated By: Blas Mancera MD Signed By: <Electronically signed by Blas Mancera MD in OV> 07/02/25 1541 DD/ 1515 TD/TT: 06/28/25 1545 Customer Resolution Specialist: Procedure Note Donotuseinterpreter, Image - 07/02/2025 [facility] [address] [place], [place] [address] Mammography Report Signed Patient: Mónica MembrenoMR#: [id number] : 1975Acct:[id number] Age/Sex: 49 / FADM Date: 06/28/25 Loc: HO.MAMMO Attending Dr: Tennille Crespo NP Ordering Physician: TENNILLE CRESPO NPResults: 1Negative Date of Service: 06/28/25Follow Up: 1 Year From Orig inal Mammogram Procedure(s): MM tomosynthesis screening BI Accession Number(s): [id number] cc: TENNILLE CRESPO NP EXAMINATION: MM SCREENING DIGITAL BREAST TOMOSYNTHESIS, BILATERAL CLINICAL INFORMATION: Screening. Asymptomatic. COMPARISON: May 07, 2023 TECHNIQUE: Digital breast tomosynthesis is performed in both the craniocaudal and mediolateral oblique views along with computer-aided detection (CAD). FINDINGS: BREAST COMPOSITION: There are scattered areas of fibroglandular density (ACR BI-RADS breast composition Category b). BILATERAL BREASTS: No significant masses, suspicious calcifications or other abnormalities are seen in either breast. MM/MM tomosynthesis screening BI IMPRESSION: BILATERAL BREASTS: Negative, no mammographic evidence of malignancy. Normal interval follow-up is recommended in 12 months. ASSESSMENT: BI-RADS 1 - Negative RECOMMENDATION: Routine annual mammography screening. FOLLOW-UP: 1 year F/U This examination should not preclude the clinical evaluation of a suspicious palpable abnormality. This patient's information was entered into a reminder system with a target due date for their next mammogram. Electronically signed by: Blas Mancera MD 07/02/2025 03:41 PM EDT Dictated By: Blas Mancera MD Signed By: <Electronically signed by Blas Mancera MD in OV> 07/02/25 1541 DD/ 1515 TD/TT: 06/28/25 1545 Customer Resolution Specialist: Tennille Crespo ANP IMG BI PROCEDURES Final Result * Hepatitis C Antibody with Reflex to HCV, RNA, Quantitative, Real-Time PCR (02/18/2023 8:22 AM EDT) Hepatitis C Antibody NON-REACT CECI NON-REACT CECI [facility] [place] [employer] Index 0.04 <1.00 [facility] [place] [facility] Comment: HCV antibody was non-reactive. There is no laboratory evidence of HCV infection. In most cases, no further action is required. However, if recent HCV exposure is suspected, a test for HCV RNA (test code 95539) is suggested. For additional information please refer to http://Springshot.Sparkbuy/faq/KRW05k9 (This link is being provided for informational/ educational purposes only.) Blood Venous blood specimen / Unknown 02/18/2023 8:22 AM EDT 02/18/2023 8:23 AM EDT Narrative [facility] - 02/21/2023 10:16 AM EDT FASTING:YES FASTING: YES [facility] LAB BLOOD ORDERABLES Final Resul t [facility] [address] [facility], [place] [address] [facility] [place] [employer] [address] [place] [address] * HIV-1/2 Antigen and Antibodies, Fourth Generation, with Reflexes (02/18/2023 8:22 AM EDT) Pathologist [facility] HIV Antigen/Antibody, 4th Generation NON-REAC TIVE NON-REAC TIVE [facility] [place] [employer] Comment: HIV-1 antigen and HIV-1/HIV-2 antibodies were not detected. There is no laboratory evidence of HIV infection. PLEASE NOTE: This information has been disclosed to you from records whose confidentiality may be protected by state law. If your state requires such protection, then the state law prohibits you from making any further disclosure of the information without the specific written consent of the person to whom it pertains, or as otherwise permitted by law. A general authorization for the release of medical or other information is NOT sufficient for this purpose. For additional information please refer to http://Springshot.Sparkbuy/faq/UCT946 (This link is being provided for informational/ educational purposes only.) The performance of this assay has not been clinically validated in patients less than 2 years old. Blood Venous blood specimen / Unknown 02/18/2023 8:22 AM EDT 02/18/2023 8:23 AM EDT Narrative [facility] - 02/21/2023 10:16 AM EDT FASTING:YES FASTING: YES [facility] LAB BLOOD ORDERABLES Final Resul t [facility] [address] [facility], [place] [address] [facility] [place] [employer] [address] [place] [address] * (ABNORMAL) Lipid Panel, Standard (02/18/2023 8:22 AM EDT) [facility] Cholesterol, Total 173 <200 mg/dL [employer] [facility] HDL Cholesterol 41(L) > OR = 50 mg/dL [employer] [facility] Triglycerides 204(H) <150 mg/dL [employer] Comment: If a non-fasting specimen was collected, consider repeat triglyceride testing on a fasting specimen if clinically indicated. De Jesus et al. J. of Clin. Lipidol. 2015;9:129-169. LDL Cholesterol 100(H) mg/dL (calc) [employer] [facility] Comment: Reference range: <100 Desirable range <100 mg/dL for primary prevention; <70 mg/dL for patients with CHD or diabetic patients with > or = 2 CHD risk factors. LDL-C is now calculated using the Abilio-Kevin calculation, which is a validated novel method providing better accuracy than the Friedewald equation in the estimation of LDL-C. Abilio SONG et al. KHUSHI. 2013;310(19): 3386-2789 (http://education.EeBria/faq/LAB335) Chol/HDLC Ratio 4.2 <5.0 (calc) [facility] Non-HDL Cholesterol 132(H) <130 mg/dL (calc) [employer] [facility] Comment: For patients with diabetes plus 1 major ASCVD risk factor, treating to a non-HDL-C goal of <100 mg/dL (LDL-C of <70 mg/dL) is considered a therapeutic option. Blood Venous blood specimen / Unknown 02/18/2023 8:22 AM EDT 02/18/2023 8:23 AM EDT Narrative [facility] - 02/21/2023 10:16 AM EDT FASTING:YES FASTING: YES us Tennille Crespo [facility] LAB BLOOD ORDERABLES Final Resul t Performing Organization Address City/[facility] Co de Phone Number [facility]ST [address], [place] [address] [facility] [address] [place] [address] * (ABNORMAL) ALBUMIN, RANDOM URINE W/CREATININE (01/18/2022 9:17 AM EST) Microalbumin Urine 3.9 See Note: mg/dL [facility] Comment: Reference Range: Reference Range Not established Microalb/Creat Ratio 46(H) <30 mcg/mg creat [facility] Comment: The ADA defines abnormalities in albumin excretion as follows: Albuminuria Category Result (mcg/mg creatinine) Normal to Mildly increased <30 Moderately increased 30-299 Severely increased > OR = 300 The ADA recommends that at least two of three specimens collected within a 3-6 month period be abnormal before considering a patient to be within a diagnostic category. Creatinine, Urine 85 20 - 275 mg/dL [facility] 01/18/2022 9:17 AM EST us Tennille Crespo [facility] LAB URINE ORDERABLES Final Resul t Performing Organization Address [facility] de Phone Number [facility] [address] [place] [address], * THINPREP PAP (09/18/2021 12:00 AM EDT) Clinical Information: None given [facility] COMMENT SEE COMMENT [facility] Comment: EXPLANATORY NOTE: The Pap is a screening test for cervical cancer. It is not a diagnostic test and is subject to false negative and false positive results. It is most reliable when a satisfactory sample, regularly obtained, is submitted with relevant clinical findings and history, and when the Pap result is evaluated along with historic and current clinical information. 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 [facility] Interpretation/R esult: Negative for intraepithelial lesion or malignancy. [facility] LMP: NONE GIVEN [facility] Prev. BX: NONE GIVEN [facility] Prev. PAP: NONE GIVEN [facility] SOURCE: None given [facility] Statement Of Adequacy: SEE COMMENT [facility] Comment: Satisfactory for evaluation. Endocervical/transformation zone component absent. Age and/or menstrual status not provided 09/18/2021 Tennille ACE LAB PATHOLOGY ORDERABLES Final R esult Performing Organization Address [facility] de Phone Number [facility]ly [facility] [address] * HPV mRNA E6/E7 (09/18/2021 12:00 AM EDT) HPV nRNA E6/E7 Not Detected Not Detected [facility] Comment: Methodology: Wrapper Sizer-Mediated Amplification This assay detects E6/E7 viral messenger RNA (mRNA) from 14 high-risk HPV types (16,18,31,33,35,39,45,51,52,56,58,59,66,68). The analytical performance characteristics of this assay have been determined by [employer]. The modifications have not been cleared or approved by the FDA. This assay has been validated pursuant to the CLIA regulations and is used for clinical purposes. For additional information, please refer to http://education.BioKier.TableApp/faq/CCV176u6 (This link if provided for information/ educational purposes only.) 09/18/2021 Tennille Crespo ANP LAB BLOOD ORDERABLES Final Resul t Performing Organization Address [facility] Co de Phone Number [facility] [address] from Last 3 Months or Most Recently Relevant to Health Maintenance Additional Health Concerns Active Problems Noted Date [...] 11/04/2025 Patient has chronic kidney disease 11/04/2025 Insurance [facility] MEDICAID STAND ADULT Care Teams Outsole Rounder Relationship Specialty Start Date End Date Tennille Crespo ANP [address] [place], [place] PCP - General Family Medicine 07/03/21 Edwige Garcia RN [address] [place], [place] Helicopter Crew Chief Family Medicine 03/12/25
--- OUTSIDE RECORDS SUMMARY | 2025-11-04 18:59 | XMS_ITS | Encounter Summary ---
Author Organization [employer] Address [address] [facility] 7t [place] [address] Care Team Providers Care Funding Analyst Name Role Phone Sharmin Issa Primary Care Provider [phone] Edwige Garcia RN Unavailable [phone] Reason for Visit * Reason Onset Date Comments Nurse Triage 11/04/2025 Encounter Details Date Type Department Care Team ([facility] Contact Info) Description 11/04/2025 Telephone [facility] [address] [place], [place] [phone] Sharmin Issa ANP [address] [place], [place] [phone] Nurse Triage Social History Tobacco Use Types [...] encounter Miscellaneous Notes * Telephone Encounter - Nubia Dinero RN - 11/04/2025 10:19 AM EST called pt to triage, spoke to pt. pt states her BP in the office last time was high and thinks could still be high. reviewed the notes of the visit. pt states does not have a home BP monitor but has a mild headache, intermittent dizziness, and some blurred vision. pt denies chest pain, sob, constant symptoms, current or severe symptoms. pt takes Amlodipine now as well as Lisinopril as prescribed. given appt Tuesday with blue team provider at 3:30 for BP check and exam. no available appt with PCP at this time. advised home care: rest, fluids, medications as prescribed, lie down, OTC Tylenol as needed and call back if worsening or new concerns. pt understands and agrees with plan. Protocol Used: Blood Pressure - High (Adult) Protocol-Based Disposition: See in Office or Video Visit within 2 Weeks Positive Triage Question: * Patient wants doctor (or RAILROAD BRAKE OPERATOR/PA) to measure BP * All higher-acuity triage questions were negative. Care Advice Discussed: * High Blood Pressure - Lifestyle Changes * Reasons To Call Back - Headache, blurred vision, difficulty talking, or difficulty walking occurs - Chest pain or difficulty breathing occurs - You become worse * Telephone Encounter - Marty Lang - 11/04/2025 9:27 AM EST Symptom: Vision Loss or Change Outcome: Schedule an urgent appointment (within 1 hour) or talk to a nurse or provider soon Reason: Started within the past 3 days The caller accepted this outcome. Contact pt at [phone] documented in this encounter Plan of Treatment Upcoming Encounters Date Type Department Care Team (Late st Contact Info) Description 11/22/2025 4:00 PM EST Medication Management [facility] [address] [place] [address] Alvina Pickard, PharmD [address] [place] [address] 01/28/2026 1:15 PM EDT Office Visit [facility] [address] [place] [address] Sharmin Issa ANP [address] [place] [address] documented as of this encounter Goals Goal [...] Care Plan Weekly blood pressure task No HyattNaomi field Weekly blood pressure task Care Plan Weekly blood pressure task No HyattLiliana fielda Patient has chronic kidney disease Care Plan Patient has chronic kidney disease No Liliana Hyatta Patient has chronic kidney disease Care Plan Patient has chronic kidney disease No HyattLiliana fielda Weekly blood pressure task Care Plan Weekly blood pressure task No Hyatt Naomi Weekly blood pressure task Care Plan Weekly blood pressure task No HyattFrancisco fieldNaomi Patient has chronic kidney disease Care Plan Patient has chronic kidney disease No Naomi Hyatt Patient has chronic kidney disease Care Plan Patient has chronic kidney disease No Liliana Hyatta Weekly blood pressure task Care Plan Weekly blood pressure task No Marty Lang Weekly blood pressure task Care Plan Weekly blood pressure task No Rikcey Marty Patient has chronic kidney disease Care Plan Patient has chronic kidney disease No Rickey Marty Patient has chronic kidney disease Care Plan Patient has chronic kidney disease No Rickey Marty Weekly blood pressure task Care Plan Weekly [...] Patient has chronic kidney disease No Jennie Delarosa, YENNIFER Weekly blood pressure task Care Plan Weekly blood pressure task No Elsy Haque [place] Weekly blood pressure task Care Plan Weekly blood pressure task No Elsy Ha[place], [place] Patient has chronic kidney disease Care Plan Patient has chronic kidney disease Elsy Daniel [place] Patient has chronic kidney disease Care [...] documented as of this encounter Care Teams Funding Analyst Relationship Specialty Start Date End Date Sharmin Issa ANP [address] [place] [address] PCP - General Family Medicine 07/03/21 Edwige Garcia RN [address] [place] [address] Highwall Drill Operator Family Medicine 03/12/25 documented as of this encounter
--- OUTSIDE RECORDS SUMMARY | 2025-11-04 18:59 | XMS_ITS | Encounter Summary ---
Author Organization [employer] Address [address] [facility] 7t [place] [address] Care Team Providers Care Thermodynamics Professor Name Role Phone Sharmin Issa Primary Care Provider [phone] Edwige Garcia RN Unavailable [phone] Reason for Visit * Reason Onset Date Comments Prior Authorization 11/01/2025 Encounter Details Date Type Department Care Team ([facility] Contact Info) Description 11/01/2025 Telephone [facility] [address] [place], [place] [phone] Sharmin Issa ANP [address] [place], [place] [phone] Prior Authorization Social History Tobacco Use Types Packs/Day Years [...] encounter Miscellaneous Notes * Telephone Encounter - Naomi Hyatt - 11/04/2025 9:27 AM EST PA denial received; scanned into media and pcp notified. * Telephone Encounter - Naomi Hyatt - 11/01/2025 10:52 AM EST Bulk Filler called [facility] pharmacist/Ed, who stated pt received Ozempic 10/31/2025 and may be too early to fill Mounjaro but is expected to be true PA. PA generated in CMM. Pending decision. * Telephone Encounter - Naomi Hyatt - 11/01/2025 10:52 AM EST ----- Message from Sharmin Issa sent at 10/31/2025 4:12 PM EST ----- Please initiate PA for mounjaro. Ozempic ineffective, A1c remains above goal despite good med adherence documented in this encounter Plan of Treatment Upcoming Encounters Date Type Department Care Team (Late st Contact Info) Description 11/22/2025 4:00 PM EST Medication Management [facility] [address] [place] [address] Alvina Pickard, PharmD [address] [place] [address] 01/28/2026 1:15 PM EDT Office Visit [facility] [address] [place] [address] Sharmin Issa ANP [address] [place] [address] documented as of this encounter Goals Goal [...] Plan Patient has chronic kidney disease No HyattFranciscoNaomi Weekly blood pressure task Care Plan Weekly blood pressure task No Hyatt Naomi Weekly blood pressure task Care Plan Weekly blood pressure task No Hyatt, Naomi Patient has chronic kidney disease Care Plan Patient has chronic kidney disease No Hyatt, Naomi Patient has chronic kidney disease Care Plan Patient has chronic kidney disease No HyattFrancisco fieldNaomi Weekly blood pressure task Care Plan Weekly blood pressure task No Lang Marty Weekly blood pressure task Care Plan Weekly blood pressure task No Lang Marty Patient has chronic kidney disease Care Plan Patient has chronic kidney disease No Lang, Marty Patient has chronic kidney disease Care [...] documented as of this encounter Care Teams Thermodynamics Professor Relationship Specialty Start Date End Date Sharmin Issa ANP [address] [place] [address] PCP - General Family Medicine 07/03/21 Edwige Garcia, YENNIFER [address] [place] [address] Dishcloth Folder Family Medicine 03/12/25 documented as of this encounter
--- OUTSIDE RECORDS SUMMARY | 2025-11-04 18:59 | XMS_ITS | Encounter Summary ---
Author Organization [employer] Address [address] [facility] 7t [place] [address] Care Team Providers Care Stevedore Hold Name Role Phone Sharmin Issa Primary Care Provider [phone] Edwige Garcia RN Unavailable [phone] Reason for Visit * Reason Comments Med Refill Encounter Details Date Type Department Care Team ([facility] st Contact Info) Description 07/04/2024 Refill [facility] [address] [place], [place] [phone] Akua Benoit MD [address] [place], [place] [phone] Hypertension associated with diabetes (CMS/HCC) ([facility]/HCC) Social History Tobacco Use Types Packs/Day Years [...] Description 11/22/2025 4:00 PM EST Medication Management [address] [address] Alvina Pickard PharmD [address] [place] [address] 01/28/2026 1:15 PM EDT Office Visit [address] [address] Sharmin Issa ANP [address] [place] [address] documented as of this encounter Visit Diagnoses Diagnosis Hypertension associated with diabetes (HCC) Unspecified essential hypertension documented in this encounter Additional Health Concerns Assessment Noted Time PHQ-9 Depression Total Score: 6 04/05/20 24 1:07 PM EDT documented as of this encounter Care Teams Stevedore Hold Relationship Specialty Start Date End Date Sharmin Issa ANP [address] [place] [phone] PCP - General Family Medicine 07/03/21 Edwige Garcia, YENNIFER [address] [place] [phone] Counter Clerk [employer] Family Medicine 03/12/25 documented as of this encounter
--- OUTSIDE RECORDS SUMMARY | 2025-11-04 18:59 | XMS_ITS | Encounter Summary ---
Author Organization [employer] Address [address] [facility] 7t [place] [address] Care Team Providers Care Embossing Calender Operator Name Role Phone Sharmin Issa Primary Care Provider [phone] Edwige Garcia RN Unavailable [phone] Reason for Visit * Reason Onset Date Comments Med Refill 07/04/2024 Encounter Details Date Type Department Care Team ([facility] st Contact Info) Description 07/04/2024 Telephone [facility] [address] [place], [place] [phone] Sharmin Issa ANP [address] [place], [place] [phone] Med Refill Social History Tobacco Use Types [...] 2:22 PM EDT Medication was sent to [facility] # [id number] on 05/30/24 90 day supply. * Telephone Encounter - Raffy Tripp - 07/04/2024 2:05 PM EDT TC from pt requesting medication refill. Medications needing refill: metFORMIN (Glucophage) 1000 MG tablet To be sent to: [facility] #[id number] documented in this encounter Plan of Treatment Upcoming Encounters Date Type Department Care Team (Late st Contact Info) Description 11/22/2025 4:00 PM EST Medication Management [facility] [address] [place] [address] Alvina Pickard, JenniferD [address] [place] [address] 01/28/2026 1:15 PM EDT Office Visit [facility] [address] [place] [address] Sharmin Issa, ANP [address] [place] [address] documented as of this encounter Visit Diagnoses Not on filedocumented in this encounter Additional Health Concerns Assessment Noted Time PHQ-9 Depression Total Score: 6 04/05/20 24 1:07 PM EDT documented as of this encounter Care Teams Embossing Calender Operator Relationship Specialty Start Date End Date Sharmin Issa ANP [address] [place], [place] [phone] PCP - General Family Medicine 07/03/21 Edwige Garcia, YENNIFER [address] [place], [place] [phone] Wallpaperer Family Medicine 03/12/25 documented as of this encounter
--- OUTSIDE RECORDS SUMMARY | 2025-11-04 18:59 | XMS_ITS | Encounter Summary ---
Author Organization [employer] Address [address] [facility] [address] 7t [place] [address] Care Team Providers Care Photo Intern Name Role Phone Sharmin Issa Primary Care Provider [phone] Edwige Garcia RN Unavailable [phone] Encounter Details Date Type Department Care Team ([facility] st Contact Info) Description 11/01/2025 Telephone [facility]INE [address] [place], [place] [phone] Sharmin Issa ANP [address] [place], [place] [phone] Social History Tobacco Use Types Packs/Day Years [...] Telephone Encounter - Naomi Hyatt - 11/01/2025 10:42 AM EST PA initiated on Covermymeds for Tirzepatide (Mounjaro). Approval/denial pending. Rodriguez: [id number] * Telephone Encounter - Naomi Hyatt - 11/01/2025 10:38 AM EST ----- Message from Sharmin Issa sent at 10/31/2025 4:12 PM EST ----- Please initiate PA for mounjaro. Ozempic ineffective, A1c remains above goal despite good med adherence documented in this encounter Plan of Treatment Upcoming Encounters Date Type Department Care Team (Late st Contact Info) Description 11/22/2025 4:00 PM EST Medication Management [facility] MEDICINE [address] [place] [address] Alvina Pickard, PharmD [address] [place] [address] 01/28/2026 1:15 PM EDT Office Visit [facility] [address] [place] [address] Sharmin Issa, ANP [address] [place] [address] documented as of this encounter Goals Goal [...] has chronic kidney disease No Naomi Hyatt documented as of this encounter Visit Diagnoses [...] 11/01/2025 Patient has chronic kidney disease 11/01/2025 Assessment Noted Time PHQ-9 Depression Total Score: 0 05/10/20 25 4:10 PM EDT documented as of this encounter Care Teams Photo Intern Relationship Specialty Start Date End Date Sharmin Issa ANP [address] [place] [address] PCP - General Family Medicine 07/03/21 Edwige Garcia RN [address] [place] [address] Rail Doweling Machine Operator Family Medicine 03/12/25 documented as of this encounter
--- OUTSIDE RECORDS SUMMARY | 2025-11-04 18:59 | XMS_ITS | Encounter Summary ---
Author Organization [employer] Address [address] [facility] [address] 7[address] [place] [address] Care Team Providers Care Job Placement Officer Name Role Phone Sharmin Issa Primary Care Provider [phone] Edwige Garcia RN Unavailable [phone] Reason for Visit * Reason Onset Date Comments Referral 01/26/2024 Encounter Details Date Type Department Care Team ([facility] Contact Info) Description 01/26/2024 Telephone [facility] 230 [place], [place] [phone] Sharmin Issa ANP [address] [place], [place] [phone] Referral Social History Tobacco Use Types Packs/Day [...] a referral for [facility], stated was a recommendation from Dr Issa documented in this encounter Plan of Treatment Upcoming Encounters Date Type Department Care Team (Late st Contact Info) Description 11/22/2025 4:00 PM EST Medication Management [facility] [address] [place] [address] Alvina Pickard, PharmD [address] [place] [address] 01/28/2026 1:15 PM EDT Office Visit [facility] [address] [place] [address] Sharmin Issa ANP [address] [place] [phone] documented as of this encounter Visit Diagnoses Diagnosis Routine eye exam Examination of eyes and vision Type 2 diabetes mellitus with hyperlipidemia (HCC) Essential hypertension Unspecified essential hypertension documented in this encounter Care Teams Job Placement Officer Relationship Specialty Start Date End Date Sharmin Issa ANP [address] [place] [address] PCP - General Family Medicine 07/03/21 Edwige Garcia, YENNIFER [address] [place] [address] Shared Services Representative Family Medicine 03/12/25 documented as of this encounter
--- OUTSIDE RECORDS SUMMARY | 2025-11-04 18:59 | XMS_ITS | Encounter Summary ---
Author Organization [id number] Address [address] [place] [address] Care Team Providers Care Developer Programmer Analyst Name Role Phone Sharmin Issa Primary Care Provider [phone] Edwige Garcia RN Unavailable [phone] Reason for Visit * Reason Onset Date Comments Nurse Triage 11/04/2025 Encounter Details Date Type Department Care Team ([facility] Contact Info) Description 11/04/2025 Telephone [facility] [address] [place], [place] [phone] Sharmin Issa ANP [address] [place], [place] [phone] Nurse Triage Social History Tobacco Use Types [...] encounter Miscellaneous Notes * Telephone Encounter - Jennie Delarosa RN - 11/04/2025 2:25 PM EST Assessment: Patient presents to Walk- In [facility] c/o [...] applicable) Clear to auscultation bilaterally, Location: throughout Allergies[1] Current Medications[2] Patient Active Problem List Diagnosis Date Noted Uncontrolled type 2 diabetes mellitus with hyperglycemia (HCC) 01/16/2025 Screening for colorectal cancer 04/06/2024 Screening mammogram for breast cancer 04/06/2024 Encounter for preventive health examination 04/06/2024 Tinea pedis of both feet 04/06/2024 Essential hypertension 02/13/2023 Moderate persistent asthma without complication 02/13/2023 Type 2 diabetes mellitus with hyperlipidemia (HCC) 02/13/2023 Plan of care: Report to Edwige DE OLIVEIRA Provider evaluation: No This RN scheduled a same day appointment for 3 pm on the [place] team with Dr. Mehul Delarosa RN [1] No Known Allergies [2] Current Outpatient Medications Medication Sig Dispense Refill amLODIPine (Norvasc) 10 MG tablet Take 1 tablet (10 mg) by mouth in the morning. 90 tablet 1 atorvastatin (Lipitor) 10 MG tablet TAKE 1 [...] INTHE MORNING 90 capsule 1 Continuous Glucose Senior Examiner (FreeStyle Rohini 3 [place]) device 1 each Once per day. Use as directed for CGM 1 each 0 Continuous Glucose Sensor (FreeStyle Rohini 3 Plus Sensor) misc 1 each every 15 days. Apply 1 every 15 days as directed for CGM 2 each 11 Fluticasone-Salmeterol (Advair Diskus) 500-50 MCG/ACT aerosol powder [...] misc Use as instructed 100 each 12 Tirzepatide 5 MG/0.5ML solution auto-injector Inject 5 mg under the skin 1 (one) time per week. 2 mL 2 Tresiba FlexTouch 100 UNIT/ML injection INJECT 14 UNITS SUBCUTANEOUSLY DAILY 15 mL 11 Ventolin HFA 108 (90 Base) MCG/ACT inhaler INHALE 2 PUFFS BY MOUTH EVERY 6 HOURS NEEDED FOR WHEEZING 18 g 1 No current facility-administered medications for this visit. documented in this encounter Plan of Treatment Upcoming Encounters Date Type Department Care Team (Late st Contact Info) Description 11/22/2025 4:00 PM EST Medication Management [facility] [address] [place] [id number] Alvina Pickard, PharmD [address] [place] [address] 01/28/2026 1:15 PM EDT Office Visit [facility] [address] [place] [phone] Sharmin Issa ANP [address] [place] [address] documented as of this encounter Goals Goal [...] Plan Patient has chronic kidney disease No Hyatt Naomi Patient has chronic kidney disease Care Plan Patient has chronic kidney disease No Hyatt Naomi Weekly blood pressure task Care Plan Weekly blood pressure task No Hyatt, Naomi Weekly blood pressure task Care Plan Weekly blood pressure task No Hyatt Naomi Patient has chronic kidney disease Care Plan Patient has chronic kidney disease No HyattFrancisco fieldNaomi Patient has chronic kidney [...] documented as of this encounter Care Teams Developer Programmer Analyst Relationship Specialty Start Date End Date Sharmin Issa ANP [address] [place] [phone] PCP - General Family Medicine 07/03/21 Edwige Garcia RN [address] [place] [id number] Press Operator Family Medicine 03/12/25 documented as of this encounter
[2025-11-04 19:43] VITALS: BP 150/87; PULSE 89; RESP 17; TEMP 36.8; O2SAT 94
[2025-11-04 20:00] VITALS: BP 153/83; PULSE 84; RESP 14; O2SAT 96
--- NOTE | 2025-11-04 20:26 | PC.NURSE ---
Report taken from [facility] of pt at 1900. Pt A&Ox3 skin pwd respirations even unlabored, speaking in full clear sentences. Reports dizziness and vision changes beginning last night around 2200. Reports headache and elevated BP x 1 week. Reporting blurred vision and double vision today. Persitant symptoms. Neuros intact otherwise. Passed swallow screen. Awaiting MRI, aware of plan of care.
--- NOTE | 2025-11-04 20:44 | PC.NURSE ---
MRI screening form completed, MRI to be completed in AM, plan for admission. Pt aware and agreeable to plan of care.
--- NOTE | 2025-11-04 21:36 | PHA.MEDREC ---
Pharmacy Consult ? Medication Reconciliation Pharmacy has completed the medication reconciliation. Spoke with patient in the ED who was able to list off all medications. Patient will be switching from Ozempic to Mounjaro but using up ozempic 1st before starting Mounjaro. Takes all medications at night ( unless BID)
--- NOTE | 2025-11-04 23:01 | PM.IMHP ---
History of Present Illness Date of Service: 11/04/25 Attending physician on admission: Shanell Bynum Chief Complaint: blurred vision Patient is a 49-year-old Kinyarwanda speaking female with past medical history hypertension, IDDM II was previously on Ozempic now transitioning to Mounjaro, hyperlipidemia,UTI, fibroids, hyperlipidemia, previous tobacco user quit 2018, asthma, vitamin-D deficiency and morbid obesity was sent in by urgent care for uncontrolled hypertension, complaints of dizziness and diplopia. Patient was seen by her PCP last week for persistent headache uncontrolled with Tylenol and ibuprofen and was found to be hypertensive, systolic in the 200's. Patient was not sent to the ED or urgent care at that time as blood pressure improved while in the office. 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 Patient awakened this morning before going to work with notable dizziness and visual changes especially involving the left eye. Patient's facility supervisor at work sent pt to the urgent care and then the provider there sent her to the ED and patient was driven in by her sister. Blood pressure on arrival 237/117. Patient denies history of white coat fear or anxiety. Since arrival patient explains that her vision feels like she is cross eyed and describes pressure but no pain. Pt does see eye doctor yearly, denies hx of retinopathy secondary to DM. Work up in the ED included CT HEAD, negative for acute findings. Labs unremarkable. BG 117. Neuro exam WNL, no obvious deficits. BP has improved since arrival, 153/83. BMI 50, pt willing to speak with booking manager while admitted. Pt has been on GLP-1 to manage diabetes more so than weight loss. Review of Systems Review of Systems: Patient currently denies any chest pain, shortness of breath at rest or with exertion, nausea, vomiting, diarrhea or constipation. Patient states her left eye still feels ?cross-eyed? but denies diplopia, loss of vision or eye pain bilateral. Patient denies any issues with swallowing. No problems with speaking or expressing her thoughts. Yes all other systems are reviewed and are negative [facility] Medical History Menopause Allergic rhinitis Asthma Fibroids Diabetes 1.5, managed as type 2 HLD (hyperlipidemia) HTN (hypertension) Obesity Cognitive capacity: A/O X3 Functional capacity: independent ambulation Patient : No Social History (Updated 11/05/25 @ 00:09 by JANELL Pedraza) Alcohol intake: current Alcohol intake frequency: holidays/special occasions only Patient Tobacco Use Status: Former Tobacco user Advance Directives: No Advance Directives Information Provided: Yes Do you have a plan to hurt others: No Plan Nutrition Risks: No Nutritional Risk Patient : No Ebola Risk: Travel/Contact With Anyone From Affected Area/s: No Has Patient Experienced Ebola Symptoms: No Meds Allergies Allergy/AdvReac Type Severity Reaction Status Date / Time No Known Allergies Allergy Verified 11/04/25 16:31 Active Medications: Current Medications Acetaminophen (Acetaminophen 325 Mg Tablet) 650 mg PO Q6H PRN PRN Reason: Pain, Mild 1-3,fever,headache Albuterol/Ipratropium (Albuterol/Iprat 2.5/0.5mg 3 Ml Ampul.Neb) 3 ml INHALE Q4H PRN PRN Reason: Shortness of Breath/Wheezing Calcium Carbonate (Calcium Carbonate 750 Mg Tab.Chew) 750 mg PO Q4H PRN PRN Reason: Heartburn Enoxaparin Sodium (Enoxaparin Sodium 40 Mg/0.4 Ml Syringe) 40 mg SUBCUT Q24H ZOHRA Magnesium Hydroxide (Milk Of Magnesia 30 Ml Oral.Susp) 30 ml PO DAILY PRN PRN Reason: Constipation Melatonin (Melatonin 3 Mg Tablet) 6 mg PO BEDTIME PRN PRN Reason: Insomnia Ondansetron HCl (Ondansetron Hcl 4 Mg/2 Ml Vial) 4 mg IVPUSH Q8H PRN PRN Reason: Nausea and Vomiting Polyethylene Glycol (Polyethylene Glycol 3350 17 Gm Powd.Pack) 17 gm PO DAILY PRN PRN Reason: Constipation Senna (Sennosides 8.6 Mg Tablet) 17.2 mg PO BEDTIME ZOHRA Sodium Chloride (0.9 % Sodium Chloride Flush 3 Ml Syringe) 3 ml IVFLUSH QSHIFT ZOHRA Home Medications ?Medication ?Instructions ?Recorded ?Confirmed ?Last Taken ?Type albuterol sulfate 90 mcg/actuation 2 puff inhalation Q6H PRN 11/04/25 11/04/25 Unknown History aerosol inhaler (Ventolin HFA) Shortness Of Breath Or Wheezing amlodipine 10 mg tablet 10 mg PO BEDTIME 11/04/25 11/04/25 11/03/25 History atorvastatin 10 mg tablet 10 mg PO BEDTIME 11/04/25 11/04/25 11/03/25 History cetirizine 10 mg tablet 10 mg PO BEDTIME allergies 11/04/25 11/04/25 11/03/25 History cholecalciferol (vitamin D3) 25 25 mcg PO BEDTIME 11/04/25 11/04/25 11/03/25 History mcg (1,000 unit) tablet (Vitamin D3) fluticasone 500 mcg-salmeterol 50 1 ea inhalation BID 11/04/25 11/04/25 11/04/25 History mcg/dose blistr powdr for inhalation insulin degludec 100 unit/mL (3 14 unit subcut DAILY 11/04/25 11/04/25 11/04/25 History mL) subcutaneous pen (Tresiba FlexTouch U-100 insulin) lisinopril 20 1 tab PO BEDTIME 11/04/25 11/04/25 11/03/25 History mg-hydrochlorothiazide 12.5 mg tablet metformin 1,000 mg tablet 1,000 mg PO BID 11/04/25 11/04/25 11/04/25 History montelukast 10 mg tablet 10 mg PO BEDTIME 11/04/25 11/04/25 11/03/25 History semaglutide 1 mg/dose (4 mg/3 mL) 1 mg subcut TU@0900 11/04/25 11/04/25 10/29/25 History subcutaneous pen injector (Ozempic) vitamin B complex 1 cap PO BEDTIME 11/04/25 11/04/25 11/03/25 History Physical Exam Vital Signs and Narrative: Vital Signs: Last Vital Signs Temp 98.3 F 11/04/25 19:43 Pulse 84 11/04/25 20:00 Resp 14 11/04/25 20:00 BP 153/83 H 11/04/25 20:00 Pulse Ox 96 11/04/25 20:00 O2 Del Method Room Air 11/04/25 20:00 BMI result Body Mass Index 49.9 Alert and orientated X3, able to give good history. Neuro: CN II-X11 intact, no deficits, visual acuity intact EYES: PERRLA, EOM intact, sclerae nonicteric, conjunctiva pink ENT: hearing intact, no issues with swallowing, uvula midline, lips moist, nares patent no epistaxis Cardiac: S1 S2 RRR, no murmur, no JVD, no edema in Lower ext Pulmonary: lungs clear to auscultation B Abdominal: BS active in all 4 quadrants, no guarding, tenderness, rebounding, obese MSK: strength 5/5 upper and lower extremities : no CVA tenderness no bladder distension Extremities: no edema in lower extremities, PT and DP pulses palpable +2 Psych: mood stable, judgement and insight good Skin: No new rashes or lesions Results Labs 11/04/25 16:58 11/04/25 16:58 Labs: Laboratory Results - last 24 hr 11/04/25 11/04/25 16:58 17:04 MCV 84.3 MCH 28.0 MCHC 33.3 RDW 12.9 Plt Count 282 MPV 9.4 Immature Gran % (Auto) 0.2 Neut % (Auto) 57.3 Lymph % (Auto) 32.7 [place] % (Auto) 5.7 Eos % (Auto) 3.2 Baso % (Auto) 0.9 Lymph # (Auto) 2.8 [place] # (Auto) 0.5 Eos # (Auto) 0.3 Baso # (Auto) 0.1 Abs Immat Gran (auto) 0.02 Absolute Neuts (auto) 4.9 Absolute Nucleated RBC 0.000 Nucleated RBC % (auto) 0.0 PT 12.4 INR 1.0 APTT 29.7 Anion Gap 14 Estim Creat Clear Calc 135.6 Estimated GFR > 60 POC Glucose 100 Random Glucose 117 H Calcium 9.7 Total Bilirubin 0.5 AST 29 ALT 31 Alkaline Phosphatase 99 Troponin I High Sens < 2.7 Total Protein 7.6 Albumin 4.8 ECG Attestation: I personally reviewed and interpreted this ECG as follows: (Normal sinus rhythm QTC 445 no ischemic changes) Prior ECG tracings: available for review Imaging Radiologist's Impressions: Head CT Findings: No intra-axial mass, midline shift, hydrocephalus, or acute hemorrhage. No significant atrophy-like change or white matter disease. There is no sinus or mastoid fluid. The orbits are unremarkable. There is no acute fracture. IMPRESSION: 1. No acute intracranial findings. Assessment and Plan (1) Hypertensive urgency: Status: Acute (2) Dizziness: Status: Acute Plan Patient is a 49-year-old Kinyarwanda speaking female with past medical history hypertension, IDDM II was previously on Ozempic now transitioning to Mounjaro, hyperlipidemia,UTI, fibroids, hyperlipidemia, previous tobacco user quit 2018, asthma, vitamin-D deficiency and morbid obesity was sent in by urgent care for uncontrolled hypertension, with complaints of dizziness/ cross eyed more so than diplopia. Patient's symptoms may be more closely related to uncontrolled hypertension versus an acute neurological event. Patient being admitted under observation with the following medical problems: Hypertensive urgency/ dizziness/ rule out CVA No obvious target organ damage Cardiology consulted Blood pressure is improved since arrival, highest 237/ 113 Troponin negative, EKG negative for ischemic changes Continuing lisinopril but increasing hydrochlorothiazide to 25 mcg: Patient normally takes Prinivil 20/12.5 Patient has been on amlodipine for some time 10 mg daily, this is not a new prescription from her doctor from recent visit for headache/hypertension Dizziness is resolved Telemetry Echo planned for the a.m Workup for stroke has pending MRI. CT of the head negative and neuro exam reassuring Consult neurology if MRI is positive. Neurovascular checks q shift TSH with reflex pending Cardiac diet HLD Lipid panel pending Continue statin, adjust dose if needed IDDM Continue insulin (tresiba to lantus) Sliding scale insulin coverage Diabetic diet A1c pending in the a.m. Patient transitioning from Ozempic to Mounjaro with PCP Morbid obesity Discussed openly patient's BMI of 50 and that this is very concerning for continued health problems including uncontrolled hypertension Patient agreeable to meeting with a booking manager for education Patient plans to continue Mounjaro for diabetes management with the understanding that it kept weight loss with reportable side effects DVT prophylaxis: Lovenox Med rec completed Full code status Patient will require at least 1 overnight stay for further diagnostic testing to rule out stroke and expert consultation with Cardiology for uncontrolled hypertension and Neurology if needed. Quality Stroke Does the patient have a stroke diagnosis?: No Reason for No Anti-thrombotic by Day Two: N/A - Med Ordered VTE Prior VTE?: No VTE Risk Level:: Medical - moderate - high VTE Device Contraindication: N/A - Device Ordered VTE Drug Contraindication: N/A - Med Ordered
[2025-11-05] VITALS (11 sets, daily range): BP systolic 138–174; BP diastolic 68–89; PULSE 83–108; RESP 15–20; TEMP 36.6–37.2; O2SAT 92–97; BMI 50.0
[2025-11-05 00:27] LABS: Magnesium 1.9 mg/dL (1.6-2.6)
[2025-11-05] MEDS: 0.9 % Sodium Chloride Flush 3 ML SYRINGE IVFLUSH ×2 (00:27→09:24)
--- NOTE | 2025-11-05 00:31 | PC.NURSE ---
Pt medicated per MAR, PO fluids given at bedside, additional blanket provided. Awaiting bed assignment for admission, aware of plan of care. No change in physical assessment, denies vision changes at this time, denies pain. Will continue to monitor.
[2025-11-05 05:23] LABS: Hematocrit 39.1 % (37.0-47.0); Hemoglobin 12.9 g/dl (12.0-16.0); Imm Gran Abs Auto 0.02 X10*3/uL (0.00-0.03); Imm Gran Pct Auto 0.3 % (0.0-0.4); Lymphocytes Absolute Auto 2.7 X10*3/uL (1.2-4.9); MANUAL DIFF FLAG NO; Mean Corpuscular HGB Conc 33.0 g/dl (31.0-35.0); Mean Corpuscular Hemoglobin 27.7 pg (27.0-33.0); Mean Corpuscular Volume 84.1 fL (80.0-98.0); NRBC Abs Auto 0.000 X10*3/uL (0.0-0.012); NRBC Pct Auto 0.0 /100WBC (0.0-0.2); Platelet Count 244 X10*3/uL (160-400); Red Blood Count 4.65 X10*6/uL (4.20-5.50); White Blood Count 7.9 X10*3/uL (4.8-10.8)
--- NOTE | 2025-11-05 05:35 | PC.NURSE ---
Pt ambulatory to bathroom steady gait. Reports continued vision issues- narrowing of visual field and blurred vision. Denies pain. Neuros intact otherwise.
[2025-11-05 05:36] LABS: Alanine Aminotransferase 28 U/L (0-31); Albumin Level 4.1 g/dL (3.5-5.0); Alkaline Phosphatase 85 U/L (39-117); Anion Gap 13 (12-20); Aspartate Amino Transferase 24 U/L (5-31); Blood Urea Nitrogen 11 mg/dL (9-16); Calcium 9.1 mg/dL (8.4-10.2); Carbon Dioxide 25 mmol/L (22-29); Chloride 107 mmol/L (96-108); Creatinine Clr Calc Pharmacy 125.7; Estimated Glomerular Filt Rate > 60; Potassium 3.6 mmol/L (3.3-5.1); Sodium 141 mmol/L (135-145); Total Protein 6.5 g/dL (6.5-8.0)
[2025-11-05 06:56] LABS: Glucose, Whole Blood 152 mg/dL (60-115)
--- NOTE | 2025-11-05 07:00 | CA_ITS ---
Transthoracic Echocardiogram Patient (Last, First, Middle): Mónica Moran Ivette Gender: F Date of : 1975 Age: 49 Procedure Date: 11/05/2025 Procedure Type: Transthoracic Echocardiogram Location[place] [facility] [place] Height: 160.02 cm Weight: 127.92 kg BSA: 2.24 m2 Heart Rate: 92 bpm BP: 149 / 82 mmHg Rn Transport: TOM Curtis MD: Daisha Garcia [facility] Lumber Inspector: Otis Billy MD Symptoms: Uncontrolled HTN/CVA rule out Study Quality: Adequate ECG Rhythm: Sinus Conclusions: - 1. Normal LV ejection fraction of 65-70% with impaired relaxation filling pattern with mild asymmetric septal hypertrophy 2. Mitral annular calcification with normal cardiac valvular Dopplers 3. Normal measured RV systolic pressure 4. No gross pericardial effusion Findings Left Ventricle Normal left ventricular size, thickness, and systolic function. The visually estimated ejection fraction is between 65-70%. Spectral Doppler is indicative of an impaired relaxation filling pattern. E/E prime ratio is between 8 and 15 consistent with indeterminate filling pressures. There is mild septal asymmetric hypertrophy. Right Ventricle Normal right ventricular cavity size and systolic function. Atria Both atria are normal in size. There is no evidence of interatrial shunt by agitated saline. Aortic Valve Normal aortic valve structure and function. There is no aortic valve stenosis. There is no aortic valve regurgitation. Mitral Valve There is mild anterior and moderate posterior mitral leaflet thickening. There is moderate mitral annular calcification. There is trace mitral valve regurgitation. There is no mitral valve stenosis. Pulmonic Valve The pulmonic valve is likely normal. Tricuspid Valve Normal tricuspid valve structure. There is trace tricuspid valve regurgitation. The right ventricular systolic pressure is normal. The right ventricular systolic pressure is 28 mmHg. Normal right atrial pressure. There is no evidence of pulmonary hypertension. Great Vessels All visible segments of the aorta are normal in size. The pulmonary artery was not well visualized. There is no dilatation of the ascending aorta measuring 3.40 cm. Venous The inferior vena cava is normal in size and collapses greater than 50% with inspiration. Pericardium/Pleural There is no evidence of pericardial effusion. Prior Study Comparison No prior study available for comparison. Measurements 2D Linear Measurements IVSd: 1.34 0.6-0.9/0.6-1.0 cm LVIDd: 4.30 3.9-5.3/4.2-5.9 cm LVIDd Index: 1.92 2.4-3.2/2.2-3.1 cm/m2 LVIDs: 2.35 2.0-3.6 cm LVPWd: 0.95 0.7-1.1 cm LA Diam: 3.60 2.7-3.8/3.0-4.0 cm LAIDs Index: 1.61 1.5-2.3 cm/m2 LV Mass: 215.36 67-162/88-224 g LV Mass Index: 96.14 43-95/49-115 g/m2 LVOT Diam: 2.00 3.0+(-)1.3 cm 2D Systolic Function EF 4C: 69.70 >55% EF 2C: 65.80 >55% EF BiP: 67.80 >55% Mitral Valve MV Pk E: 0.76 MV PK A: 1.11 MV Decel Time: 209.00 E/A: 0.70 E'Lateral: 8.05 E'Medial: 5.66 E/E' Med: 13.50 E/E' Lat: 9.50 PHT: 61.00 MVA PHT: 3.61 Decel Andrew: 3.65 Aortic Valve AoV Pk Isiah: 1.52 AoV Mn Isiah: 1.20 AoV VTI: 0.27 AoV Pk Grad: 9.00 Aov Mn Grad: 6.00 LIZZETH Cont.VTI: 2.64 LVOT LVOT Pk Isiah: 1.34 LVOT Mn Isiah: 0.92 LVOT VTI: 0.23 LVOT Pk Grad: 7.00 LVOT Mn Grad: 4.00 LVOT Diam: 2.00 LVOT Area: 3.14 Diastolic Function MV Pk E: 0.76 MV Pk A: 1.11 E/A: 0.70 E'Medial: 5.66 E/E' Med: 13.50 E' Laterial: 8.05 E/E' Lat: 9.50 Right Ventricle TAPSE (mm): 25.40 TVS' Isiah: 14.00 Tricuspid Valve TR Pk Isiah: 2.23 TR Pk Grad: 20.00 RA Press: 8.00 RVSP: 28.00 Great Vessels Aorta Sinus of Valsalva: 3.00 2.0-3.5 cm Ao Asc: 3.40 2.1-3.4 cm Pulmonary Veins Pulm Vein S/D 1.60 Pulmonary Valve PV Pk Isiah: 1.02 Peak PV Grad: 4.00 Updated in Other Vendor System with Status of Final Otis Billy MD electronically signed on 11/05/2025 4:50:08 PM with status of Final
[2025-11-05 07:15] LABS: Glucose, Whole Blood 160 mg/dL (60-115)
--- NOTE | 2025-11-05 08:06 | HO.NURTONUR ---
Pt is a 49 yo female came in from home with c/o dizziness, diplopia, and h/a. Pt was seen last week by PCP for same. CT head negative. Pt to be admitted for obs pending MRI brain. PMH- ocular migraines, HTN, DM2, HLD, Asthma Neuro intact. A/ox4. C/o blurred vision once while in ED when standing. 20gRAC. VSS.
--- NOTE | 2025-11-05 09:14 | P.PNIM_ITS ---
Subjective Subjective Date of Service: 11/05/25 Interval History: Stroke less likely given stroke workup unremarkable Continues to report diplopia Cardiology consult and Neurology consulted Friend/spouse in the room with the pt during this encounter Review of Systems Review of Systems: Yes all other systems are reviewed and are negative Physical Exam 2 Exam: Exam: General: AOx3, morbid obesity, miri plethoric face Resp: CTA bilaterally CVS: S1, S2, RRR GI: +BS, NT, no distention Skin: Warm, dry Neuro: Reports diplopia L > R Psych: Appropriate affect Vital Signs: Vital Signs: Last Vital Signs Temp 98.7 F 11/05/25 08:07 Pulse 90 11/05/25 08:07 Resp 16 11/05/25 08:07 BP 144/68 H 11/05/25 08:07 Pulse Ox 92 11/05/25 08:07 O2 Del Method Room Air 11/05/25 08:07 BMI result Body Mass Index 49.9 Neuro: Other: She is alert and oriented with normal intellectual functions. Cranial nerves 2- 12 are normal. Muscle tone and strength are normal in all 4 extremities. [id number] test [id number] tests are normal. There is no nystagmus. I could not detect any definite eye movement abnormalities neither in the lateral rectus or the superior oblique. Symptomatically she appears to have either a left lateral rectus or a superior oblique weakness. Objective Data Active Medications Acetaminophen (Acetaminophen 325 Mg Tablet) 650 mg PO Q6H PRN PRN Reason: Pain, Mild 1-3,fever,headache Albuterol/Ipratropium (Albuterol/Iprat 2.5/0.5mg 3 Ml Ampul.Neb) 3 ml INHALE Q4H PRN PRN Reason: Shortness of Breath/Wheezing Amlodipine Besylate (Amlodipine Besylate 10 Mg Tablet) 10 mg PO BEDTIME [facility]; Protocol Last Admin: 11/05/25 00:27 Dose: 10 mg Documented By: TEA Atorvastatin Calcium (Atorvastatin Calcium 10 Mg Tablet) 10 mg PO BEDTIME [facility] Calcium Carbonate (Calcium Carbonate 750 Mg Tab.Chew) 750 mg PO Q4H PRN PRN Reason: Heartburn Dextrose (Dextrose 50 % 25 Gm/50 Ml Syringe) 25 gm IVPUSH Q15M PRN; Protocol PRN Reason: per Hypoglycemia Standing Ord. Enoxaparin Sodium (Enoxaparin Sodium 40 Mg/0.4 Ml Syringe) 40 mg SUBCUT Q24H [facility] Fluticasone/Vilanterol (Fluticasone/Vilanterol 200/25 Blst.W.Dev) 1 puff INHALE DAILY [facility] Glucose (Glucose Gel 15 Gm Gel..Gram.) 15 gm PO Q15M PRN; Protocol PRN Reason: per Hypoglycemia Standing Ord. Hydrochlorothiazide (Hydrochlorothiazide 25 Mg Tablet) 25 mg PO DAILY [facility]; Protocol Insulin Glargine (Insulin Glargine,Hum.Rec.Anlog 100 Unit/Ml 10 Ml Vial) 10 unit SUBCUT DAILY [facility] Insulin Human Lispro (Insulin Lispro 100 Unit/Ml 3 Ml Vial) 0 unit SUBCUT QIDACHS [facility]; Protocol Lisinopril (Lisinopril 20 Mg Tablet) 20 mg PO DAILY [facility]; Protocol Magnesium Hydroxide (Milk Of Magnesia 30 Ml Oral.Susp) 30 ml PO DAILY PRN PRN Reason: Constipation Melatonin (Melatonin 3 Mg Tablet) 6 mg PO BEDTIME PRN PRN Reason: Insomnia Metformin HCl (Metformin Hcl 1,000 Mg Tablet) 1,000 mg PO BID [facility] Montelukast Sodium (Montelukast Sodium 10 Mg Tablet) 10 mg PO BEDTIME [facility] Multivitamins/Vitamin C (Multivitamin Tablet) 1 tab PO BEDTIME [facility] Ondansetron HCl (Ondansetron Hcl 4 Mg/2 Ml Vial) 4 mg IVPUSH Q8H PRN PRN Reason: Nausea and Vomiting Polyethylene Glycol (Polyethylene Glycol 3350 17 Gm Powd.Pack) 17 gm PO DAILY PRN PRN Reason: Constipation Senna (Sennosides 8.6 Mg Tablet) 17.2 mg PO BEDTIME [facility] Sodium Chloride (0.9 % Sodium Chloride Flush 3 Ml Syringe) 3 ml IVFLUSH QSHIFT [facility] Last Admin: 11/05/25 00:27 Dose: 3 ml Documented By: TEA Vitamin D (Cholecalciferol (Vitamin D3) 25 Mcg Tablet) 25 mcg PO BEDTIME [facility] Labs 11/05/25 05:19 11/05/25 05:19 Labs: Laboratory Results - last 24 hr 11/04/25 11/04/25 11/05/25 16:58 17:04 05:19 MCV 84.3 84.1 MCH 28.0 27.7 MCHC 33.3 33.0 RDW 12.9 12.9 Plt Count 282 244 MPV 9.4 9.5 Immature Gran % (Auto) 0.2 0.3 Neut % (Auto) 57.3 53.0 Lymph % (Auto) 32.7 34.1 [place] % (Auto) 5.7 7.5 Eos % (Auto) 3.2 3.8 Baso % (Auto) 0.9 1.3 Lymph # (Auto) 2.8 2.7 [place] # (Auto) 0.5 0.6 Eos # (Auto) 0.3 0.3 Baso # (Auto) 0.1 0.1 Abs Immat Gran (auto) 0.02 0.02 Absolute Neuts (auto) 4.9 4.2 Absolute Nucleated RBC 0.000 0.000 Nucleated RBC % (auto) 0.0 0.0 PT 12.4 INR 1.0 APTT 29.7 Anion Gap 14 13 Estim Creat Clear Calc 135.6 125.7 Estimated GFR > 60 > 60 POC Glucose 100 Random Glucose 117 H 188 H Calcium 9.7 9.1 D Magnesium 1.9 Total Bilirubin 0.5 0.5 AST 29 24 ALT 31 28 Alkaline Phosphatase 99 85 Troponin I High Sens < 2.7 Total Protein 7.6 6.5 Albumin 4.8 4.1 TSH 0.94 11/05/25 11/05/25 06:51 07:12 MCV MCH MCHC RDW Plt Count MPV Immature Gran % (Auto) Neut % (Auto) Lymph % (Auto) [place] % (Auto) Eos % (Auto) Baso % (Auto) Lymph # (Auto) [place] # (Auto) Eos # (Auto) Baso # (Auto) Abs Immat Gran (auto) Absolute Neuts (auto) Absolute Nucleated RBC Nucleated RBC % (auto) PT INR APTT Anion Gap Estim Creat Clear Calc Estimated GFR POC Glucose 152 H 160 H Random Glucose Calcium Magnesium Total Bilirubin AST ALT Alkaline Phosphatase Troponin I High Sens Total Protein Albumin TSH Assessment and Plan (1) Hypertensive urgency: Status: Acute Assessment and Plan: The patient is a 49-year-old female with a history of suboptimally controlled hypertension, insulin-dependent type 2 diabetes mellitus on GLP-1 therapy, hyperlipidemia, asthma, morbid obesity, BMI 50, and prior tobacco use, presenting with hypertensive urgency manifested by severely elevated blood pressures, dizziness, and diplopia. 1. HYPERTENSIVE URGENCY The patient presented with markedly elevated blood pressure (up to 237/117) associated with neurologic symptoms of dizziness and visual disturbance, without evidence of acute end-organ damage on CT head or neurologic exam. Stroke workup CT head, MRI, CTA H&N unremarkable. Blood pressure has improved since arrival but remains above goal, warranting adjustment antihypertensive therapy. 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 VISUAL DISTURBANCE (DIPLOPIA / BLURRED VISION) Visual changes temporally associated with severe hypertension, with negative CT head and nonfocal neurologic exam, concerning for hypertensive-related visual symptoms rather than acute cerebrovascular event. -Continue blood pressure control as above -Monitor for resolution of visual symptoms with BP improvement -Recommend outpatient ophthalmology follow-up 3. TYPE 2 DIABETES MELLITUS - A1C 7.8 - Diabetes currently managed with Metformin & GLP-1 therapy, with euglycemia on presentation and no stated diabetic retinopathy. -Continue current outpatient diabetes regimen -Monitor blood glucose while admitted - Diabetic diet 4. HYPERLIPIDEMIA Chronic condition without acute issues identified during this admission. -Increase home statin therapy to 20mg 5. MORBID OBESITY BMI of 50, with patient expressing willingness to engage in dietary counseling. GLP-1 therapy primarily for diabetes management. -Nutrition consult during admission -Reinforce lifestyle modification and weight management counseling 6. ASTHMA History of asthma without acute exacerbation noted during this presentation. -Continue home asthma medications Follow-up/Disposition: Continue hosp monitoring for blood pressure control and symptom resolution. Anticipate discharge once blood pressure is stable on new regimen and visual symptoms are improving, with close outpatient follow-up with primary care. DVT px- lovenox full code This note is constructed using voice recognition software. While every effort has been made to ensure accuracy, avionics safety inspector errors may have been included. Quality Stroke Does the patient have a stroke diagnosis?: No Reason for No Anti-thrombotic by Day Two: N/A - Med Ordered VTE Prior VTE?: No VTE Risk Level:: Medical - moderate - high VTE Device Contraindication: N/A - Device Ordered VTE Drug Contraindication: N/A - Med Ordered
[2025-11-05] MEDS: Insulin Glargine,Hum.rec.anlog 100 UNIT/ML 10 ML VIAL 10 UNIT SUBCUT (09:24)
[2025-11-05] MEDS: iohexoL 350 MG/ML 100 ML INFUS..BTL IV (11:39)
[2025-11-05] MEDS: Fluticasone/Vilanterol 200/25 BLST.W.DEV 1 PUFF INHALE (11:48)
--- NOTE | 2025-11-05 12:06 | PM.CNCAR ---
History of Present Illness History of Present Illness Date of Service: 11/05/25 Requesting physician: Eileen Gordon Consult reason: other (Hypertensive urgency) Chief complaint: Rule out CVA Narrative: I was consulted to see Mónica in cardiology consultation today for hypertensive urgency. She is a 49-year-old female with longstanding history of hypertension for greater than 10 years, recently diagnose diabetes and started on GLP 1 antagonist, morbid obesity, possible sleep apnea although she says she had a test sometime back which suggestive of no sleep apnea. She said recently there was some confusion about her amlodipine because of the pharmacy and she was not getting her amlodipine adequately. 7-10 days ago she visited primary care physician at that time she was having some headaches. And at that time a blood pressure was noted to be significantly elevated. As per her no new medicines were added to her regimen. She then continued to have headaches and then developed some visual symptoms on Tuesday and then Tuesday morning when she woke up she had significant visual symptoms with blurriness and had her blood pressure checked at work and was significantly elevated and then they advised her to come to the emergency room. In the emergency room she was noted to have marked elevation of blood pressure suggestive of hypertensive urgency especially given her visual symptoms. She was then admitted after Dawson treatment in the emergency room with improved blood pressure control. Because for visual symptoms she did undergo CT scan of the head which was negative. This morning blood pressure is still elevated but not as significantly elevated test before. She has been started on hydrochlorothiazide it seems like which is a new medicine for her. She is on amlodipine 10 mg and lisinopril 20 mg. She is now having continued visual symptoms and MRI has been requested. She does not exercise on a regular basis but denies any cardiac symptoms exertional chest pain, shortness of breath, orthopnea, PND. She does have symptoms of fatigue when she wakes up in the morning as well as daytime somnolence and significant snoring at nighttime in his witnessed by her . Review of Systems Constitutional: Constitutional: Reports fatigue, Reports headache(s), Reports snoring and Reports weight gain Eyes: Eyes: Reports no additional eye complaints ENT: Reports headache(s) Cardiovascular: Cardiovascular: Reports no additional cardiovascular complaints Respiratory: Respiratory: Reports no additional respiratory complaints and Reports snoring Gastrointestinal: Gastrointestinal: Reports no additional gastrointestinal complaints Genitourinary: Genitourinary: Reports no additional female genitourinary complaints Musculoskeletal: Musculoskeletal: Reports no additional musculoskeletal complaints Neurologic: Reports headache(s) and Reports Other visual disturbances Psychiatric: Psychiatric: Reports no additional psychiatric complaints Endocrine: Endocrine: Reports no additional endocrine complaints and Reports fatigue PMFSH Past Medical History Medical History Menopause Allergic rhinitis Asthma Fibroids Diabetes 1.5, managed as type 2 HLD (hyperlipidemia) HTN (hypertension) Obesity Social History Social History Household Members: Spouse Housing: House Do you presently have visiting nurse or other home services: No Alcohol intake: current Alcohol intake frequency: holidays/special occasions only Patient Tobacco Use Status: Former Tobacco user Have you been hit, kicked, punched, or otherwise hurt by someone within the past year? If so, by whom?: No Do you feel safe in your current relationship?: Yes Is there a partner from a previous relationship who is making you feel unsafe now?: No Are you made to feel afraid or neglected: No Catholic Healthcare Practices: mormon Advance Directives: No Advance Directives Information Provided: Yes Do you have a plan to hurt others: No Plan Recently lost weight without trying: No Eating poorly because of decreased appetite: No Nutrition Risks: No Nutritional Risk Patient : No : No Poor oral hygiene: No Travel History Ebola Risk: Travel/Contact With Anyone From Affected Area/s: No Has Patient Experienced Ebola Symptoms: No Meds Allergies Allergy/AdvReac Type Severity Reaction Status Date / Time No Known Allergies Allergy Verified 11/04/25 16:31 Active Medications: Current Medications Acetaminophen (Acetaminophen 325 Mg Tablet) 650 mg PO Q6H PRN PRN Reason: Pain, Mild 1-3,fever,headache Albuterol/Ipratropium (Albuterol/Iprat 2.5/0.5mg 3 Ml Ampul.Neb) 3 ml INHALE Q4H PRN PRN Reason: Shortness of Breath/Wheezing Amlodipine Besylate (Amlodipine Besylate 10 Mg Tablet) 10 mg PO BEDTIME [facility]; Protocol Last Admin: 11/05/25 00:27 Dose: 10 mg Atorvastatin Calcium (Atorvastatin Calcium 10 Mg Tablet) 10 mg PO BEDTIME [facility] Calcium Carbonate (Calcium Carbonate 750 Mg Tab.Chew) 750 mg PO Q4H PRN PRN Reason: Heartburn Dextrose (Dextrose 50 % 25 Gm/50 Ml Syringe) 25 gm IVPUSH Q15M PRN; Protocol PRN Reason: per Hypoglycemia Standing Ord. Enoxaparin Sodium (Enoxaparin Sodium 40 Mg/0.4 Ml Syringe) 40 mg SUBCUT Q24H [facility] Last Admin: 11/05/25 09:23 Dose: 40 mg Fluticasone/Vilanterol (Fluticasone/Vilanterol 200/25 Blst.W.Dev) 1 puff INHALE DAILY [facility] Last Admin: 11/05/25 11:48 Dose: 1 puff Glucose (Glucose Gel 15 Gm Gel..Gram.) 15 gm PO Q15M PRN; Protocol PRN Reason: per Hypoglycemia Standing Ord. Hydrochlorothiazide (Hydrochlorothiazide 25 Mg Tablet) 25 mg PO DAILY [facility]; Protocol Last Admin: 11/05/25 09:23 Dose: 25 mg Insulin Glargine (Insulin Glargine,Hum.Rec.Anlog 100 Unit/Ml 10 Ml Vial) 10 unit SUBCUT DAILY [facility] Last Admin: 11/05/25 09:24 Dose: 10 unit Insulin Human Lispro (Insulin Lispro 100 Unit/Ml 3 Ml Vial) 0 unit SUBCUT QIDACHS [facility]; Protocol Last Admin: 11/05/25 09:24 Dose: 2 unit Lisinopril (Lisinopril 20 Mg Tablet) 20 mg PO DAILY [facility]; Protocol Last Admin: 11/05/25 09:23 Dose: 20 mg Magnesium Hydroxide (Milk Of Magnesia 30 Ml Oral.Susp) 30 ml PO DAILY PRN PRN Reason: Constipation Melatonin (Melatonin 3 Mg Tablet) 6 mg PO BEDTIME PRN PRN Reason: Insomnia Metformin HCl (Metformin Hcl 1,000 Mg Tablet) 1,000 mg PO BID [facility] Last Admin: 11/05/25 09:23 Dose: 1,000 mg Montelukast Sodium (Montelukast Sodium 10 Mg Tablet) 10 mg PO BEDTIME [facility] Multivitamins/Vitamin C (Multivitamin Tablet) 1 tab PO BEDTIME [facility] Ondansetron HCl (Ondansetron Hcl 4 Mg/2 Ml Vial) 4 mg IVPUSH Q8H PRN PRN Reason: Nausea and Vomiting Polyethylene Glycol (Polyethylene Glycol 3350 17 Gm Powd.Pack) 17 gm PO DAILY PRN PRN Reason: Constipation Senna (Sennosides 8.6 Mg Tablet) 17.2 mg PO BEDTIME [facility] Sodium Chloride (0.9 % Sodium Chloride Flush 3 Ml Syringe) 3 ml IVFLUSH QSHIFT [facility] Last Admin: 11/05/25 09:24 Dose: 3 ml Vitamin D (Cholecalciferol (Vitamin D3) 25 Mcg Tablet) 25 mcg PO BEDTIME [facility] Home Medications ?Medication ?Instructions ?Recorded ?Confirmed ?Last Taken ?Type albuterol sulfate 90 mcg/actuation 2 puff inhalation Q6H PRN 11/04/25 11/04/25 Unknown History aerosol inhaler (Ventolin HFA) Shortness Of Breath Or Wheezing amlodipine 10 mg tablet 10 mg PO BEDTIME 11/04/25 11/04/25 11/03/25 History atorvastatin 10 mg tablet 10 mg PO BEDTIME 11/04/25 11/04/25 11/03/25 History cetirizine 10 mg tablet 10 mg PO BEDTIME allergies 11/04/25 11/04/25 11/03/25 History cholecalciferol (vitamin D3) 25 25 mcg PO BEDTIME 11/04/25 11/04/25 11/03/25 History mcg (1,000 unit) tablet (Vitamin D3) fluticasone 500 mcg-salmeterol 50 1 ea inhalation BID 11/04/25 11/04/25 11/04/25 History mcg/dose blistr powdr for inhalation insulin degludec 100 unit/mL (3 14 unit subcut DAILY 11/04/25 11/04/25 11/04/25 History mL) subcutaneous pen (Tresiba FlexTouch U-100 insulin) lisinopril 20 1 tab PO BEDTIME 11/04/25 11/04/25 11/03/25 History mg-hydrochlorothiazide 12.5 mg tablet metformin 1,000 mg tablet 1,000 mg PO BID 11/04/25 11/04/25 11/04/25 History montelukast 10 mg tablet 10 mg PO BEDTIME 11/04/25 11/04/25 11/03/25 History semaglutide 1 mg/dose (4 mg/3 mL) 1 mg subcut TU@0900 11/04/25 11/04/25 10/29/25 History subcutaneous pen injector (Ozempic) vitamin B complex 1 cap PO BEDTIME 11/04/25 11/04/25 11/03/25 History Physical Exam Vital Signs: Vital Signs: Last Vital Signs Temp 98.2 F 11/05/25 09:27 Pulse 98 11/05/25 11:50 Resp 17 11/05/25 11:50 BP 164/88 H 11/05/25 09:27 Pulse Ox 94 11/05/25 09:27 O2 Del Method Room Air 11/05/25 09:27 BMI result Body Mass Index 50.0 Objective Labs and Meds 11/05/25 05:19 11/05/25 05:19 Lab results: Laboratory Results - last 24 hr 11/04/25 11/04/25 11/05/25 16:58 17:04 05:19 WBC 8.5 7.9 RBC 5.03 4.65 Hgb 14.1 12.9 Hct 42.4 39.1 MCV 84.3 84.1 MCH 28.0 27.7 MCHC 33.3 33.0 RDW 12.9 12.9 Plt Count 282 244 MPV 9.4 9.5 Immature Gran % (Auto) 0.2 0.3 Neut % (Auto) 57.3 53.0 Lymph % (Auto) 32.7 34.1 [place] % (Auto) 5.7 7.5 Eos % (Auto) 3.2 3.8 Baso % (Auto) 0.9 1.3 Lymph # (Auto) 2.8 2.7 [place] # (Auto) 0.5 0.6 Eos # (Auto) 0.3 0.3 Baso # (Auto) 0.1 0.1 Abs Immat Gran (auto) 0.02 0.02 Absolute Neuts (auto) 4.9 4.2 Absolute Nucleated RBC 0.000 0.000 Nucleated RBC % (auto) 0.0 0.0 PT 12.4 INR 1.0 APTT 29.7 Sodium 142 141 Potassium 4.0 3.6 Chloride 104 107 Carbon Dioxide 28 25 Anion Gap 14 13 BUN 8 L 11 Creatinine 0.64 0.69 Estim Creat Clear Calc 135.6 125.7 Estimated GFR > 60 > 60 POC Glucose 100 Random Glucose 117 H 188 H Calcium 9.7 9.1 D Magnesium 1.9 Total Bilirubin 0.5 0.5 AST 29 24 ALT 31 28 Alkaline Phosphatase 99 85 Troponin I High Sens < 2.7 Total Protein 7.6 6.5 Albumin 4.8 4.1 TSH 0.94 11/05/25 11/05/25 06:51 07:12 WBC RBC Hgb Hct MCV MCH MCHC RDW Plt Count MPV Immature Gran % (Auto) Neut % (Auto) Lymph % (Auto) [place] % (Auto) Eos % (Auto) Baso % (Auto) Lymph # (Auto) [place] # (Auto) Eos # (Auto) Baso # (Auto) Abs Immat Gran (auto) Absolute Neuts (auto) Absolute Nucleated RBC Nucleated RBC % (auto) PT INR APTT Sodium Potassium Chloride Carbon Dioxide Anion Gap BUN Creatinine Estim Creat Clear Calc Estimated GFR POC Glucose 152 H 160 H Random Glucose Calcium Magnesium Total Bilirubin AST ALT Alkaline Phosphatase Troponin I High Sens Total Protein Albumin TSH Imaging Radiologist's impression: Impressions Brain MRI 11/05/25 10:39 IMPRESSION: Bilateral chronic maxillary sinus inflammatory changes otherwise unremarkable MRI brain without contrast. Electronically signed by: Yovani Kumar MD 11/05/2025 11:31 AM [facility] Assessment and Plan (1) Hypertensive urgency: Status: Acute Hypertensive urgency in his middle-aged female with longstanding history of hypertension. Question decompensation related to inadequate dosing of amlodipine as outpatient this is unclear. Also could be progressive hypertension. Consider renal artery duplex to rule out fibromuscular dysplasia. Also high likelihood of underlying obstructive sleep apnea and this should be ruled out as outpatient with in-lab study. Discussed about management of hypertension. Agree with addition of hydrochlorothiazide. I would increase her lisinopril to 20 mg b.i.d. and continue with amlodipine therapy. Low-salt diet was discussed. In the long run she would benefit from aggressive and progressive weight loss program. She understands and agrees. Agree with echocardiogram. She has persistent visual/neurologic symptoms and should consider neurology consultation. Will sign of the case. Thank you for allowing me to partake in her care Procedures Date of Service Date of Service: 11/05/25
[2025-11-05 12:10] LABS: Glucose, Whole Blood 165 mg/dL (60-115)
[2025-11-05 12:44] LABS: Venous Blood Gas Refer to POC result
[2025-11-05 12:45] LABS: VBG HCO3 32 mmol/L (22-26); VBG O2 % Saturation 45.0 %
--- NOTE | 2025-11-05 13:21 | PM.NEUROCN ---
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 Patient was seen by her PCP last week for persistent headache uncontrolled with Tylenol and ibuprofen and was found to be hypertensive, systolic in the 200's. Patient awakened this morning before going to work with notable dizziness and visual changes especially involving the left eye. 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 Blood pressure on arrival 237/117. MRI of the brain shows no acute infarct. There is chronic bilateral maxillary sinusitis. CTA of the head and neck are unremarkable. Her dizziness has subsided. She now says that when she looks to the left side only there is a slight splinting of the vision otherwise the vision is normal. [facility] Past Medical History Medical History Menopause Allergic rhinitis Asthma Fibroids Diabetes 1.5, managed as type 2 HLD (hyperlipidemia) HTN (hypertension) Obesity Social History Social History Household Members: Spouse Housing: House Do you presently have visiting nurse or other home services: No Alcohol intake: current Alcohol intake frequency: holidays/special occasions only Patient Tobacco Use Status: Former Tobacco user service: No Travel History Ebola Risk: Travel/Contact With Anyone From Affected Area/s: No Has Patient Experienced Ebola Symptoms: No Meds Allergies Allergy/AdvReac Type Severity Reaction Status Date / Time No Known Allergies Allergy Verified 11/04/25 16:31 Active Medications: Current Medications Acetaminophen (Acetaminophen 325 Mg Tablet) 650 mg PO Q6H PRN PRN Reason: Pain, Mild 1-3,fever,headache Albuterol/Ipratropium (Albuterol/Iprat 2.5/0.5mg 3 Ml Ampul.Neb) 3 ml INHALE Q4H PRN PRN Reason: Shortness of Breath/Wheezing Amlodipine Besylate (Amlodipine Besylate 10 Mg Tablet) 10 mg PO BEDTIME [facility]; Protocol Last Admin: 11/05/25 00:27 Dose: 10 mg Atorvastatin Calcium (Atorvastatin Calcium 10 Mg Tablet) 10 mg PO BEDTIME [facility] Calcium Carbonate (Calcium Carbonate 750 Mg Tab.Chew) 750 mg PO Q4H PRN PRN Reason: Heartburn Dextrose (Dextrose 50 % 25 Gm/50 Ml Syringe) 25 gm IVPUSH Q15M PRN; Protocol PRN Reason: per Hypoglycemia Standing Ord. Enoxaparin Sodium (Enoxaparin Sodium 40 Mg/0.4 Ml Syringe) 40 mg SUBCUT Q24H [facility] Last Admin: 11/05/25 09:23 Dose: 40 mg Fluticasone/Vilanterol (Fluticasone/Vilanterol 200/25 Blst.W.Dev) 1 puff INHALE DAILY [facility] Last Admin: 11/05/25 11:48 Dose: 1 puff Glucose (Glucose Gel 15 Gm Gel..Gram.) 15 gm PO Q15M PRN; Protocol PRN Reason: per Hypoglycemia Standing Ord. Hydrochlorothiazide (Hydrochlorothiazide 25 Mg Tablet) 25 mg PO DAILY [facility]; Protocol Last Admin: 11/05/25 09:23 Dose: 25 mg Insulin Glargine (Insulin Glargine,Hum.Rec.Anlog 100 Unit/Ml 10 Ml Vial) 10 unit SUBCUT DAILY [facility] Last Admin: 11/05/25 09:24 Dose: 10 unit Insulin Human Lispro (Insulin Lispro 100 Unit/Ml 3 Ml Vial) 0 unit SUBCUT QIDACHS [facility]; Protocol Last Admin: 11/05/25 12:18 Dose: 2 unit Lisinopril (Lisinopril 20 Mg Tablet) 20 mg PO DAILY [facility]; Protocol Last Admin: 11/05/25 09:23 Dose: 20 mg Magnesium Hydroxide (Milk Of Magnesia 30 Ml Oral.Susp) 30 ml PO DAILY PRN PRN Reason: Constipation Melatonin (Melatonin 3 Mg Tablet) 6 mg PO BEDTIME PRN PRN Reason: Insomnia Metformin HCl (Metformin Hcl 1,000 Mg Tablet) 1,000 mg PO BID [facility] Last Admin: 11/05/25 09:23 Dose: 1,000 mg Montelukast Sodium (Montelukast Sodium 10 Mg Tablet) 10 mg PO BEDTIME [facility] Multivitamins/Vitamin C (Multivitamin Tablet) 1 tab PO BEDTIME [facility] Ondansetron HCl (Ondansetron Hcl 4 Mg/2 Ml Vial) 4 mg IVPUSH Q8H PRN PRN Reason: Nausea and Vomiting Polyethylene Glycol (Polyethylene Glycol 3350 17 Gm Powd.Pack) 17 gm PO DAILY PRN PRN Reason: Constipation Senna (Sennosides 8.6 Mg Tablet) 17.2 mg PO BEDTIME [facility] Sodium Chloride (0.9 % Sodium Chloride Flush 3 Ml Syringe) 3 ml IVFLUSH QSHIFT [facility] Last Admin: 11/05/25 09:24 Dose: 3 ml Vitamin D (Cholecalciferol (Vitamin D3) 25 Mcg Tablet) 25 mcg PO BEDTIME [facility] Home Medications ?Medication ?Instructions ?Recorded ?Confirmed ?Last Taken ?Type albuterol sulfate 90 mcg/actuation 2 puff inhalation Q6H PRN 11/04/25 11/04/25 Unknown History aerosol inhaler (Ventolin HFA) Shortness Of Breath Or Wheezing amlodipine 10 mg tablet 10 mg PO BEDTIME 11/04/25 11/04/25 11/03/25 History atorvastatin 10 mg tablet 10 mg PO BEDTIME 11/04/25 11/04/25 11/03/25 History cetirizine 10 mg tablet 10 mg PO BEDTIME allergies 11/04/25 11/04/25 11/03/25 History cholecalciferol (vitamin D3) 25 25 mcg PO BEDTIME 11/04/25 11/04/25 11/03/25 History mcg (1,000 unit) tablet (Vitamin D3) fluticasone 500 mcg-salmeterol 50 1 ea inhalation BID 11/04/25 11/04/25 11/04/25 History mcg/dose blistr powdr for inhalation insulin degludec 100 unit/mL (3 14 unit subcut DAILY 11/04/25 11/04/25 11/04/25 History mL) subcutaneous pen (Tresiba FlexTouch U-100 insulin) lisinopril 20 1 tab PO BEDTIME 11/04/25 11/04/25 11/03/25 History mg-hydrochlorothiazide 12.5 mg tablet metformin 1,000 mg tablet 1,000 mg PO BID 11/04/25 11/04/25 11/04/25 History montelukast 10 mg tablet 10 mg PO BEDTIME 11/04/25 11/04/25 11/03/25 History semaglutide 1 mg/dose (4 mg/3 mL) 1 mg subcut TU@0900 11/04/25 11/04/25 10/29/25 History subcutaneous pen injector (Ozempic) vitamin B complex 1 cap PO BEDTIME 11/04/25 11/04/25 11/03/25 History Physical Exam Vital Signs: Vital Signs: Last Vital Signs Temp 97.9 F 11/05/25 12:00 Pulse 108 H 11/05/25 12:00 Resp 20 11/05/25 12:00 BP 174/82 H 11/05/25 12:00 Pulse Ox 94 11/05/25 12:00 O2 Del Method Room Air 11/05/25 12:00 BMI result Body Mass Index 50.0 Neuro: Other: She is alert and oriented with normal intellectual functions. Cranial nerves 2-12 are normal. Muscle tone and strength are normal in all 4 extremities. Ipgdmy-if-otzs test tite-vzki-yeza tests are normal. There is no nystagmus. I could not detect any definite eye movement abnormalities neither in the lateral rectus or the superior oblique. Symptomatically she appears to have either a left lateral rectus or a superior oblique weakness. Results Labs 11/05/25 05:19 11/05/25 05:19 Labs: Short CBC 11/04/25 11/05/25 Range/Units 16:58 05:19 WBC 8.5 7.9 (4.8-10.8) X10*3/uL Hgb 14.1 12.9 (12.0-16.0) g/dl Hct 42.4 39.1 (37.0-47.0) % Plt Count 282 244 (160-400) X10*3/uL BMP 11/04/25 11/05/25 16:58 05:19 Sodium 142 141 Potassium 4.0 3.6 Chloride 104 107 Carbon Dioxide 28 25 BUN 8 L 11 Creatinine 0.64 0.69 Calcium 9.7 9.1 D Liver Function 11/04/25 11/05/25 Range/Units 16:58 05:19 Total Bilirubin 0.5 0.5 (0.0-1.0) mg/dL AST 29 24 (5-31) U/L ALT 31 28 (0-31) U/L Alkaline Phosphatase 99 85 (39-117) U/L Albumin 4.8 4.1 (3.5-5.0) g/dL Assessment and Plan (1) Hypertensive urgency: Status: Acute Control of blood pressure. (2) Diplopia: Status: Acute No evidence of stroke. This could be a mild diabetic neuropathy involving the left 6th nerve or the superior oblique because she reports some symptoms on left lateral gaze with the images splinting slightly. There is no overt weakness in the extraocular movements. Recommendations: Control of blood pressure and sugar. She has been advised to move her head to the left side if she sees double or to close 1 eye. I expect this will resolve. She can have an outpatient ophthalmology evaluation. Procedures Date of Service Date of Service: 11/05/25
--- NOTE | 2025-11-05 14:07 | MHC.CM.PN ---
Teresita 11/05/25, Pt. lives with her spouse, she does not use home health services, she has diabetic supplies for DME. PCP is confirmed: Sharmin Issa MD, HCP form to be completed here and added to chart. to bring her home at DC, DCP: home, self care, CM to follow for DC needs.
[2025-11-05 16:23] LABS: Glucose, Whole Blood 124 mg/dL (60-115)
[2025-11-05 19:45] LABS: Cholesterol 112 mg/dL (<200); HDL Cholesterol 33 mg/dL (>40); Triglycerides 127 mg/dL (<150)
[2025-11-05 19:55] LABS: Glucose, Whole Blood 186 mg/dL (60-115)
[2025-11-06] VITALS: PULSE 84; RESP 19; TEMP 36.6
[2025-11-06] MEDS: 0.9 % Sodium Chloride Flush 3 ML SYRINGE IVFLUSH (00:18)
[2025-11-06 03:59] VITALS: BP 132/78; PULSE 90; RESP 18; TEMP 36.7; O2SAT 95
--- NOTE | 2025-11-06 07:18 | HO.PM.IMPN ---
Subjective Subjective Date of Service: 11/06/25 Physical Exam Vital Signs: Vital Signs: Last Vital Signs Temp 98.0 F 11/06/25 03:59 Pulse 90 11/06/25 03:59 Resp 18 11/06/25 03:59 BP 132/78 11/06/25 03:59 Pulse Ox 95 11/06/25 03:59 O2 Del Method Room Air 11/06/25 03:59 BMI result Body Mass Index 50.0 Objective Data Active Medications Acetaminophen (Acetaminophen 325 Mg Tablet) 650 mg PO Q6H PRN PRN Reason: Pain, Mild 1-3,fever,headache Albuterol/Ipratropium (Albuterol/Iprat 2.5/0.5mg 3 Ml Ampul.Neb) 3 ml INHALE Q4H PRN PRN Reason: Shortness of Breath/Wheezing Amlodipine Besylate (Amlodipine Besylate 10 Mg Tablet) 10 mg PO BEDTIME [facility]; Protocol Last Admin: 11/05/25 21:52 Dose: 10 mg Documented By: JONATAN Atorvastatin Calcium (Atorvastatin Calcium 20 Mg Tablet) 20 mg PO BEDTIME [facility] Last Admin: 11/05/25 21:52 Dose: 20 mg Documented By: JONATAN Calcium Carbonate (Calcium Carbonate 750 Mg Tab.Chew) 750 mg PO Q4H PRN PRN Reason: Heartburn Dextrose (Dextrose 50 % 25 Gm/50 Ml Syringe) 25 gm IVPUSH Q15M PRN; Protocol PRN Reason: per Hypoglycemia Standing Ord. Enoxaparin Sodium (Enoxaparin Sodium 40 Mg/0.4 Ml Syringe) 40 mg SUBCUT Q24H [facility] Last Admin: 11/05/25 09:23 Dose: 40 mg Documented By: ANDREW Fluticasone/Vilanterol (Fluticasone/Vilanterol 200/25 Blst.W.Dev) 1 puff INHALE DAILY [facility] Last Admin: 11/05/25 11:48 Dose: 1 puff Documented By: ANSELMO Glucose (Glucose Gel 15 Gm Gel..Gram.) 15 gm PO Q15M PRN; Protocol PRN Reason: per Hypoglycemia Standing Ord. Hydrochlorothiazide (Hydrochlorothiazide 50 Mg Tablet) 50 mg PO DAILY [facility]; Protocol Insulin Glargine (Insulin Glargine,Hum.Rec.Anlog 100 Unit/Ml 10 Ml Vial) 10 unit SUBCUT DAILY [facility] Last Admin: 11/05/25 09:24 Dose: 10 unit Documented By: ANDREW Insulin Human Lispro (Insulin Lispro 100 Unit/Ml 3 Ml Vial) 0 unit SUBCUT QIDACHS [facility]; Protocol Last Admin: 11/05/25 21:51 Dose: 2 unit Documented By: JONATAN Lisinopril (Lisinopril 20 Mg Tablet) 20 mg PO DAILY [facility]; Protocol Last Admin: 11/05/25 09:23 Dose: 20 mg Documented By: ANDREW Magnesium Hydroxide (Milk Of Magnesia 30 Ml Oral.Susp) 30 ml PO DAILY PRN PRN Reason: Constipation Melatonin (Melatonin 3 Mg Tablet) 6 mg PO BEDTIME PRN PRN Reason: Insomnia Metformin HCl (Metformin Hcl 1,000 Mg Tablet) 1,000 mg PO BID [facility] Last Admin: 11/05/25 21:52 Dose: 1,000 mg Documented By: JONATAN Montelukast Sodium (Montelukast Sodium 10 Mg Tablet) 10 mg PO BEDTIME [facility] Last Admin: 11/05/25 21:52 Dose: 10 mg Documented By: JONATAN Multivitamins/Vitamin C (Multivitamin Tablet) 1 tab PO BEDTIME [facility] Last Admin: 11/05/25 21:53 Dose: 1 tab Documented By: JONATAN Ondansetron HCl (Ondansetron Hcl 4 Mg/2 Ml Vial) 4 mg IVPUSH Q8H PRN PRN Reason: Nausea and Vomiting Polyethylene Glycol (Polyethylene Glycol 3350 17 Gm Powd.Pack) 17 gm PO DAILY PRN PRN Reason: Constipation Senna (Sennosides 8.6 Mg Tablet) 17.2 mg PO BEDTIME [facility] Last Admin: 11/05/25 21:55 Dose: Not Given Documented By: JONATAN Non-Admin Reason: Patient Refused Sodium Chloride (0.9 % Sodium Chloride Flush 3 Ml Syringe) 3 ml IVFLUSH QSHIFT [facility] Last Admin: 11/06/25 00:18 Dose: 3 ml Documented By: JONATAN Vitamin D (Cholecalciferol (Vitamin D3) 25 Mcg Tablet) 25 mcg PO BEDTIME [facility] Last Admin: 11/05/25 21:53 Dose: 25 mcg Documented By: JONATAN Labs 11/05/25 05:19 11/05/25 05:19 Labs: Laboratory Results - last 24 hr 11/05/25 11/05/25 11/05/25 05:19 12:06 12:40 VBG pH 7.41 VBG pCO2 49 VBG pO2 30 VBG HCO3 32 H VBG O2 Saturation 45.0 VBG Base Excess 6.2 POC Glucose 165 H Estimat Average Glucose 177 Hemoglobin A1c % 7.8 H Triglycerides Cholesterol LDL Cholesterol, Calc HDL Cholesterol 11/05/25 11/05/25 11/05/25 16:14 19:08 19:44 VBG pH VBG pCO2 VBG pO2 VBG HCO3 VBG O2 Saturation VBG Base Excess POC Glucose 124 H 186 H Estimat Average Glucose Hemoglobin A1c % Triglycerides 127 Cholesterol 112 LDL Cholesterol, Calc 54 HDL Cholesterol 33 L Quality Stroke Does the patient have a stroke diagnosis?: No Reason for No Anti-thrombotic by Day Two: N/A - Med Ordered VTE Prior VTE?: No VTE Risk Level:: Medical - moderate - high VTE Device Contraindication: N/A - Device Ordered VTE Drug Contraindication: N/A - Med Ordered
[2025-11-06 08:00] VITALS: BP 139/82; PULSE 92; RESP 19; TEMP 36.5; O2SAT 93
[2025-11-06] MEDS: Fluticasone/Vilanterol 200/25 BLST.W.DEV 1 PUFF INHALE (08:02)
[2025-11-06 08:04] VITALS: PULSE 88; RESP 16; O2SAT 96
[2025-11-06] MEDS: Insulin Glargine,Hum.rec.anlog 100 UNIT/ML 10 ML VIAL 10 UNIT SUBCUT (08:14)
[2025-11-06 08:21] LABS: Glucose, Whole Blood 154 mg/dL (60-115)
[2025-11-06 08:49] LABS: MANUAL DIFF FLAG NO
[2025-11-06 08:52] LABS: Hematocrit 44.5 % (37.0-47.0); Hemoglobin 14.5 g/dl (12.0-16.0); Imm Gran Abs Auto 0.03 X10*3/uL (0.00-0.03); Imm Gran Pct Auto 0.3 % (0.0-0.4); Lymphocytes Absolute Auto 2.9 X10*3/uL (1.2-4.9); Mean Corpuscular HGB Conc 32.6 g/dl (31.0-35.0); Mean Corpuscular Hemoglobin 27.4 pg (27.0-33.0); Mean Corpuscular Volume 84.1 fL (80.0-98.0); NRBC Abs Auto 0.000 X10*3/uL (0.0-0.012); NRBC Pct Auto 0.0 /100WBC (0.0-0.2); Platelet Count 304 X10*3/uL (160-400); Red Blood Count 5.29 X10*6/uL (4.20-5.50); White Blood Count 9.1 X10*3/uL (4.8-10.8)
[2025-11-06 09:06] LABS: Albumin Level 4.7 g/dL (3.5-5.0); Alkaline Phosphatase 95 U/L (39-117); Anion Gap 16 (12-20); Aspartate Amino Transferase 32 U/L (5-31); Blood Urea Nitrogen 11 mg/dL (9-16); Calcium 9.8 mg/dL (8.4-10.2); Carbon Dioxide 25 mmol/L (22-29); Chloride 102 mmol/L (96-108); Creatinine Clr Calc Pharmacy 127.7; Estimated Glomerular Filt Rate > 60; Magnesium 2.0 mg/dL (1.6-2.6); Potassium 4.0 mmol/L (3.3-5.1); Sodium 139 mmol/L (135-145); Total Protein 7.6 g/dL (6.5-8.0)
[2025-11-06 09:19] LABS: Alanine Aminotransferase 36 U/L (0-31)
--- NOTE | 2025-11-06 11:22 | MHC.CM.PN ---
PER PT TO BE MEDICALLY CLEARED FOR DC HOME SELF CARE W/ FOR TRANSPORT. PT CLEARED BY OT/PT
[2025-11-06 11:39] LABS: Glucose, Whole Blood 181 mg/dL (60-115)
[2025-11-06 11:47] VITALS: PULSE 110; RESP 20; TEMP 36.2; O2SAT 94
--- NOTE | 2025-11-06 12:58 | PM.DS ---
DS: Providers Provider Date of admission: 11/04/25 22:57 Date of discharge: 11/06/25 Primary care physician: Sharmin Issa NP Consults: 11/05/25 00:22 Consult to Cardiology Routine Consulting Provider: [facility] [place] [facility] Reason for consultation: HTN urgency (recent uncontrolled BP), rule out CVA Has provider been notified: No 11/05/25 11:55 Consult to Neurology Routine Consulting Provider: [facility] Reason for consultation: stroke/tia like symptoms POA DS: Diagnosis Discharge Diagnosis (1) Hypertensive urgency: Status: Acute DS: Summary Hospital Course Hospital Course: Per H&P: Chief Complaint: blurred vision Patient is a 49-year-old Citizen Of [place] speaking female with past medical history hypertension, IDDM II was previously on Ozempic now transitioning to Mounjaro, hyperlipidemia,UTI, fibroids, hyperlipidemia, previous tobacco user quit 2018, asthma, vitamin-D deficiency and morbid obesity was sent in by urgent care for uncontrolled hypertension, complaints of dizziness and diplopia. Patient was seen by her PCP last week for persistent headache uncontrolled with Tylenol and ibuprofen and was found to be hypertensive, systolic in the 200's. Patient was not sent to the ED or urgent care at that time as blood pressure improved while in the office. 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 Patient awakened this morning before going to work with notable dizziness and visual changes especially involving the left eye. 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 Blood pressure on arrival 237/117. Patient denies history of white coat fear or anxiety. Since arrival patient explains that her vision feels like she is cross eyed and describes pressure but no pain. Pt does see eye doctor yearly, denies hx of retinopathy secondary to DM. Work up in the ED included CT HEAD, negative for acute findings. Labs unremarkable. BG 117. Neuro exam WNL, no obvious deficits. BP has improved since arrival, 153/83. BMI 50, pt willing to speak with modeling agent while admitted. Pt has been on GLP-1 to manage diabetes more so than weight loss. Hospital course: Discharge Summary Patient: 49-year-old female Admission Diagnosis: Hypertensive urgency with dizziness and diplopia Discharge Diagnosis: - Hypertensive urgency - Visual disturbance (diplopia/blurred vision), likely hypertension-related - Type 2 diabetes mellitus, insulin-dependent, on GLP-1 therapy - Hyperlipidemia - Morbid obesity (BMI 50) - Asthma Hospital Course: The patient presented with severely elevated blood pressures (maximum 237/117 mmHg) associated with dizziness and diplopia. Comprehensive stroke evaluation including CT head, MRI brain, and CTA head and neck was unremarkable. Neurologic examination remained nonfocal throughout admission. Troponins were negative, TSH was within normal limits, and transthoracic echocardiogram showed no acute abnormalities. HbA1c was 7.8%. Blood pressure gradually improved with medication adjustment. Antihypertensive regimen was optimized with continuation of amlodipine and initiation of lisinopril and hydrochlorothiazide. Visual symptoms improved with blood pressure control and were felt to be secondary to severe hypertension rather than an acute cerebrovascular event. Renal artery ultrasound was ordered to evaluate for secondary causes of hypertension. Liver function tests were obtained. The patient received counseling on medication adherence, low-sodium diet, and home blood pressure monitoring. Physical and occupational therapy evaluated the patient during admission. DVT prophylaxis was provided with enoxaparin. The patient remained hemodynamically stable and neurologically intact and is appropriate for discharge. Condition at Discharge: Improved and stable. Blood pressure trending down though not yet at goal. Visual symptoms improving. Discharge Medications: - Amlodipine ? continue home dose - Lisinopril 20 mg PO daily - Hydrochlorothiazide 50 mg PO daily - Statin ? increase dose to 20 mg daily - Metformin ? continue home regimen - GLP-1 agonist ? continue home regimen - Insulin ? continue home regimen - Home asthma medications ? continue as prescribed Discharge Instructions: - Check and record blood pressure twice daily and bring log to follow-up visits - Adhere strictly to antihypertensive regimen - Follow a low-sodium, diabetic-appropriate diet - Avoid NSAIDs and OTC decongestants - Avoid driving until diplopia has fully resolved Follow-Up: - Primary care physician: within 48?72 hours for blood pressure reassessment - Ophthalmology: outpatient follow-up for visual symptoms - Nutrition counseling as outpatient for weight management Return Precautions: Seek immediate medical attention for worsening vision changes, severe headache, focal neurologic deficits, chest pain, shortness of breath, syncope, or persistently elevated blood pressure >180/120 mmHg despite medications. Code Status: Full code Disposition: Discharged home with close outpatient follow-up This note was generated using voice recognition software; minor director of global marketing errors may be present. Time spent discussing smoking cessation with patient: more than 10 minutes Status at Discharge Functional status at discharge: independent ambulation Overall status at discharge: patient is progressing back to baseline Time Attestation Discharge Coordination Time (in mins): 75 Quality: Safe Use of Opioids Does Pt have an Active Cancer Diagnosis on the Problem List?: No Quality: Stroke Does the patient have a stroke diagnosis?: No Physical Exam Exam: Exam: General: AOx3, morbid obesity, miri plethoric face Resp: CTA bilaterally CVS: S1, S2, RRR GI: +BS, NT, no distention Neuro: Reports headache and diplopia improved with new BP meds Psych: Appropriate affect Vital Signs: Vital Signs: Last Vital Signs Temp 97.2 F 11/06/25 11:47 Pulse 110 H 11/06/25 11:47 Resp 20 11/06/25 11:47 BP 139/82 11/06/25 08:00 Pulse Ox 94 11/06/25 11:47 O2 Del Method Room Air 11/06/25 11:47 BMI result Body Mass Index 50.0 Neuro: Other: She is alert and oriented with normal intellectual functions. Cranial nerves 2-12 are normal. Muscle tone and strength are normal in all 4 extremities. Joertm-je-izct test ouqd-vqiq-qzau tests are normal. There is no nystagmus. I could not detect any definite eye movement abnormalities neither in the lateral rectus or the superior oblique. Symptomatically she appears to have either a left lateral rectus or a superior oblique weakness. DS: Data Data Completed and Pending Labs on day of discharge: Laboratory Results - last 24 hr 11/05/25 11/05/25 11/05/25 05:19 16:14 19:08 WBC RBC Hgb Hct MCV MCH MCHC RDW Plt Count MPV Immature Gran % (Auto) Neut % (Auto) Lymph % (Auto) [place] % (Auto) Eos % (Auto) Baso % (Auto) Lymph # (Auto) [place] # (Auto) Eos # (Auto) Baso # (Auto) Abs Immat Gran (auto) Absolute Neuts (auto) Absolute Nucleated RBC Nucleated RBC % (auto) Sodium Potassium Chloride Carbon Dioxide Anion Gap BUN Creatinine Estim Creat Clear Calc Estimated GFR POC Glucose 124 H Random Glucose Estimat Average Glucose 177 Hemoglobin A1c % 7.8 H Calcium Magnesium Total Bilirubin AST ALT Alkaline Phosphatase Total Protein Albumin Triglycerides 127 Cholesterol 112 LDL Cholesterol, Calc 54 HDL Cholesterol 33 L 11/05/25 11/06/25 11/06/25 19:44 07:39 08:28 WBC 9.1 RBC 5.29 Hgb 14.5 Hct 44.5 MCV 84.1 MCH 27.4 MCHC 32.6 RDW 13.0 Plt Count 304 MPV 9.6 Immature Gran % (Auto) 0.3 Neut % (Auto) 58.9 Lymph % (Auto) 31.2 [place] % (Auto) 5.8 Eos % (Auto) 2.7 Baso % (Auto) 1.1 Lymph # (Auto) 2.9 [place] # (Auto) 0.5 Eos # (Auto) 0.3 Baso # (Auto) 0.1 Abs Immat Gran (auto) 0.03 Absolute Neuts (auto) 5.4 Absolute Nucleated RBC 0.000 Nucleated RBC % (auto) 0.0 Sodium 139 Potassium 4.0 Chloride 102 Carbon Dioxide 25 Anion Gap 16 BUN 11 Creatinine 0.68 Estim Creat Clear Calc 127.7 Estimated GFR > 60 POC Glucose 186 H 154 H Random Glucose 198 H Estimat Average Glucose Hemoglobin A1c % Calcium 9.8 D Magnesium 2.0 Total Bilirubin 0.4 AST 32 H ALT 36 H Alkaline Phosphatase 95 Total Protein 7.6 Albumin 4.7 Triglycerides Cholesterol LDL Cholesterol, Calc HDL Cholesterol 11/06/25 11:16 WBC RBC Hgb Hct MCV MCH MCHC RDW Plt Count MPV Immature Gran % (Auto) Neut % (Auto) Lymph % (Auto) [place] % (Auto) Eos % (Auto) Baso % (Auto) Lymph # (Auto) [place] # (Auto) Eos # (Auto) Baso # (Auto) Abs Immat Gran (auto) Absolute Neuts (auto) Absolute Nucleated RBC Nucleated RBC % (auto) Sodium Potassium Chloride Carbon Dioxide Anion Gap BUN Creatinine Estim Creat Clear Calc Estimated GFR POC Glucose 181 H Random Glucose Estimat Average Glucose Hemoglobin A1c % Calcium Magnesium Total Bilirubin AST ALT Alkaline Phosphatase Total Protein Albumin Triglycerides Cholesterol LDL Cholesterol, Calc HDL Cholesterol Discharge Plan Discharge Anticipated Discharge Date/Time: 11/06/25 12:41 Patient Disposition: Home, Self-Care Discharge Diagnosis: Hypertensive urgency with diplopia Referrals: Taye Cruz MD [Physician, Cardiology] - 1 Week Carlos Tripp MD [Physician, Pulmonology] - 1 Week Sharmin Issa NP [Primary Care Provider, Internal Medicine] - 1 Week Discharge Medications: New lisinopril 20 mg tablet 20 mg PO DAILY 30 Days Qty: 30 0RF hydrochlorothiazide 50 mg tablet 50 mg PO DAILY 60 Days Qty: 60 3RF Continued cetirizine 10 mg tablet 10 mg PO BEDTIME atorvastatin 10 mg tablet 10 mg PO BEDTIME amlodipine 10 mg tablet 10 mg PO BEDTIME metformin 1,000 mg tablet 1,000 mg PO BID fluticasone propion-salmeterol 500-50 mcg/dose blister with device 1 ea INHALATION BID montelukast 10 mg Tablet 10 mg PO BEDTIME albuterol sulfate [Ventolin HFA] 90 mcg/actuation HFA aerosol inhaler 2 puff INHALATION Q6H PRN (Reason: Shortness Of Breath Or Wheezing) vitamin B complex Capsule 1 cap PO BEDTIME cholecalciferol (vitamin D3) [Vitamin D3] 25 mcg (1,000 unit) Tablet 25 mcg PO BEDTIME insulin degludec [Tresiba FlexTouch U-100] 100 unit/mL (3 mL) insulin pen 14 unit subcut DAILY Ozempic 1 mg/dose (4 mg/3 mL) pen injector 1 mg subcut TU@0900 Discontinued lisinopril-hydrochlorothiazide 20-12.5 mg tablet 1 tab PO BEDTIME Discharge Orders: Discharge Order (Routine); Ordered 11/06/25 Ordered By: Eileen Gordon Diet: Low salt diet Activity on Discharge: As tolerated Stand Alone Forms: Patient Portal Discharge page Print Language: Citizen Of [place] Activity Restrictions/Additional Instructions: Medications: - Continue prescribed antihypertensive medications exactly as directed. - Do not miss doses or stop medications abruptly. - Avoid NSAIDs, decongestants, and stimulant-containing OTC products unless approved. Blood Pressure Monitoring: - Check blood pressure at home twice daily (morning and evening) and record readings. - Bring BP log to follow?up visit. Activity and Safety: - Avoid driving, operating heavy machinery, or climbing ladders until diplopia fully resolves. - Change positions slowly to avoid dizziness or falls. - Limit strenuous activity for the next 48?72 hours. Diet and Lifestyle: - Follow a low-sodium diet. - Avoid excess caffeine, alcohol, and tobacco. - Maintain adequate hydration. Follow Up: - Primary care or cardiology: within 48?72 hours for BP reassessment and medication adjustment. - Ophthalmology or neurology: as scheduled, especially if diplopia persists beyond a few days. - Pulmonology - Sleep medicine for sleep study - Cardiology- for better management of your severe high BP Return to the ED immediately if any of the following occur: - Worsening or persistent diplopia or new vision loss - Severe headache, confusion, weakness, numbness, slurred speech, or facial droop - Chest pain, shortness of breath, syncope - Blood pressure persistently >180/120 mmHg despite medications - New nausea/vomiting or inability to take medications Patient Education: - Hypertensive urgency requires close outpatient follow up to prevent stroke, heart attack, kidney injury, and vision loss. - Adherence to medications and follow up is critical. Contact Information: Call the your PCP with questions or medication issues prior to your follow up appointment. Care Plan Goals: See above Health Concerns: See above Plan of Treatment: See above Assessment: See above
== END 2025-11-06 14:15 | disposition home or self-care (01) ==
LOC: HO.ED 20:52 → HO.EDOVER 23:57 → HO.IMC 11-05 07:37
PROVIDERS: Physician Assistant; Student in an Organized Health Care Education/Training Program; Admitting Provider Nurse Practitioner Family; Emergency Provider Emergency Medicine; PCP Nurse Practitioner Primary Care; Visit Provider Student in an Organized Health Care Education/Training Program
DX: I16.0 Hypertensive urgency (principal); H53.2 Diplopia; I10 Essential (primary) hypertension; R42 Dizziness and giddiness; R51.9 Headache, unspecified; E11.9 Type 2 diabetes mellitus without complications; E78.5 Hyperlipidemia, unspecified; J45.909 Unspecified asthma, uncomplicated; E66.01 Morbid (severe) obesity due to excess calories; Z68.43 Body mass index [BMI] 50.0-59.9, adult; Z79.4 Long term (current) use of insulin; Z79.899 Other long term (current) drug therapy
CPT/HCPCS: 36415; 70450; 70496; 70498; 70551; 80053; 80061; 82803; 82947; 83036; 83735; 84443; 84484; 85025; 85610; 85730; 93005; 93306; 93975; 96372; 97161; 97165; 99222; 99285; J1650; Q9957; Q9967

== ENCOUNTER → 2025-11-04 16:31 | Outpatient (BNV) | payer OTHER, SELFPAY | PROVIDERS: Admitting Provider Nurse Practitioner Family; Emergency Provider Emergency Medicine; PCP Nurse Practitioner Primary Care; Visit Provider Internal Medicine Cardiovascular Disease | DX: I10 Essential (primary) hypertension (principal); R42 Dizziness and giddiness; H53.8 Other visual disturbances | CPT/HCPCS: 93010 ==

== ENCOUNTER → 2025-11-04 18:15 | Outpatient (BNV) | payer OTHER, SELFPAY | PROVIDERS: PCP Nurse Practitioner Primary Care; Visit Provider Radiology Diagnostic Radiology | DX: R51.9 Headache, unspecified (principal); I10 Essential (primary) hypertension | CPT/HCPCS: 70450 ==

== ENCOUNTER 2025-11-04 22:57 | Outpatient (BNV) | payer OTHER, SELFPAY | END 2025-11-05 07:00 | PROVIDERS: Admitting Provider Nurse Practitioner Family; Emergency Provider Emergency Medicine; PCP Nurse Practitioner Primary Care; Visit Provider Internal Medicine Cardiovascular Disease | DX: I34.81 Nonrheumatic mitral (valve) annulus calcification (principal); I42.2 Other hypertrophic cardiomyopathy | CPT/HCPCS: 93306 ==

== ENCOUNTER → 2025-11-04 22:57 | Outpatient (BNV) | payer OTHER, SELFPAY | PROVIDERS: Admitting Provider Nurse Practitioner Family; Emergency Provider Emergency Medicine; PCP Nurse Practitioner Primary Care; Visit Provider Student in an Organized Health Care Education/Training Program | DX: I16.0 Hypertensive urgency (principal) | CPT/HCPCS: 99222; 99232; 99239 ==

== ENCOUNTER → 2025-11-04 22:57 | Outpatient (BNV) | payer OTHER, SELFPAY | PROVIDERS: Admitting Provider Nurse Practitioner Family; Emergency Provider Emergency Medicine; PCP Nurse Practitioner Primary Care; Visit Provider Psychiatry & Neurology Neurology | DX: I16.0 Hypertensive urgency (principal); H53.2 Diplopia | CPT/HCPCS: 99222 ==

== ENCOUNTER → 2025-11-04 22:57 | Outpatient (BNV) | payer OTHER, SELFPAY | PROVIDERS: Admitting Provider Nurse Practitioner Family; Emergency Provider Emergency Medicine; PCP Nurse Practitioner Primary Care; Visit Provider Internal Medicine Cardiovascular Disease | DX: I16.0 Hypertensive urgency (principal) | CPT/HCPCS: 99222 ==